=== PATIENT | female | born 1995 | race Caucasian/White ===

== ENCOUNTER 2016-11-27 22:58 | Inpatient (IN) ==
[2016-11-28 02:02] LABS: ABG Base Excess -0.7 mEq/L (-2.0 to 3.0); ABG HCO3 27.6 mEQ/L (21-27); ABG Oxygen Saturation 100 % (95-98); ABG PCO2 60 mmHg (35-45); ABG PH 7.27 pH Units (7.32-7.45); ABG PO2 254 mmHg (85-104); ABG TCO2 29.4 mEq/L (20-26)
[2016-11-28 02:04] LABS: Blood Gas FiO2 80 %
[2016-11-28] MEDS ORDERED: Naloxone 0.4 MG/ML INJ IVP PRN (03:46)
[2016-11-28] MEDS ORDERED: *HR* Morphine 2 MG/ML SYRINGE IVP PRN (03:46)
[2016-11-28] MEDS ORDERED: Lacri-Lube 3.5 GM TUBE BOTH EYES PRN (03:46)
[2016-11-28] MEDS ORDERED: Ondansetron 4 MG/2 ML VIAL IVP PRN (03:46)
[2016-11-28] MEDS ORDERED: D5% in 0.9% NACL w KCl 20 MEQ/1,000 ML MLS IVC SCH (04:00)
--- NOTE | 2016-11-28 04:05 | Internal Med History&Physical ---
Date of Encounter: 11/28/16 Time of Encounter: 03:56 Assessment and Plan (1) Drug overdose Current visit: No Status: Acute 1. Care is supportive now with Ventilator, IVF, ICU monitoring and care. 2. Consult ICU team in am to assume care on ventilator and iCU management. 3. Will order Head CT to rule out any intracranial pathology 4. Suicide precautions. 55 minutes critical care time thus far evaluating and treating patient. Qualifiers: Encounter type: initial encounter Injury intent: undetermined intent Qualified Code(s): T50.904A - Poisoning by unspecified drugs, medicaments and biological substances, undetermined, initial encounter (2) Respiratory failure requiring intubation Current visit: No Status: Acute 1. Ventilator support. 2. ABG suggest respiratory acidosis. I increased vent rate and ordered repeat ABG. 3. Consult pulmonology for ICU management. 4. If patient shows no sign of purposeful neurologic activity off the vent, she may need further testing to evaluate for anoxic brain injury and/or brain . (3) DVT prophylaxis Current visit: Yes Status: Acute 1. Heparin SQ. Internal Medicine - H&P: HPI Chief complaint: overdose; transfer from [place] Admitted From: Hospital to Hospital Transfer Plans for Post Hospital Care: Home History of present illness: Ms. Fournier is a 21 year old female who was transferred to the ICU from [facility] emergency department. She presented there tonight after becoming unresponsive at a local [facility] parking lot. She traveled to [place] from [place] with her friends. When she left [place], she was alert and appropriate. However, by the time she arrived in [place] at the local [facility], she became confused, disoriented, unresponsive, and having difficulty breathing. This information is all according to reports passed along to me. When patient arrived to ER at [place], she was noted to be unresponsive, hypoxemic, and unable to protect her airway. She was therefore emergently intubated and stabilized by Dr. White. He then requested transfer to the ICU here for ongoing care. Upon my assessment of the patient here, she is unresponsive and on the ventilator. She is on minimal sedation with propofol. Her mother has arrived and confirms that she has an intensive drug use history over the last 5 years. Her mother states she has tried anything and everything. Mother also states the patient claimed to be suicidal recently, and she worries that this overdose might have been an attempted suicide. I am unable to obtain any history from patient whatsoever. She is on minimal dosing of propofol and is unresponsive. She is breathing synchronously with the ventilator. Patient does not have any significant pupillary response. She does have a gag reflux, however, on deep suctioning of her endotracheal tube. Additionally, she does have a corneal reflex according to her nurse. I reviewed her labs and information from [facility] ER. Her drug tox screen was positive for cocaine and marijuana. Mother states she has been using ICE lately, which she states is a new form of methamphetamine on the street. Past Med Surg Social Fam HX - Past Medical History Source: old records reviewed, obtained from family Medical history: asthma, thyroid disease, other (Hepatits C; IVDA) Psychiatric history: no psych history - Past Surgical History Surgical History: cholecystectomy - Social History Smoking Status: Current every day smoker Alcohol use: rarely Drug use: cocaine, opiates, marijuana, IVDU Current living situation: Home, With Family Activity Level: Independent ambulation - Family History Mother Living Status: Still Living Hx Family Cardiac Disorders: No Hx Family Respiratory Disorders: No Father Living Status: Still Living Hx Family GI Disorders: Yes (cirrhosis) Internal Medicine - H&P: Meds Unable To Obtain [Unable to Obtain] 11/27/16 [History] Allergies ibuprofen Allergy (Unknown, Verified 11/28/16 01:45) Unknown acetaminophen [From Darvocet-N] Allergy (Verified 11/28/16 01:45) Unknown aspirin [ASA] Allergy (Verified 11/28/16 01:44) unknown propoxyphene [From Darvocet-N] Allergy (Verified 11/28/16 01:45) Unknown ROS unobtainable: due to endotracheal tube, due to mental status - Constitutional Vitals: Temp Pulse Resp BP Pulse Ox 96.4 F L 49 12 179/101 100 11/28/16 01:33 11/28/16 03:00 11/28/16 03:00 11/28/16 03:00 11/28/16 03:00 Exam: intubated; unresponsive; on minimal sedation - Head Head exam: Present: atraumatic, normal inspection - Expanded Head Exam Head exam expanded: Absent: abrasion, contusion, general tenderness - Eye Eye exam: Absent: PERRL (sluggish with zero to minimal response), scleral icterus - ENT ENT exam: Present: mucous membranes dry, normal exam, normal oropharynx Additional comments: ETT in place - Neck Neck exam general surgery: Present: full ROM, normal inspection, supple. Absent : lymphadenopathy, nuchal rigidity - Respiratory Respiratory exam: Present: CTAB. Absent: accessory muscle use, rales, respiratory distress, rhonchi, wheezes - Cardiovascular Cardiovascular exam: Present: bradycardia, RRR, +S1, +S2. Absent: diastolic murmur, JVD, systolic murmur - GI/Abdominal GI/Abdominal exam: Present: hypoactive bowel sounds, soft, no peritoneal signs. Absent: guarding, hepatomegaly, rebound, splenomegaly - Extremities Exam Extremities exam: Present: normal inspection, warm, radial pulses palpable and symetrical. Absent: pedal edema - Back Exam Back exam: Present: normal inspection. Absent: tenderness - Neurological Exam Additional comments: sedated and unresponsive; unable to fully assess; + gag reflex; + corneal reflex ; minimal, if any, pupillary reflex - Psychiatric Psychiatric exam: Present: suicidal ideation (reported from mother) Additional comments: unresponsive on vent; unable to assess - Skin Skin exam: Present: dry, warm Additional comments: multiple tattoos and track mcgill noted Internal Med - H&P Results - Labs Labs: I reviewed her labs at [place] include the following: WBC 7.1 Hemoglobin 14.2 Hematocrit 41.8 [id number] Sodium 144 Potassium 3.5 Chloride 112 CO2 22 BUN 15 Creatinine 0.79 Urine test negative Urine drug screen positive for cocaine and marijuana - ABG Interpretation ABG results: 11/28/16 01:53 ABG pH 7.27 L ABG pCO2 60 H ABG pO2 254 H ABG HCO3 27.6 H ABG Total CO2 29.4 H ABG O2 Saturation 100 H ABG Base Excess -0.7 - EKG Data -: EKG Interpreted by Myself EKG shows normal: sinus rhythm Rate: bradycardia - EKG Data Prior EKG available for review: no EKG comments: 11/28/16 04:13 Sinus bradycardia; no changes - Impressions ITS Impressions Chest X-Ray 11/28/16 01:46 IMPRESSION: No acute cardiopulmonary disease. Endotracheal tube has been placed in satisfactory position. The tip of the oral gastric tube is in the stomach with the side hole near the GE junction. D/ / Levi Seals MD / Levi Seals MD Interpreting Provider: Levi Seals MD X-Ray 11/28/16 01:47 IMPRESSION: The side hole of the oral gastric tube is at the GE junction and the tube should be advanced 3-4 cm. D/ / Levi Seals MD / Levi Seals MD Interpreting Provider: Levi Seals MD - Diagnostic Studies Chest x-ray Status: image reviewed by me (negative; ETT in place)
[2016-11-28 04:53] LABS: Basophils # 0.1 K/mcL (0.0-0.2); Basophils % 0.5 %; Eosinophils # 0.2 K/mcL (0.0-0.6); Eosinophils % 2.4 %; Hematocrit 46.5 % (35.3-44.9); Hemoglobin 14.7 g/dL (11.5-15.4); Immature Granulocytes % 0.4 % (0-4); Lymphocytes # 2.6 K/mcL (0.6-4.6); Mean Corpuscular HGB Conc 31.6 g/dL (31.6-35.5); Mean Corpuscular Hemoglobin 30.2 pg (28.0-33.3); Mean Corpuscular Volume 95.5 fL (83.0-100.0); Mean Platelet Volume 9.5 fL (9.4-12.4); Monocytes # 0.8 K/mcL (0.0-1.3); Monocytes % 8.4 %; Neutrophils # 5.8 K/mcL (1.6-8.9); Platelet Count 234 K/mcL (140-400); Red Blood Count 4.87 M/mcL (3.82-4.97); Red Cell Distribution Width 13.6 % (11.5-14.5); Segmented Neutrophils % 61.3 %
[2016-11-28] MEDS: *HR* Heparin 5,000 UNIT/ML VIAL SQ SCH ×2 (04:53→18:06)
[2016-11-28] MEDS: Lacri-Lube 3.5 GM TUBE BOTH EYES SCH ×4 (04:54→20:03)
[2016-11-28 05:01] LABS: ABG Base Excess 1.7 mEq/L (-2.0 to 3.0); ABG Oxygen Saturation 99 % (95-98); ABG PCO2 55 mmHg (35-45); ABG PH 7.33 pH Units (7.32-7.45); ABG PO2 131 mmHg (85-104); ABG TCO2 30.7 mEq/L (20-26); Blood Gas FiO2 40 %
[2016-11-28 05:05] LABS: Alanine Aminotransferase 379 Units/L (0-55); Albumin 3.3 g/dL (3.5-5.0); Albumin/Globulin Ratio 0.8 (1.1-2.2); Alkaline Phosphatase 89 Units/L (38-126); Aspartate Amino Transferase 233 Units/L (5-34); BUN/Creatinine Ratio 7 (6-26); Bilirubin,Direct 0.3 mg/dL (0.0-0.5); Bilirubin,Indirect 0.5 mg/dL (0.0-1.2); Bilirubin,Total 0.8 mg/dL (0.2-1.2); Calcium 8.8 mg/dL (8.6-10.8); Carbon Dioxide 19 mEq/L (19-29); Chloride 115 mEq/L (98-109); Globulin 3.9 g/dL (2.4-3.5); Glucose 82 mg/dL (70-99); Magnesium 2.4 mg/dL (1.6-2.6); Osmolality,Calculated 300 (280-300); Potassium 4.4 mEq/L (3.5-4.5); Sodium 147 mEq/L (136-145); Total Protein 7.2 g/dL (6.0-8.3); eGFR For African Americans > 60 (> 60); eGFR For Non-African Americans > 60 (> 60)
[2016-11-28 05:07] LABS: Blood Urea Nitrogen 5 mg/dL (7-20)
[2016-11-28] MEDS ORDERED: D5% in 0.9% NACL 1,000 ML IVC ONE (05:27)
[2016-11-28] MEDS: D5% in 0.9% NACL 1,000 ML IVC SCH ×2 (05:34→19:35)
[2016-11-28 08:04] LABS: Creatine Kinase 53 Units/L (29-168)
--- NOTE | 2016-11-28 08:46 | Pulmonology Consult Note ---
<Bradley Van - Last Filed: 11/28/16 09:09> Date of Encounter: 11/28/16 Time of Encounter: 08:30 Assessment and Plan (1) Drug overdose Current Visit: Yes Status: Acute 21 y/o female hx of extensive illicit drug use presented unresponsive and intubated from [place]. She was found unresponsive, confused and altered at [facility] in [place]. Unsure how long she was down for. Mother states she has had SI in recent past and has tried cocaine, heroin, meth in the past. EKG sinus bradycardia, pinpoint pupils and hypoxemic. Received total 5mg narcan before being transferred to [facility] ICU. ABG pH 7.33 with pCO2 55. UDS positive for marijuana and cocaine. ETOH level WNL presentation of sinus bradycardia and hypoxemia points to an opiate overdose etiology however UDS negative for opiates. She was given additional 2mg of Narcan this morning with minimal response. Obtain CT head CPK WNL Qualifiers: Encounter type: initial encounter Injury intent: undetermined intent Qualified Code(s): T50.904A - Poisoning by unspecified drugs, medicaments and biological substances, undetermined, initial encounter (2) Respiratory failure requiring intubation Current Visit: Yes Status: Acute 2nd to drug overdose Patient is off of sedation but continues to be minimally responsive. She is spontaneously breathing off of mechanical ventilator support and still intubated. unable to support her airway (3) Hepatitis C Current Visit: Yes Status: Acute 2013 hepatitis panel had Hep C antibody + will repeat has elevated ALT and AST. Los and alk phos WNL (less likely gallbladder etiology). ALT:AST ratio <2 less likely to be alcohol. ETOH negative. Start on bananna bag. Patient also had cholecystectomy in 2011. Qualifiers: Viral hepatitis chronicity: unspecified Hepatic coma status: without hepatic coma Qualified Code(s): B19.20 - Unspecified viral hepatitis C without hepatic coma (4) Suicidal ideation Current Visit: Yes Status: Acute Patient mother stated she has had SI recently. Once patient is more responsive will evaluate her and consult psychiatry. (5) DVT prophylaxis Current Visit: Yes Status: Acute EPCDS and heparin History of Present Illness Consult date: 11/28/16 Requesting physician: Rod Larson Reason for consult: other (ICU management) Chief complaint: AMS/drug overdose History of present illness: 21 y/o female transfer from [facility]. She was found unresponsive, confused and dsoriented at a local [employer] parking lot. At [place] paient was unresponsive, hypoxemic and emergently intubated. She was transferred to ICU at [facility]. SHe remained unresponsive on minimal sedation with propofol. Patient's mother states she has extensive hx of illicit drug use. Patient has recently been suicidal. She was noted to have gag and corneal reflex, but minimal pupillary response. CBC was WNL. ASL and ALT elevated. previous Hep C serology was positive. USD positive for cocaine and marijuana. CXR was negative for acute changes. EKG is sinus bradycardia. This morning patient is unresponsive, intubated and off of propofol. Breathing over the ventilator. + GAG and corneal reflex. Past Med Surg Social Fam HX - Past Medical History Medical history: asthma, thyroid disease, other (Hepatits C; IVDA) Psychiatric history: no psych history - Past Surgical History Surgical History: cholecystectomy - Social History Smoking Status: Current every day smoker Alcohol use: rarely Drug use: cocaine, opiates, marijuana, IVDU - Family History Mother Living Status: Still Living Hx Family Cardiac Disorders: No Hx Family Respiratory Disorders: No Father Living Status: Still Living Hx Family GI Disorders: Yes (cirrhosis) Medications and Allergies Unable To Obtain [Unable to Obtain] 11/27/16 [History] Allergies ibuprofen Allergy (Unknown, Verified 11/28/16 01:45) Unknown acetaminophen [From Darvocet-N] Allergy (Verified 11/28/16 01:45) Unknown aspirin [ASA] Allergy (Verified 11/28/16 01:44) unknown propoxyphene [From Darvocet-N] Allergy (Verified 11/28/16 01:45) Unknown ROS unobtainable: due to endotracheal tube, due to mental status All Systems: A 10-system review of systems was performed and is negative for pertinent findings except as documented above in the HPI. Physical Examination Vital Signs: Vital Signs, Last 4 Hours Temp Pulse Resp BP Pulse Ox 11/28/16 08:00 83 22 160/89 95 11/28/16 07:47 69 11/28/16 07:46 98.1 F 11/28/16 07:10 98.1 F 11/28/16 07:00 72 19 159/92 95 11/28/16 06:10 16 155/94 968 11/28/16 06:00 69 16 155/94 98 11/28/16 05:00 57 16 165/95 100 11/28/16 04:31 50 General appearance: comatose Eyes: nonicteric, other (pin point pupils ) Neck: no lymphadenopathy Effort: normal (spontaneious ) Inspection: other (spontatneous ventilation ) Auscultation: bilateral: clear Cardiovascular: regular rate and rhythm Gastrointestinal: normoactive bowel sounds, non-distended Integumentary: normal Extremities: no cyanosis, no edema, no clubbing unable to assess due to mental status Ventilator Settings Ventilator Settings: Ventilator Settings, Last 8 Hours Ventilator Mode VC+ Ventilator Mode VC+ Ventilator Mode VC+ Ventilator Mode VC+ Ventilator Mode VC+ Ventilator Mode VC+ Ventilator Mode VC+ Ventilator Mode VC+ Ventilator Mode VC+ Ventilator Mode VC+ Ventilator Mode VC+ Ventilator Tidal Volume 450 Setting Ventilator Tidal Volume 450 Setting Ventilator Tidal Volume 450 Setting Ventilator Tidal Volume 450 Setting Ventilator Tidal Volume 450 Setting Ventilator Tidal Volume 450 Setting Ventilator Tidal Volume 450 Setting Ventilator Tidal Volume 450 Setting Ventilator Tidal Volume 450 Setting Ventilator Tidal Volume 450 Setting Ventilator Tidal Volume 450 Setting Ventilator Respiratory Rate 14 Setting Ventilator Respiratory Rate 14 Setting Ventilator Respiratory Rate 14 Setting Ventilator Respiratory Rate 14 Setting Ventilator Respiratory Rate 12 Setting Ventilator Respiratory Rate 14 Setting Ventilator Respiratory Rate 12 Setting Ventilator Respiratory Rate 12 Setting Ventilator Respiratory Rate 12 Setting Ventilator Respiratory Rate 12 Setting Ventilator Respiratory Rate 12 Setting Actual Respiratory Rate 18 Actual Respiratory Rate 16 Actual Respiratory Rate 16 Actual Respiratory Rate 14 Actual Respiratory Rate 14 Actual Respiratory Rate 12 Actual Respiratory Rate 12 Actual Respiratory Rate 12 Actual Respiratory Rate 12 Positive End Expiratory 5 Pressure Positive End Expiratory 5 Pressure Positive End Expiratory 5 Pressure Positive End Expiratory 5 Pressure Positive End Expiratory 5 Pressure Positive End Expiratory 5 Pressure Positive End Expiratory 5 Pressure Positive End Expiratory 5 Pressure Positive End Expiratory 5 Pressure Positive End Expiratory 5 Pressure Positive End Expiratory 5 Pressure Peak Inspiratory Airway 22 Pressure Peak Inspiratory Airway 22 Pressure Peak Inspiratory Airway 22 Pressure Peak Inspiratory Airway 20 Pressure Peak Inspiratory Airway 20 Pressure Peak Inspiratory Airway 21 Pressure Peak Inspiratory Airway 21 Pressure Peak Inspiratory Airway 26 Pressure Peak Inspiratory Airway 27 Pressure Results - Laboratory Findings CBC and BMP: 11/28/16 04:25 11/28/16 04:25 ABG ABG pH 7.33 pH Units (7.32-7.45) 11/28/16 04:48 ABG pCO2 55 mmHg (35-45) H 11/28/16 04:48 ABG pO2 131 mmHg (85-104) H 11/28/16 04:48 ABG O2 Saturation 99 % (95-98) H 11/28/16 04:48 Abnormal lab findings: Abnormal lab results Hct 46.5 % (35.3-44.9) H 11/28/16 04:25 ABG pCO2 55 mmHg (35-45) H 11/28/16 04:48 ABG pO2 131 mmHg (85-104) H 11/28/16 04:48 ABG HCO3 29.0 mEQ/L (21-27) H 11/28/16 04:48 ABG Total CO2 30.7 mEq/L (20-26) H 11/28/16 04:48 ABG O2 Saturation 99 % (95-98) H 11/28/16 04:48 Sodium 147 mEq/L (136-145) H 11/28/16 04:25 Chloride 115 mEq/L (98-109) H 11/28/16 04:25 BUN 5 mg/dL (7-20) L 11/28/16 04:25 AST 233 Units/L (5-34) H 11/28/16 04:25 ALT 379 Units/L (0-55) H 11/28/16 04:25 Albumin 3.3 g/dL (3.5-5.0) L 11/28/16 04:25 Globulin 3.9 g/dL (2.4-3.5) H 11/28/16 04:25 Albumin/Globulin Ratio 0.8 (1.1-2.2) L 11/28/16 04:25 - Diagnostic Findings Chest x-ray: report reviewed - Clinical Findings Intake & Output: Intake & Output 11/27/16 11/28/16 11/28/16 23:59 07:59 15:59 Intake Total 110 / 110 Output Total 900 / 900 Balance -900 / -900 110 / 110 Weight 87.7 kg Consult Discharge Plan - Plan Referrals: NO,PCP [Primary Care Provider] - <Efrain Louise - Last Filed: 11/28/16 16:32> Date of Encounter: 11/28/16 All Systems: A 10-system review of systems was performed and is negative for pertinent findings except as documented above in the HPI. Physical Examination Vital Signs: Vital Signs, Last 4 Hours Temp Pulse Resp BP Pulse Ox 11/28/16 15:23 99.7 F H 96 23 145/89 95 11/28/16 15:00 99.7 F H 96 23 145/89 95 11/28/16 14:00 91 24 152/82 92 11/28/16 13:32 90 19 153/83 93 11/28/16 13:00 90 19 153/83 93 Ventilator Settings Ventilator Settings: Ventilator Settings, Last 8 Hours Ventilator Mode CPAP Ventilator Mode CPAP Actual Respiratory Rate 15 Actual Respiratory Rate 24 Positive End Expiratory 5 Pressure Positive End Expiratory 5 Pressure Peak Inspiratory Airway 11 Pressure Peak Inspiratory Airway 10 Pressure Results - Laboratory Findings CBC and BMP: 11/28/16 04:25 11/28/16 04:25 ABG ABG pH 7.33 pH Units (7.32-7.45) 11/28/16 04:48 ABG pCO2 55 mmHg (35-45) H 11/28/16 04:48 ABG pO2 131 mmHg (85-104) H 11/28/16 04:48 ABG O2 Saturation 99 % (95-98) H 11/28/16 04:48 Abnormal lab findings: Abnormal lab results Hct 46.5 % (35.3-44.9) H 11/28/16 04:25 ABG pCO2 55 mmHg (35-45) H 11/28/16 04:48 ABG pO2 131 mmHg (85-104) H 11/28/16 04:48 ABG HCO3 29.0 mEQ/L (21-27) H 11/28/16 04:48 ABG Total CO2 30.7 mEq/L (20-26) H 11/28/16 04:48 ABG O2 Saturation 99 % (95-98) H 11/28/16 04:48 Sodium 147 mEq/L (136-145) H 11/28/16 04:25 Chloride 115 mEq/L (98-109) H 11/28/16 04:25 BUN 5 mg/dL (7-20) L 11/28/16 04:25 AST 233 Units/L (5-34) H 11/28/16 04:25 ALT 379 Units/L (0-55) H 11/28/16 04:25 Albumin 3.3 g/dL (3.5-5.0) L 11/28/16 04:25 Globulin 3.9 g/dL (2.4-3.5) H 11/28/16 04:25 Albumin/Globulin Ratio 0.8 (1.1-2.2) L 11/28/16 04:25 Hepatitis C Ab Screen Reactive (Nonreactive) H 11/28/16 09:53 - Clinical Findings Intake & Output: Intake & Output 11/28/16 11/28/16 11/28/16 07:59 15:59 23:59 Intake Total 110 / 110 Output Total 900 / 900 325 / 325 Balance -900 / -900 -215 / -215 Weight 87.7 kg 87.2 kg - Attending Attestation I examined this patient and my medical decision-making was reviewed with the ASPHALT BLENDER/PA/Advanced Practice Nurse/Resident Physician. I agree with the documented findings, disposition and treatment plan as described except to the extent set forth below. Patient seen and examined. Labs, radiology, chart personally reviewed. Agree with resident's history and physical, assessment, plan with following comments: ENTRY LEVEL JAVA DEVELOPER: Patient lisa not follows commands, This is most likely related to over dose and it is possible there is some other illicit drugs that she has taken which is not detected on routine drug screen test. CT of the head was done. When patient wakes up if there is evidence of suicidal ideation then we will consult psychiatrist. We have to watch carefully for withdrawal symptoms Pulmonary: Acceptable oxygenation and ventilation. Patient tolerating spontaneous breathing trial and when she is more awake we will consider extubation Cardiovascular: stable. She had some evidence of bradycardia and hypertension, again could be related to her substance abuse. GI: Nutrition per dietary and GI prophylaxis per routine Heme: DVT prophylaxis per routine Renal; urine out put and renal funtion reviewed Endorcine: blood glucose is monitored Lines: all lines checked and no evidence of infections Skin: skin care to prevent pressure ulcers per nursing routine care
[2016-11-28] MEDS: Chlorhexidine Rinse 15 ML MOUTHWASH MM SCH ×2 (09:29→21:08)
[2016-11-28] MEDS: Pantoprazole 40 MG VIAL IVPB SCH (09:29)
[2016-11-28 12:19] LABS: Hepatitis A Antibody IgM Nonreactive (Nonreactive); Hepatitis B Core IgM Nonreactive (Nonreactive); Hepatitis B Surface Antigen Nonreactive (Nonreactive)
[2016-11-28 12:21] LABS: Hepatitis C Virus Antibody Reactive (Nonreactive)
[2016-11-28] MEDS: Thiamine (B-1) 100 MG, Folic Acid 1 MG in 0.9 % Sodium Chloride 50 ML IVPB SCH (16:00)
[2016-11-28] MEDS ORDERED: *HR* LORazepam 2 MG/ML VIAL IVP ONE (20:16)
[2016-11-28] MEDS ORDERED: 0.9 % Sodium Chloride 1,000 ML IVC ONE (20:16)
[2016-11-29] MEDS: Lacri-Lube 3.5 GM TUBE BOTH EYES SCH ×6 (00:25→20:48)
[2016-11-29] MEDS: D5% in 0.9% NACL 1,000 ML IVC SCH (00:33)
[2016-11-29 04:38] LABS: ABG Base Excess 2.6 mEq/L (-2.0 to 3.0); ABG HCO3 26.3 mEQ/L (21-27); ABG Oxygen Saturation 96 % (95-98); ABG PCO2 37 mmHg (35-45); ABG PH 7.46 pH Units (7.32-7.45); ABG PO2 74 mmHg (85-104); ABG TCO2 27.4 mEq/L (20-26)
[2016-11-29 04:39] LABS: Blood Gas FiO2 40 %
[2016-11-29] MEDS: *HR* Heparin 5,000 UNIT/ML VIAL SQ SCH ×2 (05:14→18:01)
[2016-11-29 05:55] LABS: Bilirubin,Urine Negative (Negative); Blood,Urine Negative (Negative); Clarity,Urine Cloudy (Clear); Color,Urine Yellow (Yellow); Glucose,Urine (UA) Normal (Normal); Ketones,Urine Negative (Negative); Leukocyte Esterase,Urine Negative (Negative); Nitrite,Urine Positive (Negative); PH,Urine 5.5 pH Units (5.0-8.0); Protein,Urine Negative (Neg-Trace); Specific Gravity,Urine 1.027 (1.010-1.025); Urobilinogen,Urine Normal (Normal)
[2016-11-29 05:58] LABS: RBC,Urine 0-3 per hpf (0-3); WBC,Urine 0-3 per hpf (0-3)
[2016-11-29 05:59] LABS: Amorphous Sediment,Urine Present (Few); Bacteria,Urine Few per hpf (None-Few); Squamous Epithelial Cell,Urine Few per lpf (None-Few)
[2016-11-29 06:23] LABS: Basophils # 0.1 K/mcL (0.0-0.2); Basophils % 0.3 %; Eosinophils % 0.1 %; Hematocrit 42.3 % (35.3-44.9); Immature Granulocytes % 0.8 % (0-4); Lymphocytes % 17.5 %; Mean Corpuscular HGB Conc 33.1 g/dL (31.6-35.5); Mean Corpuscular Hemoglobin 31.3 pg (28.0-33.3); Mean Corpuscular Volume 94.6 fL (83.0-100.0); Mean Platelet Volume 10.1 fL (9.4-12.4); Monocytes # 1.6 K/mcL (0.0-1.3); Monocytes % 7.6 %; Neutrophils # 15.3 K/mcL (1.6-8.9); Platelet Count 244 K/mcL (140-400); Red Blood Count 4.47 M/mcL (3.82-4.97); Red Cell Distribution Width 14.3 % (11.5-14.5); Segmented Neutrophils % 73.7 %
[2016-11-29 06:25] LABS: BUN/Creatinine Ratio 16 (6-26); Blood Urea Nitrogen 11 mg/dL (7-20); Carbon Dioxide 23 mEq/L (19-29); Chloride 112 mEq/L (98-109); Glucose 109 mg/dL (70-99); Osmolality,Calculated 298 (280-300); Potassium 3.5 mEq/L (3.5-4.5); Sodium 144 mEq/L (136-145); eGFR For African Americans > 60 (> 60); eGFR For Non-African Americans > 60 (> 60)
[2016-11-29 06:27] LABS: Lymphocytes # 3.6 K/mcL (0.6-4.6)
[2016-11-29] MEDS: Piperacillin/Tazobactam 3.375 GM in D5% in Water (Mini-Bag+) 100 ML IVPB SCH ×2 (07:32→15:00)
[2016-11-29] MEDS: Chlorhexidine Rinse 15 ML MOUTHWASH MM SCH ×2 (07:32→20:48)
[2016-11-29] MEDS: Pantoprazole 40 MG VIAL IVPB SCH (07:32)
--- NOTE | 2016-11-29 08:22 | Pulmonology Progress Note ---
<Bradley Van - Last Filed: 11/29/16 08:20> Date of Encounter: 11/29/16 Time of Encounter: 08:20 Assessment and Plan (1) Drug overdose Current Visit: Yes Status: Inactive 21 y/o female hx of extensive illicit drug use presented unresponsive and intubated from [place]. She was found unresponsive, confused and altered at [facility] in [place] in a car. Unsure how long she was down for. Mother states she has had SI in recent past and has tried cocaine, heroin, meth in the past. EKG sinus bradycardia, pinpoint pupils and hypoxemic. Received total 5mg narcan without change in mental status before being transferred to [facility] ICU. ABG pH 7.33 with pCO2 55. UDS positive for marijuana and cocaine. ETOH level WNL presentation of sinus bradycardia and hypoxemia points to an opiate overdose etiology however UDS negative for opiates. Unclear etiology. Family does not know what she may have used or who patient was with in the car. CT head negative CPK WNL May start tube feeds today Qualifiers: Encounter type: initial encounter Injury intent: undetermined intent Qualified Code(s): T50.904A - Poisoning by unspecified drugs, medicaments and biological substances, undetermined, initial encounter (2) Altered mental state Current Visit: Yes Status: Acute Patient arrived unresponsive to [place] [facility]. There has been no significant change in mental status from yesterday to today. Last event when patient was suctioned , she was agitated and started thrashing in bed. She had eyes open but did not respond to command. She was restarted on propofol. This morning PERRL compared to yesterday she had pin point pupils with no reaction to light downward going plantar responses b/l. She does not respond to verbal stimuli. Withdraws to painful stimuli. Qualifiers: Altered mental status type: coma Coma depth: [place] coma 3-8 Coma timing : at arrival to emergency department Qualified Code(s): R40.2432 - Iza coma scale score 3-8, at arrival to emergency department (3) Sepsis Current Visit: Yes Status: Acute possibly 2nd to aspiration pneumonia but unclear at this point. Fever, leukocytosis, new production of green sputum blood, sputum, and urine cultured Started on zosyn Qualifiers: Sepsis type: sepsis due to unspecified organism Qualified Code(s): A41.9 - Sepsis, unspecified organism (4) Aspiration pneumonia Current Visit: Yes Status: Acute Patient started spiking fevers overnight. WBC count increased from 9.5 to 20.8. Suctioned green thick sputum. Repeat CXR no acute changes noted Started on Zosyn sputum and blood cultures pending. Qualifiers: Aspiration pneumonia type: due to vomit Laterality: unspecified laterality Lung location: unspecified part of lung Qualified Code(s): J69.0 - Pneumonitis due to inhalation of food and vomit (5) Respiratory failure requiring intubation Current Visit: Yes Status: Inactive 2nd to drug overdose and aspiration pneumonia Patient had multiple elevated temperatures >100.4 overnight and suctioning of thick green sputum. Repeat CXR was unchanged from before Patient is back on sedation and mechanical ventilation unable to support her airway (6) Hepatitis C Current Visit: Yes Status: Acute 2013 hepatitis panel had Hep C antibody + Repeat hep panel + for Hep C antibody: requested Hep C genotype has elevated ALT and AST. [place] and alk phos WNL ALT:AST ratio <2 less likely to be alcohol. ETOH negative. Continue bananna bag. Patient also had cholecystectomy in 2011. Qualifiers: Viral hepatitis chronicity: unspecified Hepatic coma status: without hepatic coma Qualified Code(s): B19.20 - Unspecified viral hepatitis C without hepatic coma (7) Suicidal ideation Current Visit: Yes Status: Acute Patient mother stated she has had SI recently. Once patient is more responsive will evaluate her and consult psychiatry. (8) DVT prophylaxis Current Visit: Yes Status: Acute EPCDS and heparin Subjective Principal diagnosis: Drug overdose/AMS Interval history: Yesterday evening patient became agitated. Copious amount of thick green sputum was suctioned. She started thrashing in bed, eyes open but patient failed to follow any commands. Propofol was restarted.Spiked two fevers >100.4. She was put on Zosyn for aspiration pneumonia. Objective PUL Vital signs: Last Vital Signs Temp 100.4 F H 11/29/16 07:19 Pulse 112 11/29/16 07:25 Resp 23 11/29/16 07:00 BP 127/92 11/29/16 07:00 Pulse Ox 95 11/29/16 07:00 General appearance: no acute distress, comatose Eyes: nonicteric, other (PERRL) ENT: oropharynx moist Effort: normal Auscultation: bilateral: clear Cardiovascular: regular rate and rhythm Gastrointestinal: normoactive bowel sounds, soft, non-tender, non-distended Integumentary: other (b/l upper extremity track mcgill ) Extremities: no cyanosis, no edema, no clubbing, pulses normal pupils equal and round, unable to assess due to mental status, other (b/l plantar responses downward. ) Ventilator Settings Ventilator Settings: Ventilator Settings, Last 8 Hours Ventilator Mode VC+ Ventilator Mode VC+ Ventilator Mode VC+ Ventilator Mode VC+ Ventilator Mode VC+ Ventilator Mode VC+ Ventilator Mode VC+ Ventilator Mode VC+ Ventilator Mode VC+ Ventilator Mode VC+ Ventilator Tidal Volume 450 Setting Ventilator Tidal Volume 450 Setting Ventilator Tidal Volume 450 Setting Ventilator Tidal Volume 450 Setting Ventilator Tidal Volume 450 Setting Ventilator Tidal Volume 450 Setting Ventilator Tidal Volume 450 Setting Ventilator Tidal Volume 450 Setting Ventilator Tidal Volume 450 Setting Ventilator Tidal Volume 450 Setting Ventilator Respiratory Rate 14 Setting Ventilator Respiratory Rate 14 Setting Ventilator Respiratory Rate 14 Setting Ventilator Respiratory Rate 14 Setting Ventilator Respiratory Rate 14 Setting Ventilator Respiratory Rate 14 Setting Ventilator Respiratory Rate 14 Setting Ventilator Respiratory Rate 14 Setting Ventilator Respiratory Rate 14 Setting Ventilator Respiratory Rate 14 Setting Actual Respiratory Rate 22 Actual Respiratory Rate 23 Actual Respiratory Rate 21 Actual Respiratory Rate 22 Actual Respiratory Rate 22 Actual Respiratory Rate 22 Actual Respiratory Rate 22 Actual Respiratory Rate 23 Actual Respiratory Rate 21 Positive End Expiratory 5 Pressure Positive End Expiratory 5 Pressure Positive End Expiratory 5 Pressure Positive End Expiratory 5 Pressure Positive End Expiratory 5 Pressure Positive End Expiratory 5 Pressure Positive End Expiratory 5 Pressure Positive End Expiratory 5 Pressure Positive End Expiratory 5 Pressure Positive End Expiratory 5 Pressure Peak Inspiratory Airway 17 Pressure Peak Inspiratory Airway 18 Pressure Peak Inspiratory Airway 17 Pressure Peak Inspiratory Airway 19 Pressure Peak Inspiratory Airway 21 Pressure Peak Inspiratory Airway 21 Pressure Peak Inspiratory Airway 20 Pressure Peak Inspiratory Airway 21 Pressure Peak Inspiratory Airway 21 Pressure Results - Laboratory Findings CBC and BMP: 11/29/16 05:54 11/29/16 05:54 ABG ABG pH 7.46 pH Units (7.32-7.45) H 11/29/16 04:20 ABG pCO2 37 mmHg (35-45) 11/29/16 04:20 ABG pO2 74 mmHg (85-104) L 11/29/16 04:20 ABG O2 Saturation 96 % (95-98) 11/29/16 04:20 Abnormal lab findings: Abnormal lab results WBC 20.8 K/mcL (4.3-11.1) H D 11/29/16 05:54 Neutrophils # 15.3 K/mcL (1.6-8.9) H 11/29/16 05:54 Monocytes # 1.6 K/mcL (0.0-1.3) H 11/29/16 05:54 ABG pH 7.46 pH Units (7.32-7.45) H 11/29/16 04:20 ABG pO2 74 mmHg (85-104) L 11/29/16 04:20 ABG Total CO2 27.4 mEq/L (20-26) H 11/29/16 04:20 Chloride 112 mEq/L (98-109) H 11/29/16 05:54 Glucose 109 mg/dL (70-99) H 11/29/16 05:54 AST 233 Units/L (5-34) H 11/28/16 04:25 ALT 379 Units/L (0-55) H 11/28/16 04:25 Albumin 3.3 g/dL (3.5-5.0) L 11/28/16 04:25 Globulin 3.9 g/dL (2.4-3.5) H 11/28/16 04:25 Albumin/Globulin Ratio 0.8 (1.1-2.2) L 11/28/16 04:25 Ur Specimen Adequacy See below A 11/29/16 05:17 Urine Clarity Cloudy (Clear) A 11/29/16 05:17 Ur Specific [place] 1.027 (1.010-1.025) H 11/29/16 05:17 Urine Nitrite Positive (Negative) A 11/29/16 05:17 Ur Culture Indicated? YES (NO) A 11/29/16 05:17 Hepatitis C Ab Screen Reactive (Nonreactive) H 11/28/16 09:53 - Diagnostic Findings Chest x-ray: report reviewed - Clinical Findings Intake & Output: Intake & Output 11/28/16 11/29/16 11/29/16 23:59 07:59 15:59 Intake Total 1141.2 / 1141.2 200 / 200 Output Total 650 / 650 250 / 250 Balance 491.2 / 491.2 -50 / -50 Weight 86.9 kg 86.1 kg Consult Discharge Plan - Plan Referrals: NO,PCP [Primary Care Provider] - <Saadlla,Haval M - Last Filed: 11/29/16 15:00> Date of Encounter: 11/29/16 Objective PUL Vital signs: Last Vital Signs Temp 101.4 F H 11/29/16 11:16 Pulse 121 11/29/16 12:00 Resp 22 11/29/16 13:05 BP 146/91 11/29/16 13:05 Pulse Ox 94 11/29/16 13:05 Ventilator Settings Ventilator Settings: Ventilator Settings, Last 8 Hours Ventilator Mode VC+ Ventilator Mode VC+ Ventilator Mode VC+ Ventilator Mode VC+ Ventilator Tidal Volume 400 Setting Ventilator Tidal Volume 400 Setting Ventilator Tidal Volume 400 Setting Ventilator Tidal Volume 400 Setting Ventilator Respiratory Rate 12 Setting Ventilator Respiratory Rate 12 Setting Ventilator Respiratory Rate 12 Setting Ventilator Respiratory Rate 12 Setting Actual Respiratory Rate 22 Actual Respiratory Rate 27 Actual Respiratory Rate 25 Actual Respiratory Rate 24 Positive End Expiratory 5 Pressure Positive End Expiratory 5 Pressure Positive End Expiratory 5 Pressure Positive End Expiratory 5 Pressure Peak Inspiratory Airway 17 Pressure Peak Inspiratory Airway 14 Pressure Peak Inspiratory Airway 18 Pressure Peak Inspiratory Airway 16 Pressure Results - Laboratory Findings CBC and BMP: 11/29/16 05:54 11/29/16 05:54 ABG ABG pH 7.46 pH Units (7.32-7.45) H 11/29/16 04:20 ABG pCO2 37 mmHg (35-45) 11/29/16 04:20 ABG pO2 74 mmHg (85-104) L 11/29/16 04:20 ABG O2 Saturation 96 % (95-98) 11/29/16 04:20 Abnormal lab findings: Abnormal lab results WBC 20.8 K/mcL (4.3-11.1) H D 11/29/16 05:54 Neutrophils # 15.3 K/mcL (1.6-8.9) H 11/29/16 05:54 Monocytes # 1.6 K/mcL (0.0-1.3) H 11/29/16 05:54 ABG pH 7.46 pH Units (7.32-7.45) H 11/29/16 04:20 ABG pO2 74 mmHg (85-104) L 11/29/16 04:20 ABG Total CO2 27.4 mEq/L (20-26) H 11/29/16 04:20 Chloride 112 mEq/L (98-109) H 11/29/16 05:54 Glucose 109 mg/dL (70-99) H 11/29/16 05:54 AST 233 Units/L (5-34) H 11/28/16 04:25 ALT 379 Units/L (0-55) H 11/28/16 04:25 Albumin 3.3 g/dL (3.5-5.0) L 11/28/16 04:25 Globulin 3.9 g/dL (2.4-3.5) H 11/28/16 04:25 Albumin/Globulin Ratio 0.8 (1.1-2.2) L 11/28/16 04:25 Ur Specimen Adequacy See below A 11/29/16 05:17 Urine Clarity Cloudy (Clear) A 11/29/16 05:17 Ur Specific [place] 1.027 (1.010-1.025) H 11/29/16 05:17 Urine Nitrite Positive (Negative) A 11/29/16 05:17 Ur Culture Indicated? YES (NO) A 11/29/16 05:17 Hepatitis C Ab Screen Reactive (Nonreactive) H 11/28/16 09:53 - Microbiology Findings Microbiology Findings: Microbiology, Last 48 Hours 11/29/16 03:54 Sputum Culture - Preliminary Sputum - Clinical Findings Intake & Output: Intake & Output 11/28/16 11/29/16 11/29/16 23:59 07:59 15:59 Intake Total 1141.2 / 1141.2 200 / 200 200 / 200 Output Total 650 / 650 250 / 250 100 / 100 Balance 491.2 / 491.2 -50 / -50 100 / 100 Weight 86.9 kg 86.1 kg 86.1 kg - Attending Attestation I examined this patient and my medical decision-making was reviewed with the CUSTOMER RELATIONS ASSISTANT/PA/Advanced Practice Nurse/Resident Physician. I agree with the documented findings, disposition and treatment plan as described except to the extent set forth below. Patient seen and examined. Labs, radiology, chart personally reviewed. 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 Pulmonary: Acceptable oxygenation and ventilation. Patient has increased secretion and attempted CPAP trial, however patient continue to have vegetation and changed vent setting with lowering TV and RR. Patient still not ready for extubation. Cardiovascular: stable GI: Nutrition per dietary and GI prophylaxis per routine Heme: DVT prophylaxis per routine ID: Continue antibiotics and plan to de-escalation. Added empiric antibiotic and cultures is negative then we will de-escalation. Suspect possible aspiration pneumonia Renal; urine out put and renal funtion reviewed Endorcine: blood glucose is monitored Lines: all lines checked and no evidence of infections Skin: skin care to prevent pressure ulcers per nursing routine care I spent 35 min of Critical Care time with this patient. It involved decision making of high complexity to assess, manipulate, and support vital organ system failure and/or to prevent further life threatening deterioration of the patient' s condition. The time involved in the performance of separately reportable procedures was not counted toward critical care time.
[2016-11-29] MEDS: Thiamine (B-1) 100 MG, Folic Acid 1 MG in 0.9 % Sodium Chloride 50 ML IVPB SCH (16:44)
[2016-11-29] MEDS: FentaNYL (PF) 1,000 MCG in 0.9 % Sodium Chloride 80 ML IVC SCH (19:00)
[2016-11-30] MEDS: Piperacillin/Tazobactam 3.375 GM in D5% in Water (Mini-Bag+) 100 ML IVPB SCH ×3 (00:18→17:13)
[2016-11-30] MEDS: Lacri-Lube 3.5 GM TUBE BOTH EYES SCH ×6 (00:19→19:29)
[2016-11-30] MEDS ORDERED: Acetaminophen IV 500 MG/50 ML INFUS..BTL IVPB ONE (00:37)
[2016-11-30] MEDS ORDERED: Vancomycin 1,500 MG in D5% in Water 250 ML IVPB SCH (02:00)
[2016-11-30 04:48] LABS: Basophils % 0.2 %; Eosinophils % 0.2 %; Hematocrit 40.4 % (35.3-44.9); Hemoglobin 13.3 g/dL (11.5-15.4); Immature Granulocytes % 0.7 % (0-4); Lymphocytes # 3.7 K/mcL (0.6-4.6); Lymphocytes % 19.9 %; Mean Corpuscular HGB Conc 32.9 g/dL (31.6-35.5); Mean Corpuscular Hemoglobin 31.2 pg (28.0-33.3); Mean Corpuscular Volume 94.8 fL (83.0-100.0); Mean Platelet Volume 9.4 fL (9.4-12.4); Monocytes # 1.7 K/mcL (0.0-1.3); Neutrophils # 12.8 K/mcL (1.6-8.9); Platelet Count 210 K/mcL (140-400); Red Blood Count 4.26 M/mcL (3.82-4.97); Red Cell Distribution Width 14.4 % (11.5-14.5)
[2016-11-30 05:05] LABS: BUN/Creatinine Ratio 20 (6-26); Blood Urea Nitrogen 14 mg/dL (7-20); Calcium 8.4 mg/dL (8.6-10.8); Carbon Dioxide 26 mEq/L (19-29); Chloride 109 mEq/L (98-109); Glucose 105 mg/dL (70-99); Osmolality,Calculated 295 (280-300); Potassium 3.3 mEq/L (3.5-4.5); Sodium 142 mEq/L (136-145); eGFR For African Americans > 60 (> 60); eGFR For Non-African Americans > 60 (> 60)
[2016-11-30] MEDS: Ipratropium/Albuterol Neb 3 ML IH PRN ×2 (05:15→15:43)
[2016-11-30] MEDS: *HR* Heparin 5,000 UNIT/ML VIAL SQ SCH ×2 (05:42→18:20)
[2016-11-30 05:47] LABS: ABG Base Excess 2.6 mEq/L (-2.0 to 3.0); ABG HCO3 27.2 mEQ/L (21-27); ABG Oxygen Saturation 94 % (95-98); ABG PCO2 41 mmHg (35-45); ABG PH 7.43 pH Units (7.32-7.45); ABG PO2 67 mmHg (85-104); ABG TCO2 28.5 mEq/L (20-26)
[2016-11-30 05:48] LABS: Blood Gas FiO2 45 %
[2016-11-30] MEDS ORDERED: Sodium Phosphate 30 MMOL in D5% in Water 100 ML IVPB PRN (07:42)
[2016-11-30] MEDS ORDERED: Calcium Gluconate 1,000 MG in D5% in Water 100 ML IVPB PRN (07:42)
[2016-11-30] MEDS: FentaNYL (PF) 1,000 MCG in 0.9 % Sodium Chloride 80 ML IVC SCH ×2 (07:45→20:22)
--- NOTE | 2016-11-30 08:13 | Pulmonology Progress Note ---
<Bradley Van - Last Filed: 11/30/16 08:09> Date of Encounter: 11/30/16 Time of Encounter: 08:09 Assessment and Plan (1) Drug overdose Current Visit: Yes Status: Inactive 21 y/o female hx of extensive illicit drug use presented unresponsive and intubated from [facility]. She was found unresponsive, confused and altered at [facility] in [place] in a car. Unsure how long she was down for. Mother states she has had SI in recent past and has tried cocaine, heroin, meth in the past. EKG sinus bradycardia, pinpoint pupils and hypoxemic. Received total 5mg narcan without change in mental status before being transferred to [place] [facility]. ABG pH 7.33 with pCO2 55. UDS positive for marijuana and cocaine. ETOH level WNL presentation of sinus bradycardia and hypoxemia points to an opiate overdose etiology however UDS negative for opiates. Unclear etiology. Family stated over the phone to the nurse that she may have overdosed on gabapentin:however they are not 100% sure of this. CT head negative CPK WNL May start tube feeds today Qualifiers: Encounter type: initial encounter Injury intent: undetermined intent Qualified Code(s): T50.904A - Poisoning by unspecified drugs, medicaments and biological substances, undetermined, initial encounter (2) Sepsis Current Visit: Yes Status: Acute possibly 2nd to aspiration pneumonia Sputum culture gram negative coccobacilli -continue zosyn day 2 Urine culture gram negative jon -continue zosyn will await sensitivities for abx changes Continues to have fever and leukocytosis Qualifiers: Sepsis type: sepsis due to unspecified organism Qualified Code(s): A41.9 - Sepsis, unspecified organism (3) Altered mental state Current Visit: Yes Status: Acute Patient arrived unresponsive to [facility] ER. There has been no significant change in mental status since admission. This morning sedation was turned off and CPAP trial was started. Patient became very agitated and sedation was turned on again and patient is on VC+. PERRL, plantar responses downward b/l She does not respond to verbal stimuli. Withdraws to painful stimuli. Qualifiers: Altered mental status type: coma Coma depth: Iza coma 3-8 Coma timing : at arrival to emergency department Qualified Code(s): R40.2432 - [place] coma scale score 3-8, at arrival to emergency department (4) Aspiration pneumonia Current Visit: Yes Status: Acute WBC count decreased to 18 Suctioned green thick sputum. Repeat CXR no acute changes noted continue zosyn day 2 sputum culture gram negative coccobacilli Qualifiers: Aspiration pneumonia type: due to vomit Laterality: unspecified laterality Lung location: unspecified part of lung Qualified Code(s): J69.0 - Pneumonitis due to inhalation of food and vomit (5) Respiratory failure requiring intubation Current Visit: Yes Status: Inactive 2nd to drug overdose/aspiration pneumonia possible overdose from gabapentin Patient had multiple elevated temperatures >100.4 overnight and suctioning of thick green sputum. Repeat CXR was unchanged from before Patient is back on sedation and mechanical ventilation unable to support her airway (6) Hepatitis C Current Visit: Yes Status: Acute 2013 hepatitis panel had Hep C antibody + Repeat hep panel + for Hep C antibody: requested Hep C genotype has elevated ALT and AST. [place] and alk phos WNL ALT:AST ratio <2 less likely to be alcohol. ETOH negative. Continue bananna bag. Patient also had cholecystectomy in 2011. Qualifiers: Viral hepatitis chronicity: unspecified Hepatic coma status: without hepatic coma Qualified Code(s): B19.20 - Unspecified viral hepatitis C without hepatic coma (7) Suicidal ideation Current Visit: Yes Status: Acute Patient mother stated she has had SI recently. Family called yesterday and stated she may have taken "handfull of gabapentin'' we will continue supportive care start trickle feeds. no change in mental status. Once patient is more responsive will evaluate her and consult psychiatry. (8) DVT prophylaxis Current Visit: Yes Status: Acute EPCDS and heparin Subjective Principal diagnosis: Drug overdose/AMS Interval history: Had multiple temperature readings above 100.4 last night. Fever broke with tynenol. Overnight vancomycin was added to antibiotic regimen however from culture results it is not indicated and was d/c this morning. Sedation was turned off in the morning and CPAP was attempted. Patient opened her eyes to voice but then became restless in bed kicking legs and did not follow commands. Sedation was resumed and patient was back on mechanical ventilation. Objective PUL Vital signs: Last Vital Signs Temp 100.1 F H 11/30/16 04:00 Pulse 111 11/30/16 07:30 Resp 24 11/30/16 07:30 BP 136/77 11/30/16 07:30 Pulse Ox 98 11/30/16 07:30 General appearance: no acute distress, comatose Eyes: nonicteric ENT: oropharynx moist Neck: supple Effort: normal Auscultation: bilateral: clear Percussion: bilateral: not dull Tactile fremitus: bilateral: normal Cardiovascular: regular rate and rhythm Gastrointestinal: normoactive bowel sounds, non-distended Integumentary: normal, other (b/l track mcgill ) Extremities: no cyanosis, no edema, no clubbing unable to assess due to mental status Ventilator Settings Ventilator Settings: Ventilator Settings, Last 8 Hours Ventilator Mode VC+ Ventilator Mode VC+ Ventilator Mode VC+ Ventilator Mode VC+ Ventilator Mode VC+ Ventilator Mode VC+ Ventilator Mode VC+ Ventilator Mode VC+ Ventilator Mode VC+ Ventilator Mode VC+ Ventilator Mode VC+ Ventilator Mode VC+ Ventilator Tidal Volume 400 Setting Ventilator Tidal Volume 400 Setting Ventilator Tidal Volume 400 Setting Ventilator Tidal Volume 400 Setting Ventilator Tidal Volume 400 Setting Ventilator Tidal Volume 400 Setting Ventilator Tidal Volume 400 Setting Ventilator Tidal Volume 400 Setting Ventilator Tidal Volume 400 Setting Ventilator Tidal Volume 400 Setting Ventilator Tidal Volume 400 Setting Ventilator Tidal Volume 400 Setting Ventilator Respiratory Rate 12 Setting Ventilator Respiratory Rate 12 Setting Ventilator Respiratory Rate 12 Setting Ventilator Respiratory Rate 12 Setting Ventilator Respiratory Rate 12 Setting Ventilator Respiratory Rate 12 Setting Ventilator Respiratory Rate 12 Setting Ventilator Respiratory Rate 12 Setting Ventilator Respiratory Rate 12 Setting Ventilator Respiratory Rate 12 Setting Ventilator Respiratory Rate 12 Setting Ventilator Respiratory Rate 12 Setting Actual Respiratory Rate 24 Actual Respiratory Rate 24 Actual Respiratory Rate 23 Actual Respiratory Rate 21 Actual Respiratory Rate 24 Actual Respiratory Rate 24 Actual Respiratory Rate 24 Actual Respiratory Rate 23 Actual Respiratory Rate 22 Actual Respiratory Rate 23 Actual Respiratory Rate 24 Positive End Expiratory 5 Pressure Positive End Expiratory 5 Pressure Positive End Expiratory 5 Pressure Positive End Expiratory 5 Pressure Positive End Expiratory 5 Pressure Positive End Expiratory 5 Pressure Positive End Expiratory 5 Pressure Positive End Expiratory 5 Pressure Positive End Expiratory 5 Pressure Positive End Expiratory 5 Pressure Positive End Expiratory 5 Pressure Positive End Expiratory 5 Pressure Peak Inspiratory Airway 16 Pressure Peak Inspiratory Airway 17 Pressure Peak Inspiratory Airway 17 Pressure Peak Inspiratory Airway 20 Pressure Peak Inspiratory Airway 20 Pressure Peak Inspiratory Airway 19 Pressure Peak Inspiratory Airway 19 Pressure Peak Inspiratory Airway 19 Pressure Peak Inspiratory Airway 19 Pressure Peak Inspiratory Airway 18 Pressure Peak Inspiratory Airway 20 Pressure Results - Laboratory Findings CBC and BMP: 11/30/16 04:42 11/30/16 04:42 ABG ABG pH 7.43 pH Units (7.32-7.45) 11/30/16 05:37 ABG pCO2 41 mmHg (35-45) 11/30/16 05:37 ABG pO2 67 mmHg (85-104) L 11/30/16 05:37 ABG O2 Saturation 94 % (95-98) L 11/30/16 05:37 Abnormal lab findings: Abnormal lab results WBC 18.4 K/mcL (4.3-11.1) H 11/30/16 04:42 Neutrophils # 12.8 K/mcL (1.6-8.9) H 11/30/16 04:42 Monocytes # 1.7 K/mcL (0.0-1.3) H 11/30/16 04:42 ABG pO2 67 mmHg (85-104) L 11/30/16 05:37 ABG HCO3 27.2 mEQ/L (21-27) H 11/30/16 05:37 ABG Total CO2 28.5 mEq/L (20-26) H 11/30/16 05:37 ABG O2 Saturation 94 % (95-98) L 11/30/16 05:37 Potassium 3.3 mEq/L (3.5-4.5) L 11/30/16 04:42 Glucose 105 mg/dL (70-99) H 11/30/16 04:42 Calcium 8.4 mg/dL (8.6-10.8) L 11/30/16 04:42 AST 233 Units/L (5-34) H 11/28/16 04:25 ALT 379 Units/L (0-55) H 11/28/16 04:25 Albumin 3.3 g/dL (3.5-5.0) L 11/28/16 04:25 Globulin 3.9 g/dL (2.4-3.5) H 11/28/16 04:25 Albumin/Globulin Ratio 0.8 (1.1-2.2) L 11/28/16 04:25 Ur Specimen Adequacy See below A 11/29/16 05:17 Urine Clarity Cloudy (Clear) A 11/29/16 05:17 Ur Specific [place] 1.027 (1.010-1.025) H 11/29/16 05:17 Urine Nitrite Positive (Negative) A 11/29/16 05:17 Ur Culture Indicated? YES (NO) A 11/29/16 05:17 Hepatitis C Ab Screen Reactive (Nonreactive) H 11/28/16 09:53 - Microbiology Findings Microbiology Findings: Microbiology, Last 48 Hours 11/29/16 03:54 Sputum Culture - Preliminary Sputum Gram Negative Coccobacilli 11/29/16 06:18 Blood Culture - Preliminary Peripheral Venipuncture No growth. 11/29/16 05:52 Blood Culture - Preliminary Peripheral Venipuncture No growth. 11/29/16 05:17 Urine Culture - Preliminary Urine,Clean Catch Gram Negative Jon - Clinical Findings Intake & Output: Intake & Output 11/29/16 11/30/16 11/30/16 23:59 07:59 15:59 Intake Total 500 / 500 700 / 700 Output Total 750 / 750 500 / 500 Balance -250 / -250 200 / 200 Weight 86 kg Consult Discharge Plan - Plan Referrals: NO,PCP [Primary Care Provider] - <Efrain Louise - Last Filed: 11/30/16 22:43> Date of Encounter: 11/30/16 Objective PUL Vital signs: Last Vital Signs Temp 99.7 F H 11/30/16 15:49 Pulse 99 11/30/16 16:00 Resp 22 11/30/16 16:00 BP 123/76 11/30/16 16:00 Pulse Ox 98 11/30/16 16:00 Ventilator Settings Ventilator Settings: Ventilator Settings, Last 8 Hours Ventilator Mode VC+ Ventilator Mode VC+ Ventilator Mode VC+ Ventilator Mode VC+ Ventilator Mode VC+ Ventilator Mode VC+ Ventilator Mode VC+ Ventilator Mode VC+ Ventilator Mode VC+ Ventilator Tidal Volume 400 Setting Ventilator Tidal Volume 400 Setting Ventilator Tidal Volume 400 Setting Ventilator Tidal Volume 400 Setting Ventilator Tidal Volume 400 Setting Ventilator Tidal Volume 400 Setting Ventilator Tidal Volume 400 Setting Ventilator Tidal Volume 400 Setting Ventilator Tidal Volume 400 Setting Ventilator Respiratory Rate 12 Setting Ventilator Respiratory Rate 12 Setting Ventilator Respiratory Rate 12 Setting Ventilator Respiratory Rate 12 Setting Ventilator Respiratory Rate 12 Setting Ventilator Respiratory Rate 12 Setting Ventilator Respiratory Rate 12 Setting Ventilator Respiratory Rate 12 Setting Ventilator Respiratory Rate 12 Setting Actual Respiratory Rate 22 Actual Respiratory Rate 15 Actual Respiratory Rate 15 Actual Respiratory Rate 18 Actual Respiratory Rate 20 Actual Respiratory Rate 18 Actual Respiratory Rate 18 Actual Respiratory Rate 18 Actual Respiratory Rate 19 Positive End Expiratory 5 Pressure Positive End Expiratory 5 Pressure Positive End Expiratory 5 Pressure Positive End Expiratory 5 Pressure Positive End Expiratory 5 Pressure Positive End Expiratory 5 Pressure Positive End Expiratory 5 Pressure Positive End Expiratory 5 Pressure Positive End Expiratory 5 Pressure Peak Inspiratory Airway 19 Pressure Peak Inspiratory Airway 26 Pressure Peak Inspiratory Airway 26 Pressure Peak Inspiratory Airway 18 Pressure Peak Inspiratory Airway 19 Pressure Peak Inspiratory Airway 19 Pressure Peak Inspiratory Airway 17 Pressure Peak Inspiratory Airway 17 Pressure Peak Inspiratory Airway 18 Pressure Results - Laboratory Findings CBC and BMP: 11/30/16 04:42 11/30/16 04:42 ABG ABG pH 7.43 pH Units (7.32-7.45) 11/30/16 05:37 ABG pCO2 41 mmHg (35-45) 11/30/16 05:37 ABG pO2 67 mmHg (85-104) L 11/30/16 05:37 ABG O2 Saturation 94 % (95-98) L 11/30/16 05:37 Abnormal lab findings: Abnormal lab results WBC 18.4 K/mcL (4.3-11.1) H 11/30/16 04:42 Neutrophils # 12.8 K/mcL (1.6-8.9) H 11/30/16 04:42 Monocytes # 1.7 K/mcL (0.0-1.3) H 11/30/16 04:42 ABG pO2 67 mmHg (85-104) L 11/30/16 05:37 ABG HCO3 27.2 mEQ/L (21-27) H 11/30/16 05:37 ABG Total CO2 28.5 mEq/L (20-26) H 11/30/16 05:37 ABG O2 Saturation 94 % (95-98) L 11/30/16 05:37 Potassium 3.3 mEq/L (3.5-4.5) L 11/30/16 04:42 Glucose 105 mg/dL (70-99) H 11/30/16 04:42 POC Glucose 100 (58-89) H 11/30/16 11:50 Calcium 8.4 mg/dL (8.6-10.8) L 11/30/16 04:42 Ionized Calcium 1.12 mmol/L (1.15-1.35) L 11/30/16 08:43 AST 233 Units/L (5-34) H 11/28/16 04:25 ALT 379 Units/L (0-55) H 11/28/16 04:25 Albumin 3.3 g/dL (3.5-5.0) L 11/28/16 04:25 Globulin 3.9 g/dL (2.4-3.5) H 11/28/16 04:25 Albumin/Globulin Ratio 0.8 (1.1-2.2) L 11/28/16 04:25 Ur Specimen Adequacy See below A 11/29/16 05:17 Urine Clarity Cloudy (Clear) A 11/29/16 05:17 Ur Specific [place] 1.027 (1.010-1.025) H 11/29/16 05:17 Urine Nitrite Positive (Negative) A 11/29/16 05:17 Ur Culture Indicated? YES (NO) A 11/29/16 05:17 Hepatitis C Ab Screen Reactive (Nonreactive) H 11/28/16 09:53 - Microbiology Findings Microbiology Findings: Microbiology, Last 48 Hours 11/29/16 03:54 Sputum Culture - Preliminary Sputum Gram Negative Coccobacilli 11/29/16 06:18 Blood Culture - Preliminary Peripheral Venipuncture No growth. 11/29/16 05:52 Blood Culture - Preliminary Peripheral Venipuncture No growth. 11/29/16 05:17 Urine Culture - Preliminary Urine,Clean Catch Gram Negative Jon - Clinical Findings Intake & Output: Intake & Output 11/30/16 11/30/16 11/30/16 07:59 15:59 23:59 Intake Total 800 / 800 846 / 846 Output Total 500 / 500 275 / 275 Balance 300 / 300 571 / 571 Weight 86 kg - Attending Attestation I examined this patient and my medical decision-making was reviewed with the MAT PUNCHER/PA/Advanced Practice Nurse/Resident Physician. I agree with the documented findings, disposition and treatment plan as described except to the extent set forth below. Patient seen and examined. Labs, radiology, chart personally reviewed. Agree with resident's history and physical, assessment, plan with following comments: LINING LAYER: Patient doesn't follows commands, Pulmonary: Acceptable oxygenation and ventilation. Patient still have copious amount of secretion with mental status change, Not tolerating SBT good, will continue vent support for now. Cardiovascular: stable GI: Nutrition per dietary and GI prophylaxis per routine Heme: DVT prophylaxis per routine ID: Continue antibiotics and plan to de-escalation Renal; urine out put and renal funtion reviewed Endorcine: blood glucose is monitored Lines: all lines checked and no evidence of infections Skin: skin care to prevent pressure ulcers per nursing routine care
[2016-11-30] MEDS: Pantoprazole 40 MG VIAL IVPB SCH (08:16)
[2016-11-30] MEDS: Chlorhexidine Rinse 15 ML MOUTHWASH MM SCH ×2 (08:16→19:29)
[2016-11-30] MEDS ORDERED: Aminoglycoside Consult 1 EACH MC ONE (08:33)
[2016-11-30 08:53] LABS: Ionized Calcium 1.12 mmol/L (1.15-1.35)
[2016-11-30 09:01] LABS: Magnesium 1.8 mg/dL (1.6-2.6); Phosphorous 3.5 mg/dL (2.3-4.7)
[2016-11-30] MEDS: Magnesium Sulfate 2 GM in D5% in Water 100 ML IVPB PRN (11:00)
[2016-11-30] MEDS: Thiamine (B-1) 100 MG, Folic Acid 1 MG in 0.9 % Sodium Chloride 50 ML IVPB SCH (17:12)
[2016-12-01] MEDS: Piperacillin/Tazobactam 3.375 GM in D5% in Water (Mini-Bag+) 100 ML IVPB SCH ×4 (00:49→23:28)
[2016-12-01] MEDS: Lacri-Lube 3.5 GM TUBE BOTH EYES SCH ×3 (00:50→09:45)
[2016-12-01 04:20] LABS: Basophils % 0.2 %; Eosinophils # 0.2 K/mcL (0.0-0.6); Eosinophils % 1.9 %; Hematocrit 38.5 % (35.3-44.9); Hemoglobin 12.6 g/dL (11.5-15.4); Immature Granulocytes % 1.2 % (0-4); Lymphocytes % 16.1 %; Mean Corpuscular HGB Conc 32.7 g/dL (31.6-35.5); Mean Corpuscular Hemoglobin 30.6 pg (28.0-33.3); Mean Corpuscular Volume 93.4 fL (83.0-100.0); Mean Platelet Volume 9.3 fL (9.4-12.4); Monocytes # 0.9 K/mcL (0.0-1.3); Monocytes % 7.2 %; Neutrophils # 9.1 K/mcL (1.6-8.9); Platelet Count 193 K/mcL (140-400); Red Blood Count 4.12 M/mcL (3.82-4.97); Red Cell Distribution Width 13.6 % (11.5-14.5); Segmented Neutrophils % 73.4 %
[2016-12-01 04:27] LABS: Ionized Calcium 1.12 mmol/L (1.15-1.35)
[2016-12-01 04:39] LABS: Magnesium 1.6 mg/dL (1.6-2.6); Phosphorous 3.3 mg/dL (2.3-4.7)
[2016-12-01 04:40] LABS: BUN/Creatinine Ratio 17 (6-26); Blood Urea Nitrogen 11 mg/dL (7-20); Calcium 8.5 mg/dL (8.6-10.8); Carbon Dioxide 24 mEq/L (19-29); Chloride 103 mEq/L (98-109); Glucose 102 mg/dL (70-99); Osmolality,Calculated 288 (280-300); Potassium 3.3 mEq/L (3.5-4.5); Sodium 139 mEq/L (136-145); eGFR For African Americans > 60 (> 60); eGFR For Non-African Americans > 60 (> 60)
[2016-12-01 04:52] LABS: Platelet Estimate Normal (Normal)
[2016-12-01] MEDS: *HR* Heparin 5,000 UNIT/ML VIAL SQ SCH ×2 (05:32→16:53)
[2016-12-01] MEDS: Potassium Chloride Elixir 20 MEQ/15 ML UDC GTUBE PRN (05:32)
[2016-12-01] MEDS: Magnesium Sulfate 2 GM in D5% in Water 100 ML IVPB PRN (05:32)
[2016-12-01 05:58] LABS: ABG Base Excess 4.8 mEq/L (-2.0 to 3.0); ABG HCO3 29.9 mEQ/L (21-27); ABG Oxygen Saturation 91 % (95-98); ABG PCO2 45 mmHg (35-45); ABG PH 7.43 pH Units (7.32-7.45); ABG PO2 60 mmHg (85-104); ABG TCO2 31.3 mEq/L (20-26)
[2016-12-01 05:59] LABS: Blood Gas FiO2 35 %
--- NOTE | 2016-12-01 07:12 | Pulmonology Progress Note ---
<Levi Kemp - Last Filed: 12/01/16 12:37> Date of Encounter: 12/01/16 Time of Encounter: 07:12 Assessment and Plan (1) Drug overdose Current Visit: Yes Status: Acute 21 y/o female hx of extensive illicit drug use presented unresponsive and intubated from [place]. She was found unresponsive, confused and altered at [facility] in [place] in a car. Unsure how long she was down for. Mother states she has had SI in recent past and has tried cocaine, heroin, meth in the past. EKG sinus bradycardia, pinpoint pupils and hypoxemic. Received total 5mg narcan without change in mental status before being transferred to [facility] ICU. ABG pH 7.33 with pCO2 55. UDS positive for marijuana and cocaine. ETOH level WNL presentation of sinus bradycardia and hypoxemia points to an opiate overdose etiology however UDS negative for opiates. Unclear etiology. Family stated over the phone to the nurse that she may have overdosed on gabapentin:however they are not 100% sure of this. CT head negative CPK WNL Pt was successfully extubated today, satting 95% on 2L of NC, she states that she is currently not suicidal, will con't to keep her today in ICU and closely monitor her clinical status. Qualifiers: Qualified Code(s): T50.901A - Poisoning by unspecified drugs, medicaments and biological substances, accidental (unintentional), initial encounter (2) Suicidal ideation Current Visit: Yes Status: Acute Patient mother stated she has had SI recently. Family called yesterday and stated she may have taken "handfull of gabapentin'' we will continue supportive care Successfully extubated today, pt states that she is currently not suicidal, will con't closely monitor her in ICU. (3) Respiratory failure requiring intubation Current Visit: Yes Status: Acute Likely 2/2 drug overdose/aspiration pneumonia possible overdose from gabapentin Patient had multiple elevated temperatures >100.4 overnight and suctioning of thick green sputum. Repeat CXR was unchanged from before Today she was successfully extubated, currently satting 95% on 2L of NC, will con't to closely monitor her in ICU. (4) Aspiration pneumonia Current Visit: Yes Status: Acute Today her WBC count decreased to 12.4. Suctioned green thick sputum. Repeat CXR no acute changes noted. continue zosyn day 3. sputum culture gram negative coccobacilli. Qualifiers: Aspiration pneumonia type: due to vomit Laterality: unspecified laterality Lung location: unspecified part of lung Qualified Code(s): J69.0 - Pneumonitis due to inhalation of food and vomit (5) Sepsis Current Visit: Yes Status: Acute Spiked fever of 101.1F overnight, leukocytosis improved. possibly 2nd to aspiration pneumonia Sputum culture gram negative coccobacilli -continue zosyn day 3 Urine culture gram negative kun -continue zosyn will await sensitivities for abx changes. Qualifiers: Sepsis type: sepsis due to unspecified organism Qualified Code(s): A41.9 - Sepsis, unspecified organism (6) DVT prophylaxis Current Visit: Yes Status: Acute Heparin SQ daily. Subjective Principal diagnosis: Drug overdose/AMS Interval history: Pt seen and examined, no acute events overnight, she is currently on minimum vent support, will try to wean her off of sedation this AM and try extubation. Objective PUL Vital signs: Last Vital Signs Temp 99.6 F 12/01/16 03:00 Pulse 110 12/01/16 05:59 Resp 21 12/01/16 05:59 BP 132/84 12/01/16 05:59 Pulse Ox 91 12/01/16 05:59 General appearance: no acute distress, other (on iv sedation) Eyes: nonicteric ENT: oropharynx moist Neck: supple Effort: normal Auscultation: bilateral: clear Cardiovascular: regular rate and rhythm Gastrointestinal: normoactive bowel sounds, soft, non-distended Integumentary: normal Extremities: no cyanosis, no edema, no clubbing Musculoskeletal: no deformities pupils equal and round, other (on iv sedation) Ventilator Settings Ventilator Settings: Ventilator Settings, Last 8 Hours Ventilator Mode VC+ Ventilator Mode VC+ Ventilator Mode VC+ Ventilator Mode VC+ Ventilator Mode VC+ Ventilator Mode VC+ Ventilator Mode VC+ Ventilator Mode VC+ Ventilator Mode VC+ Ventilator Mode VC+ Ventilator Mode VC+ Ventilator Mode VC+ Ventilator Tidal Volume 400 Setting Ventilator Tidal Volume 400 Setting Ventilator Tidal Volume 400 Setting Ventilator Tidal Volume 400 Setting Ventilator Tidal Volume 400 Setting Ventilator Tidal Volume 400 Setting Ventilator Tidal Volume 400 Setting Ventilator Tidal Volume 400 Setting Ventilator Tidal Volume 400 Setting Ventilator Tidal Volume 400 Setting Ventilator Tidal Volume 400 Setting Ventilator Tidal Volume 400 Setting Ventilator Respiratory Rate 12 Setting Ventilator Respiratory Rate 12 Setting Ventilator Respiratory Rate 12 Setting Ventilator Respiratory Rate 12 Setting Ventilator Respiratory Rate 12 Setting Ventilator Respiratory Rate 12 Setting Ventilator Respiratory Rate 12 Setting Ventilator Respiratory Rate 12 Setting Ventilator Respiratory Rate 12 Setting Ventilator Respiratory Rate 12 Setting Ventilator Respiratory Rate 12 Setting Ventilator Respiratory Rate 12 Setting Actual Respiratory Rate 23 Actual Respiratory Rate 22 Actual Respiratory Rate 21 Actual Respiratory Rate 21 Actual Respiratory Rate 21 Actual Respiratory Rate 21 Actual Respiratory Rate 21 Actual Respiratory Rate 23 Actual Respiratory Rate 21 Actual Respiratory Rate 21 Actual Respiratory Rate 20 Positive End Expiratory 5 Pressure Positive End Expiratory 5 Pressure Positive End Expiratory 5 Pressure Positive End Expiratory 5 Pressure Positive End Expiratory 5 Pressure Positive End Expiratory 5 Pressure Positive End Expiratory 5 Pressure Positive End Expiratory 5 Pressure Positive End Expiratory 5 Pressure Positive End Expiratory 5 Pressure Positive End Expiratory 5 Pressure Positive End Expiratory 5 Pressure Peak Inspiratory Airway 23 Pressure Peak Inspiratory Airway 22 Pressure Peak Inspiratory Airway 23 Pressure Peak Inspiratory Airway 23 Pressure Peak Inspiratory Airway 23 Pressure Peak Inspiratory Airway 19 Pressure Peak Inspiratory Airway 19 Pressure Peak Inspiratory Airway 19 Pressure Peak Inspiratory Airway 21 Pressure Peak Inspiratory Airway 21 Pressure Peak Inspiratory Airway 21 Pressure Results - Laboratory Findings CBC and BMP: 12/01/16 04:00 12/01/16 04:00 ABG ABG pH 7.43 pH Units (7.32-7.45) 12/01/16 05:50 ABG pCO2 45 mmHg (35-45) 12/01/16 05:50 ABG pO2 60 mmHg (85-104) L 12/01/16 05:50 ABG O2 Saturation 91 % (95-98) L 12/01/16 05:50 Abnormal lab findings: Abnormal lab results WBC 12.4 K/mcL (4.3-11.1) H 12/01/16 04:00 MPV 9.3 fL (9.4-12.4) L 12/01/16 04:00 Neutrophils # 9.1 K/mcL (1.6-8.9) H 12/01/16 04:00 ABG pO2 60 mmHg (85-104) L 12/01/16 05:50 ABG HCO3 29.9 mEQ/L (21-27) H 12/01/16 05:50 ABG Total CO2 31.3 mEq/L (20-26) H 12/01/16 05:50 ABG O2 Saturation 91 % (95-98) L 12/01/16 05:50 ABG Base Excess 4.8 mEq/L (-2.0 to 3.0) H 12/01/16 05:50 Potassium 3.3 mEq/L (3.5-4.5) L 12/01/16 04:00 Glucose 102 mg/dL (70-99) H 12/01/16 04:00 POC Glucose 105 (58-89) H 11/30/16 23:27 Calcium 8.5 mg/dL (8.6-10.8) L 12/01/16 04:00 Ionized Calcium 1.12 mmol/L (1.15-1.35) L 12/01/16 04:00 AST 233 Units/L (5-34) H 11/28/16 04:25 ALT 379 Units/L (0-55) H 11/28/16 04:25 Albumin 3.3 g/dL (3.5-5.0) L 11/28/16 04:25 Globulin 3.9 g/dL (2.4-3.5) H 11/28/16 04:25 Albumin/Globulin Ratio 0.8 (1.1-2.2) L 11/28/16 04:25 Ur Specimen Adequacy See below A 11/29/16 05:17 Urine Clarity Cloudy (Clear) A 11/29/16 05:17 Ur Specific [place] 1.027 (1.010-1.025) H 11/29/16 05:17 Urine Nitrite Positive (Negative) A 11/29/16 05:17 Ur Culture Indicated? YES (NO) A 11/29/16 05:17 Hepatitis C Ab Screen Reactive (Nonreactive) H 11/28/16 09:53 - Microbiology Findings Microbiology Findings: Microbiology, Last 48 Hours 11/29/16 05:17 Urine Culture - Final Urine,Clean Catch Escherichia coli 11/29/16 03:54 Sputum Culture - Preliminary Sputum Gram Negative Coccobacilli 11/29/16 06:18 Blood Culture - Preliminary Peripheral Venipuncture No growth. 11/29/16 05:52 Blood Culture - Preliminary Peripheral Venipuncture No growth. - Clinical Findings Intake & Output: Intake & Output 11/30/16 11/30/16 12/01/16 15:59 23:59 07:59 Intake Total 846 / 846 551.2 / 551.2 733 / 733 Output Total 275 / 275 250 / 250 175 / 175 Balance 571 / 571 301.2 / 301.2 558 / 558 Weight 87.3 kg Consult Discharge Plan - Plan Referrals: NO,PCP [Primary Care Provider] - <AspenEfrain M - Last Filed: 12/01/16 18:37> Date of Encounter: 12/01/16 Objective PUL Vital signs: Last Vital Signs Temp 99.3 F 12/01/16 09:00 Pulse 123 12/01/16 10:15 Resp 26 12/01/16 10:15 BP 134/88 12/01/16 10:15 Pulse Ox 96 12/01/16 10:15 Ventilator Settings Ventilator Settings: Ventilator Settings, Last 8 Hours Ventilator Mode VC+ Ventilator Mode VC+ Ventilator Mode VC+ Ventilator Mode VC+ Ventilator Mode VC+ Ventilator Mode VC+ Ventilator Mode VC+ Ventilator Mode VC+ Ventilator Mode VC+ Ventilator Tidal Volume 400 Setting Ventilator Tidal Volume 400 Setting Ventilator Tidal Volume 400 Setting Ventilator Tidal Volume 400 Setting Ventilator Tidal Volume 400 Setting Ventilator Tidal Volume 400 Setting Ventilator Tidal Volume 400 Setting Ventilator Tidal Volume 400 Setting Ventilator Tidal Volume 400 Setting Ventilator Respiratory Rate 12 Setting Ventilator Respiratory Rate 12 Setting Ventilator Respiratory Rate 12 Setting Ventilator Respiratory Rate 12 Setting Ventilator Respiratory Rate 12 Setting Ventilator Respiratory Rate 12 Setting Ventilator Respiratory Rate 12 Setting Ventilator Respiratory Rate 12 Setting Ventilator Respiratory Rate 12 Setting Actual Respiratory Rate 23 Actual Respiratory Rate 23 Actual Respiratory Rate 23 Actual Respiratory Rate 23 Actual Respiratory Rate 22 Actual Respiratory Rate 21 Actual Respiratory Rate 21 Actual Respiratory Rate 21 Positive End Expiratory 5 Pressure Positive End Expiratory 5 Pressure Positive End Expiratory 5 Pressure Positive End Expiratory 5 Pressure Positive End Expiratory 5 Pressure Positive End Expiratory 5 Pressure Positive End Expiratory 5 Pressure Positive End Expiratory 5 Pressure Positive End Expiratory 5 Pressure Peak Inspiratory Airway 23 Pressure Peak Inspiratory Airway 23 Pressure Peak Inspiratory Airway 23 Pressure Peak Inspiratory Airway 23 Pressure Peak Inspiratory Airway 22 Pressure Peak Inspiratory Airway 23 Pressure Peak Inspiratory Airway 23 Pressure Peak Inspiratory Airway 23 Pressure Results - Laboratory Findings CBC and BMP: 12/01/16 04:00 12/01/16 04:00 ABG ABG pH 7.43 pH Units (7.32-7.45) 12/01/16 05:50 ABG pCO2 45 mmHg (35-45) 12/01/16 05:50 ABG pO2 60 mmHg (85-104) L 12/01/16 05:50 ABG O2 Saturation 91 % (95-98) L 12/01/16 05:50 Abnormal lab findings: Abnormal lab results WBC 12.4 K/mcL (4.3-11.1) H 12/01/16 04:00 MPV 9.3 fL (9.4-12.4) L 12/01/16 04:00 Neutrophils # 9.1 K/mcL (1.6-8.9) H 12/01/16 04:00 ABG pO2 60 mmHg (85-104) L 12/01/16 05:50 ABG HCO3 29.9 mEQ/L (21-27) H 12/01/16 05:50 ABG Total CO2 31.3 mEq/L (20-26) H 12/01/16 05:50 ABG O2 Saturation 91 % (95-98) L 12/01/16 05:50 ABG Base Excess 4.8 mEq/L (-2.0 to 3.0) H 12/01/16 05:50 Potassium 3.3 mEq/L (3.5-4.5) L 12/01/16 04:00 Glucose 102 mg/dL (70-99) H 12/01/16 04:00 POC Glucose 105 (58-89) H 11/30/16 23:27 Calcium 8.5 mg/dL (8.6-10.8) L 12/01/16 04:00 Ionized Calcium 1.12 mmol/L (1.15-1.35) L 12/01/16 04:00 AST 233 Units/L (5-34) H 11/28/16 04:25 ALT 379 Units/L (0-55) H 11/28/16 04:25 Albumin 3.3 g/dL (3.5-5.0) L 11/28/16 04:25 Globulin 3.9 g/dL (2.4-3.5) H 11/28/16 04:25 Albumin/Globulin Ratio 0.8 (1.1-2.2) L 11/28/16 04:25 Ur Specimen Adequacy See below A 11/29/16 05:17 Urine Clarity Cloudy (Clear) A 11/29/16 05:17 Ur Specific [place] 1.027 (1.010-1.025) H 11/29/16 05:17 Urine Nitrite Positive (Negative) A 11/29/16 05:17 Ur Culture Indicated? YES (NO) A 11/29/16 05:17 Hepatitis C Ab Screen Reactive (Nonreactive) H 11/28/16 09:53 - Microbiology Findings Microbiology Findings: Microbiology, Last 48 Hours 11/29/16 05:17 Urine Culture - Final Urine,Clean Catch Escherichia coli 11/29/16 03:54 Sputum Culture - Preliminary Sputum Gram Negative Coccobacilli 11/29/16 06:18 Blood Culture - Preliminary Peripheral Venipuncture No growth. 11/29/16 05:52 Blood Culture - Preliminary Peripheral Venipuncture No growth. - Clinical Findings Intake & Output: Intake & Output 11/30/16 12/01/16 12/01/16 23:59 07:59 15:59 Intake Total 551.2 / 551.2 733 / 733 Output Total 250 / 250 175 / 175 125 / 125 Balance 301.2 / 301.2 558 / 558 -125 / -125 Weight 87.3 kg - Attending Attestation I examined this patient and my medical decision-making was reviewed with the POLISHER BALANCE SCREWHEAD/PA/Advanced Practice Nurse/Resident Physician. I agree with the documented findings, disposition and treatment plan as described except to the extent set forth below. Patient seen and examined. Labs, radiology, chart personally reviewed. 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 Pulmonary: Acceptable oxygenation and ventilation. Due to her mental status change was not able to complete or have a reliable CPAP trial for that reason patient was extubated and no immediate complication after that. Cardiovascular: stable GI: Nutrition per dietary and GI prophylaxis per routine Heme: DVT prophylaxis per routine ID: Continue antibiotics and plan to de-escalation Renal; urine out put and renal funtion reviewed Endorcine: blood glucose is monitored Lines: all lines checked and no evidence of infections Skin: skin care to prevent pressure ulcers per nursing routine care Will monitor patient in ICU and to fully her mental status will improve slowly and then psych evaluation.
[2016-12-01] MEDS: Ipratropium/Albuterol Neb 3 ML IH PRN (09:25)
[2016-12-01] MEDS: Chlorhexidine Rinse 15 ML MOUTHWASH MM SCH ×2 (09:45→20:24)
[2016-12-01] MEDS: Pantoprazole 40 MG VIAL IVPB SCH (09:48)
[2016-12-01 11:44] LABS: HCV Quant Interpretation DETECTED (Not Detected)
[2016-12-01] MEDS ORDERED: 0.9 % Sodium Chloride 500 ML IVC ONE (12:39)
[2016-12-01] MEDS: Nystatin SUSP 5 ML UD.LIQ PO SCH ×3 (13:50→20:24)
[2016-12-01] MEDS ORDERED: Acetaminophen 325 MG TABLET PO PRN (15:11)
[2016-12-01] MEDS: Ipratropium/Albuterol Neb 3 ML IH SCH ×2 (15:36→21:21)
[2016-12-01] MEDS: Thiamine (B-1) 100 MG, Folic Acid 1 MG in 0.9 % Sodium Chloride 50 ML IVPB SCH (16:55)
[2016-12-01] MEDS ORDERED: traMADol 50 MG TABLET PO PRN (21:58)
[2016-12-02] MEDS: Ipratropium/Albuterol Neb 3 ML IH SCH ×4 (03:47→22:14)
[2016-12-02 04:13] LABS: Basophils % 0.4 %; Eosinophils # 0.2 K/mcL (0.0-0.6); Eosinophils % 3.4 %; Hematocrit 34.1 % (35.3-44.9); Hemoglobin 11.5 g/dL (11.5-15.4); Immature Granulocytes % 0.6 % (0-4); Immature Platelets 2.5 % (1.1-6.1); Lymphocytes # 1.7 K/mcL (0.6-4.6); Lymphocytes % 23.8 %; Mean Corpuscular HGB Conc 33.7 g/dL (31.6-35.5); Mean Corpuscular Hemoglobin 31.2 pg (28.0-33.3); Mean Corpuscular Volume 92.4 fL (83.0-100.0); Mean Platelet Volume 9.3 fL (9.4-12.4); Monocytes # 0.5 K/mcL (0.0-1.3); Monocytes % 6.6 %; Neutrophils # 4.6 K/mcL (1.6-8.9); Platelet Count 197 K/mcL (140-400); Red Blood Count 3.69 M/mcL (3.82-4.97); Red Cell Distribution Width 13.2 % (11.5-14.5); Segmented Neutrophils % 65.2 %
[2016-12-02 04:27] LABS: BUN/Creatinine Ratio 11 (6-26); Blood Urea Nitrogen 6 mg/dL (7-20); Calcium 8.4 mg/dL (8.6-10.8); Carbon Dioxide 25 mEq/L (19-29); Chloride 106 mEq/L (98-109); Glucose 91 mg/dL (70-99); Osmolality,Calculated 287 (280-300); Potassium 3.2 mEq/L (3.5-4.5); Sodium 140 mEq/L (136-145); eGFR For African Americans > 60 (> 60); eGFR For Non-African Americans > 60 (> 60)
[2016-12-02 04:56] LABS: Ionized Calcium 1.08 mmol/L (1.15-1.35)
[2016-12-02 05:09] LABS: Magnesium 1.5 mg/dL (1.6-2.6); Phosphorous 2.8 mg/dL (2.3-4.7)
--- NOTE | 2016-12-02 05:45 | Pulmonology Progress Note ---
<KemarchinoEfrain heard M - Last Filed: 12/02/16 09:38> Date of Encounter: 12/02/16 Objective PUL Vital signs: Last Vital Signs Temp 98.5 F 12/02/16 08:00 Pulse 101 12/02/16 09:00 Resp 18 12/02/16 09:00 BP 108/76 12/02/16 09:00 Pulse Ox 96 12/02/16 09:00 Results - Laboratory Findings CBC and BMP: 12/02/16 04:10 12/02/16 04:10 ABG ABG pH 7.43 pH Units (7.32-7.45) 12/01/16 05:50 ABG pCO2 45 mmHg (35-45) 12/01/16 05:50 ABG pO2 60 mmHg (85-104) L 12/01/16 05:50 ABG O2 Saturation 91 % (95-98) L 12/01/16 05:50 Abnormal lab findings: Abnormal lab results RBC 3.69 M/mcL (3.82-4.97) L 12/02/16 04:10 Hct 34.1 % (35.3-44.9) L 12/02/16 04:10 MPV 9.3 fL (9.4-12.4) L 12/02/16 04:10 ABG pO2 60 mmHg (85-104) L 12/01/16 05:50 ABG HCO3 29.9 mEQ/L (21-27) H 12/01/16 05:50 ABG Total CO2 31.3 mEq/L (20-26) H 12/01/16 05:50 ABG O2 Saturation 91 % (95-98) L 12/01/16 05:50 ABG Base Excess 4.8 mEq/L (-2.0 to 3.0) H 12/01/16 05:50 Potassium 3.2 mEq/L (3.5-4.5) L 12/02/16 04:10 BUN 6 mg/dL (7-20) L 12/02/16 04:10 Creatinine 0.55 mg/dL (0.57-1.11) L 12/02/16 04:10 POC Glucose 105 (58-89) H 11/30/16 23:27 Calcium 8.4 mg/dL (8.6-10.8) L 12/02/16 04:10 Ionized Calcium 1.08 mmol/L (1.15-1.35) L 12/02/16 04:10 Magnesium 1.5 mg/dL (1.6-2.6) L 12/02/16 04:10 AST 233 Units/L (5-34) H 11/28/16 04:25 ALT 379 Units/L (0-55) H 11/28/16 04:25 Albumin 3.3 g/dL (3.5-5.0) L 11/28/16 04:25 Globulin 3.9 g/dL (2.4-3.5) H 11/28/16 04:25 Albumin/Globulin Ratio 0.8 (1.1-2.2) L 11/28/16 04:25 Ur Specimen Adequacy See below A 11/29/16 05:17 Urine Clarity Cloudy (Clear) A 11/29/16 05:17 Ur Specific [place] 1.027 (1.010-1.025) H 11/29/16 05:17 Urine Nitrite Positive (Negative) A 11/29/16 05:17 Ur Culture Indicated? YES (NO) A 11/29/16 05:17 Hepatitis C Ab Screen Reactive (Nonreactive) H 11/28/16 09:53 - Microbiology Findings Microbiology Findings: Microbiology, Last 48 Hours 11/29/16 05:17 Urine Culture - Final Urine,Clean Catch Escherichia coli 11/29/16 03:54 Sputum Culture - Preliminary Sputum Gram Negative Coccobacilli 11/29/16 06:18 Blood Culture - Preliminary Peripheral Venipuncture No growth. 11/29/16 05:52 Blood Culture - Preliminary Peripheral Venipuncture No growth. - Clinical Findings Intake & Output: Intake & Output 12/01/16 12/02/16 12/02/16 23:59 07:59 15:59 Intake Total 151.2 / 151.2 100 / 100 Output Total 1000 / 1000 650 / 650 Balance -848.8 / -848.8 -550 / -550 Weight 87.1 kg Consult Discharge Plan - Plan Referrals: NO,PCP [Primary Care Provider] - - Attending Attestation I examined this patient and my medical decision-making was reviewed with the CITRUS FRUIT COLORER/PA/Advanced Practice Nurse/Resident Physician. I agree with the documented findings, disposition and treatment plan as described except to the extent set forth below. Patient seen and examined. Labs, radiology, chart personally reviewed. 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 Pulmonary: Acceptable oxygenation and ventilation Cardiovascular: stable GI: Nutrition per dietary and GI prophylaxis per routine Heme: DVT prophylaxis per routine ID: Continue antibiotics and plan to de-escalation Renal; urine out put and renal funtion reviewed and remove Ha catheter Endorcine: blood glucose is monitored Lines: all lines checked and no evidence of infections Skin: skin care to prevent pressure ulcers per nursing routine care Patient can be transferred out of ICU and she was advised to change her lifestyle. <Levi Kemp - Last Filed: 12/02/16 10:06> Date of Encounter: 12/02/16 Time of Encounter: 05:45 Assessment and Plan (1) Drug overdose Current Visit: Yes Status: Acute 21 y/o female hx of extensive illicit drug use presented unresponsive and intubated from [place]. She was found unresponsive, confused and altered at [facility] in [place] in a car. Unsure how long she was down for. Mother states she has had SI in recent past and has tried cocaine, heroin, meth in the past. EKG sinus bradycardia, pinpoint pupils and hypoxemic. Received total 5mg narcan without change in mental status before being transferred to [facility] ICU. ABG pH 7.33 with pCO2 55. UDS positive for marijuana and cocaine. ETOH level WNL presentation of sinus bradycardia and hypoxemia points to an opiate overdose etiology however UDS negative for opiates. Unclear etiology. Family stated over the phone to the nurse that she may have overdosed on gabapentin:however they are not 100% sure of this. CT head negative CPK WNL Pt was successfully extubated yesterday, satting 95% on room air, she states that she is currently not suicidal, she is stable to be transferred out of ICU to medical floor today, sign out has been given to the admitting physician. Qualifiers: Qualified Code(s): T50.901A - Poisoning by unspecified drugs, medicaments and biological substances, accidental (unintentional), initial encounter (2) Suicidal ideation Current Visit: Yes Status: Acute Patient mother stated she has had SI recently. Family called yesterday and stated she may have taken "handfull of gabapentin'' we will continue supportive care Successfully extubated yesterday, pt states that she is currently not suicidal, for her history of depression, we will start on antidepressant medication today. (3) Respiratory failure requiring intubation Current Visit: Yes Status: Acute Likely 2/2 drug overdose/aspiration pneumonia possible overdose from gabapentin Patient had multiple elevated temperatures >100.4 overnight and suctioning of thick green sputum. Repeat CXR was unchanged from before Yesterday she was successfully extubated, currently satting 95% on room air, patient is stable to be transferred out of ICU today. (4) Aspiration pneumonia Current Visit: Yes Status: Acute Today her WBC count normalized. Suctioned green thick sputum. Repeat CXR no acute changes noted. sputum culture gram negative coccobacilli. Based on the culture sensitivity, will switch from Zosyn to ciprofloxacin by mouth antibiotic today. Qualifiers: Aspiration pneumonia type: due to vomit Laterality: unspecified laterality Lung location: unspecified part of lung Qualified Code(s): J69.0 - Pneumonitis due to inhalation of food and vomit (5) DVT prophylaxis Current Visit: Yes Status: Acute Heparin SQ daily. Subjective Principal diagnosis: Drug overdose/AMS Interval history: Pt seen and examined, no acute events overnight, patient was successfully extubated yesterday, she is satting 95% on room air sitting comfortably in a bed , tolerating regular diet fine. Patient states that she is not suicidal at this time. Objective PUL Vital signs: Last Vital Signs Temp 98.7 F 12/02/16 03:23 Pulse 105 12/02/16 05:00 Resp 26 12/02/16 05:00 BP 125/85 12/02/16 05:00 Pulse Ox 94 12/02/16 05:00 General appearance: no acute distress, alert Eyes: nonicteric ENT: oropharynx moist Neck: supple Effort: normal Auscultation: bilateral: clear Cardiovascular: regular rate and rhythm Gastrointestinal: normoactive bowel sounds, soft, non-tender, non-distended Integumentary: normal Extremities: no cyanosis, no edema, no clubbing, pink and warm, pulses normal Musculoskeletal: no deformities normal mental status, non-focal exam, pupils equal and round, CN II-XII normal mood appropriate, affect normal Results - Laboratory Findings CBC and BMP: 12/02/16 04:10 12/02/16 04:10 ABG ABG pH 7.43 pH Units (7.32-7.45) 12/01/16 05:50 ABG pCO2 45 mmHg (35-45) 12/01/16 05:50 ABG pO2 60 mmHg (85-104) L 12/01/16 05:50 ABG O2 Saturation 91 % (95-98) L 12/01/16 05:50 Abnormal lab findings: Abnormal lab results RBC 3.69 M/mcL (3.82-4.97) L 12/02/16 04:10 Hct 34.1 % (35.3-44.9) L 12/02/16 04:10 MPV 9.3 fL (9.4-12.4) L 12/02/16 04:10 ABG pO2 60 mmHg (85-104) L 12/01/16 05:50 ABG HCO3 29.9 mEQ/L (21-27) H 12/01/16 05:50 ABG Total CO2 31.3 mEq/L (20-26) H 12/01/16 05:50 ABG O2 Saturation 91 % (95-98) L 12/01/16 05:50 ABG Base Excess 4.8 mEq/L (-2.0 to 3.0) H 12/01/16 05:50 Potassium 3.2 mEq/L (3.5-4.5) L 12/02/16 04:10 BUN 6 mg/dL (7-20) L 12/02/16 04:10 Creatinine 0.55 mg/dL (0.57-1.11) L 12/02/16 04:10 POC Glucose 105 (58-89) H 11/30/16 23:27 Calcium 8.4 mg/dL (8.6-10.8) L 12/02/16 04:10 Ionized Calcium 1.08 mmol/L (1.15-1.35) L 12/02/16 04:10 Magnesium 1.5 mg/dL (1.6-2.6) L 12/02/16 04:10 AST 233 Units/L (5-34) H 11/28/16 04:25 ALT 379 Units/L (0-55) H 11/28/16 04:25 Albumin 3.3 g/dL (3.5-5.0) L 11/28/16 04:25 Globulin 3.9 g/dL (2.4-3.5) H 11/28/16 04:25 Albumin/Globulin Ratio 0.8 (1.1-2.2) L 11/28/16 04:25 Ur Specimen Adequacy See below A 11/29/16 05:17 Urine Clarity Cloudy (Clear) A 11/29/16 05:17 Ur Specific [place] 1.027 (1.010-1.025) H 11/29/16 05:17 Urine Nitrite Positive (Negative) A 11/29/16 05:17 Ur Culture Indicated? YES (NO) A 11/29/16 05:17 Hepatitis C Ab Screen Reactive (Nonreactive) H 11/28/16 09:53 - Microbiology Findings Microbiology Findings: Microbiology, Last 48 Hours 11/29/16 05:17 Urine Culture - Final Urine,Clean Catch Escherichia coli 11/29/16 03:54 Sputum Culture - Preliminary Sputum Gram Negative Coccobacilli 11/29/16 06:18 Blood Culture - Preliminary Peripheral Venipuncture No growth. 11/29/16 05:52 Blood Culture - Preliminary Peripheral Venipuncture No growth. - Clinical Findings Intake & Output: Intake & Output 12/01/16 12/01/16 12/02/16 15:59 23:59 07:59 Intake Total 100 / 100 151.2 / 151.2 100 / 100 Output Total 475 / 475 1000 / 1000 150 / 150 Balance -375 / -375 -848.8 / -848.8 -50 / -50 Weight 87.1 kg
[2016-12-02] MEDS: *HR* Heparin 5,000 UNIT/ML VIAL SQ SCH ×2 (06:42→18:20)
[2016-12-02] MEDS: Potassium Chloride Elixir 20 MEQ/15 ML UDC GTUBE PRN (06:51)
[2016-12-02] MEDS: Magnesium Sulfate 2 GM in D5% in Water 100 ML IVPB PRN (06:51)
[2016-12-02] MEDS: Nystatin SUSP 5 ML UD.LIQ PO SCH ×4 (09:16→22:08)
[2016-12-02] MEDS: Pantoprazole 40 MG VIAL IVPB SCH (09:16)
[2016-12-02] MEDS: Chlorhexidine Rinse 15 ML MOUTHWASH MM SCH (09:18)
[2016-12-02] MEDS ORDERED: Ondansetron 4 MG/2 ML VIAL IVP PRN (10:11)
[2016-12-02] MEDS ORDERED: Naloxone 0.4 MG/ML INJ IVP PRN (10:11)
[2016-12-02] MEDS ORDERED: Acetaminophen 325 MG TABLET PO PRN (10:11)
[2016-12-02] MEDS ORDERED: traMADol 50 MG TABLET PO PRN (10:11)
[2016-12-02] MEDS ORDERED: Thiamine (B-1) 100 MG, Folic Acid 1 MG in 0.9 % Sodium Chloride 50 ML IVPB SCH (16:00)
[2016-12-02] MEDS ORDERED: Magnesium Oxide 400 MG TABLET PO SCH (21:00)
[2016-12-02] MEDS: Magnesium Oxide 400 MG TABLET PO SCH (22:08)
[2016-12-03] MEDS: Ipratropium/Albuterol Neb 3 ML IH SCH ×4 (03:51→22:08)
[2016-12-03 05:53] LABS: BUN/Creatinine Ratio 18 (6-26); Blood Urea Nitrogen 11 mg/dL (7-20); Calcium 8.8 mg/dL (8.6-10.8); Carbon Dioxide 21 mEq/L (19-29); Chloride 105 mEq/L (98-109); Glucose 85 mg/dL (70-99); Magnesium 1.8 mg/dL (1.6-2.6); Osmolality,Calculated 287 (280-300); Potassium 3.4 mEq/L (3.5-4.5); Sodium 139 mEq/L (136-145); eGFR For African Americans > 60 (> 60); eGFR For Non-African Americans > 60 (> 60)
[2016-12-03] MEDS: *HR* Heparin 5,000 UNIT/ML VIAL SQ SCH ×3 (06:21→17:00)
[2016-12-03] MEDS: Nystatin SUSP 5 ML UD.LIQ PO SCH ×4 (10:38→16:50)
[2016-12-03] MEDS: Magnesium Oxide 400 MG TABLET PO SCH (10:38)
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
[2016-12-04] MEDS: Ipratropium/Albuterol Neb 3 ML IH SCH ×4 (03:24→22:02)
[2016-12-04] MEDS: Magnesium Oxide 400 MG TABLET PO SCH ×3 (03:43→21:38)
[2016-12-04] MEDS: Nystatin SUSP 5 ML UD.LIQ PO SCH ×4 (03:43→21:38)
[2016-12-04] MEDS: *HR* Heparin 5,000 UNIT/ML VIAL SQ SCH ×2 (06:04→18:28)
[2016-12-04] MEDS: Folic Acid 1 MG TABLET PO SCH ×2 (12:59→15:45)
[2016-12-04] MEDS: Thiamine (B-1) 100 MG TABLET PO SCH ×2 (13:00→15:46)
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
[2016-12-04 20:00] VITALS: BP 128/79
[2016-12-05 15:08] LABS: HCV Genotype by Sequencing 1A OR 1B
== END 2016-12-04 23:10 | DRG 812 ==
LOC: ICNU → 3ANU 12-02 11:15
PROVIDERS: ADMIT Internal Medicine; ATTEND Internal Medicine

== ENCOUNTER 2016-12-04 22:53 | Inpatient (IN) ==
[2016-12-04] MEDS ORDERED: Acetaminophen 325 MG TABLET PO PRN (23:39)
[2016-12-04] MEDS ORDERED: *HR* LORazepam 1 MG TABLET PO PRN (23:42)
[2016-12-04] MEDS ORDERED: hydrOXYzine pamoate 25 MG CAPSULE PO PRN (23:42)
[2016-12-04] MEDS ORDERED: *HR* LORazepam 2 MG/ML VIAL IM PRN (23:42)
[2016-12-04] MEDS ORDERED: Haloperidol Lactate 5 MG/ML VIAL IM PRN (23:42)
[2016-12-04] MEDS ORDERED: traZODone 50 MG TABLET PO PRN (23:42)
[2016-12-04] MEDS ORDERED: MOM Conc 10 ML UD.LIQ PO PRN (23:42)
[2016-12-04] MEDS ORDERED: Mag Hydrox/Al Hydrox/Simeth 30 ML UDC PO PRN (23:42)
[2016-12-05] MEDS: Thiamine (B-1) 100 MG TABLET PO SCH (09:17)
[2016-12-05] MEDS: levoFLOXacin 750 MG TABLET PO SCH (09:17)
[2016-12-05] MEDS: Folic Acid 1 MG TABLET PO SCH (09:18)
[2016-12-05] MEDS: Ipratropium/Albuterol Neb 3 ML IH SCH ×2 (09:20→12:21)
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
[2016-12-05] MEDS: Lithium Carbonate ER 300 MG TABLET.ER PO SCH (20:47)
[2016-12-05] MEDS: OLANZapine 10 MG TAB.RAPDIS PO SCH (20:47)
[2016-12-06] MEDS: Ipratropium/Albuterol Neb 3 ML IH SCH ×5 (00:17→21:59)
[2016-12-06] MEDS: levoFLOXacin 750 MG TABLET PO SCH (09:29)
[2016-12-06] MEDS: Folic Acid 1 MG TABLET PO SCH (09:29)
[2016-12-06] MEDS: Thiamine (B-1) 100 MG TABLET PO SCH (09:30)
[2016-12-06] MEDS: Lithium Carbonate ER 300 MG TABLET.ER PO SCH ×2 (09:30→21:50)
[2016-12-06] MEDS ORDERED: Ziprasidone injection 20 MG/ML VIAL IM ONE ×2 (11:49→20:05)
--- NOTE | 2016-12-06 18:47 | Psychiatry Progress Note ---
Date of Encounter: 12/06/16 Time of Encounter: 18:00 Subjective Interval history: Pt remains mute. She had declined all meds though was able to receive a Geodon IM shot and slept for a few hours after that. Review of Systems Psychiatric: Reports: depression, anxiety, abnormal sleep pattern, suicidal ideation, change in appetite, auditory hallucinations, confusion, memory loss, difficulty concentrating, hopelessness, irritability, mood swings, panic attacks Objective: Exam Level of alertness: Alert Patient appearance: Well-nourished, Unkempt, Bizarre, Obese Behavior: nervous, anxious, agitated, uncooperative, guarded, suspicious, fearful, distractible Psychomotor activity: Slowed Eye contact: Intense Contact Mood description: Angry, Depressed, Anxious, Labile, Irritable Affect description: congruent with mood Speech pattern: Monotone, Mumbled, Non-verbal Speech volume: Soft/Quiet Thought process: Thought Blocking, Disorganized Thought content: Yes Paranoid delusion Perceptual disturbances: Yes Auditory hallucinations Judgment: Poor Insight: Minimal Results - Vital Signs Vital Signs: Temp Pulse Resp BP 98.2 F 75 16 97/53 12/06/16 09:00 12/06/16 09:00 12/06/16 09:00 12/06/16 09:00 Assessment and Plan (1) Bipolar disorder current episode depressed Current visit: Yes Status: Acute Risks, benefits, side effects, alternatives discussed w/pt: Yes (Pt does not consent for meds.) Patient agreeable to treatment: No Qualifiers: Current episode severity: severe Psychotic features: with psychotic features Qualified Code(s): F31.5 - Bipolar disorder, current episode depressed, severe, with psychotic features Consult Discharge Plan - Plan Referrals: NO,PCP [Primary Care Provider] -
[2016-12-06] MEDS: OLANZapine 10 MG TAB.RAPDIS PO SCH (21:49)
[2016-12-07] MEDS: Ipratropium/Albuterol Neb 3 ML IH SCH ×4 (04:08→21:00)
[2016-12-07] MEDS: Thiamine (B-1) 100 MG TABLET PO SCH (08:57)
[2016-12-07] MEDS: Folic Acid 1 MG TABLET PO SCH (08:57)
[2016-12-07] MEDS: Lithium Carbonate ER 300 MG TABLET.ER PO SCH ×2 (08:57→21:00)
[2016-12-07] MEDS: levoFLOXacin 750 MG TABLET PO SCH (08:57)
--- NOTE | 2016-12-07 16:37 | Psychiatry Progress Note ---
Date of Encounter: 12/07/16 Time of Encounter: 16:25 Subjective Interval history: Pt reports that she remembers bits and pieces of her stay in the hospital. She is now eager to leave the hospital. She slept last night after getting the Geodon IM. Review of Systems Psychiatric: Reports: depression, anxiety, abnormal sleep pattern, change in appetite, auditory hallucinations, confusion, memory loss, difficulty concentrating, hopelessness, irritability, mood swings, panic attacks Objective: Exam Level of alertness: Alert Patient appearance: Well-nourished, Bizarre, Obese Behavior: nervous, anxious, agitated, uncooperative, guarded, suspicious, fearful, distractible Psychomotor activity: Slowed Eye contact: Intense Contact Mood description: Angry, Depressed, Anxious, Labile, Irritable Affect description: congruent with mood Speech pattern: Monotone, Mumbled, Non-verbal Speech volume: Soft/Quiet Thought process: Thought Blocking, Disorganized Thought content: Yes Paranoid delusion Perceptual disturbances: Yes Auditory hallucinations Judgment: Poor Insight: Minimal Results - Vital Signs Vital Signs: Temp Pulse Resp BP 97.9 F 76 16 123/71 12/07/16 08:56 12/07/16 08:56 12/07/16 08:56 12/07/16 08:56 Assessment and Plan (1) Bipolar disorder current episode depressed Current visit: Yes Status: Acute Plan: Close observation, Encourage participation in unit milieu, Group Therapy, Monitor sleep, Monitor appetite, Secure weapons, Family/Supportive other meeting Risks, benefits, side effects, alternatives discussed w/pt: Yes (Pt does not consent for meds.) Patient agreeable to treatment: No Qualifiers: Current episode severity: severe Psychotic features: with psychotic features Qualified Code(s): F31.5 - Bipolar disorder, current episode depressed, severe, with psychotic features Consult Discharge Plan - Plan Referrals: NO,PCP [Primary Care Provider] -
[2016-12-07] MEDS: OLANZapine 10 MG TAB.RAPDIS PO SCH (21:00)
[2016-12-08] MEDS: Thiamine (B-1) 100 MG TABLET PO SCH (09:48)
[2016-12-08] MEDS: Folic Acid 1 MG TABLET PO SCH (09:48)
[2016-12-08] MEDS: levoFLOXacin 750 MG TABLET PO SCH (09:49)
[2016-12-08] MEDS: Lithium Carbonate ER 300 MG TABLET.ER PO SCH (09:50)
[2016-12-08] MEDS: Ipratropium/Albuterol Neb 3 ML IH SCH ×2 (10:02→18:49)
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
[2016-12-08] MEDS: Lithium Carbonate ER 450 MG TABLET.ER PO SCH (20:58)
[2016-12-08] MEDS: OLANZapine 10 MG TAB.RAPDIS PO SCH (20:58)
[2016-12-09] MEDS: Thiamine (B-1) 100 MG TABLET PO SCH (10:58)
[2016-12-09] MEDS: Folic Acid 1 MG TABLET PO SCH (10:58)
[2016-12-09] MEDS: levoFLOXacin 750 MG TABLET PO SCH (10:58)
--- NOTE | 2016-12-09 14:03 | Psychiatry Progress Note ---
Date of Encounter: 12/09/16 Time of Encounter: 14:00 Subjective Interval history: Pt reports that she is remembring some of the things around her incident of overdose. She is very focussed on leaving the hospital. She is having frequent mood shifts and crying spells. Her sleep is getting better. Review of Systems Psychiatric: Reports: depression, anxiety, abnormal sleep pattern, change in appetite, auditory hallucinations, confusion, memory loss, difficulty concentrating, hopelessness, irritability, mood swings, panic attacks Objective: Exam Level of alertness: Alert Patient appearance: Well-nourished, Bizarre, Obese Behavior: nervous, anxious, agitated, guarded, suspicious, fearful, distractible Psychomotor activity: Slowed Eye contact: Intense Contact Mood description: Angry, Depressed, Anxious, Labile, Irritable Affect description: congruent with mood Speech pattern: Monotone, Mumbled, Non-verbal Speech volume: Soft/Quiet Thought process: Thought Blocking, Disorganized Thought content: Yes Paranoid delusion Perceptual disturbances: Yes Auditory hallucinations Judgment: Poor Insight: Minimal Results - Vital Signs Vital Signs: Temp Pulse Resp BP 98 F 87 18 120/83 12/09/16 09:00 12/09/16 09:00 12/09/16 09:00 12/09/16 09:00 Assessment and Plan (1) Bipolar disorder current episode depressed Current visit: Yes Status: Acute Plan: Close observation, Encourage participation in unit milieu, Group Therapy, Monitor sleep, Monitor appetite, Secure weapons, Family/Supportive other meeting Risks, benefits, side effects, alternatives discussed w/pt: Yes (Pt does not consent for meds.) Patient agreeable to treatment: No Qualifiers: Current episode severity: severe Psychotic features: with psychotic features Qualified Code(s): F31.5 - Bipolar disorder, current episode depressed, severe, with psychotic features Consult Discharge Plan - Plan Additional Instructions: INcrease [place] and start Dulcolax. Reassurance provided. Referrals: NO,PCP [Primary Care Provider] -
[2016-12-09] MEDS: OLANZapine 10 MG TAB.RAPDIS PO SCH (21:33)
[2016-12-09] MEDS: Lithium Carbonate ER 450 MG TABLET.ER PO SCH (21:33)
[2016-12-10] MEDS: Folic Acid 1 MG TABLET PO SCH (09:27)
[2016-12-10] MEDS: Thiamine (B-1) 100 MG TABLET PO SCH (09:27)
[2016-12-10] MEDS: levoFLOXacin 750 MG TABLET PO SCH (09:27)
--- NOTE | 2016-12-10 14:57 | Psychiatry Progress Note ---
Date of Encounter: 12/10/16 Time of Encounter: 14:30 Subjective Interval history: Patient seen for follow-up. I reviewed the notes and labs and medications.. Nursing staff reported patient is improving both continue to have episodes of confusion and needs reassurance and reorientation. She denies any problem with sleep and she is future oriented and hopeful. Her lithium dose would be increased according to the treatment plan. Review of Systems Psychiatric: Reports: depression, anxiety, abnormal sleep pattern, change in appetite, auditory hallucinations, confusion, memory loss, difficulty concentrating, hopelessness, irritability, mood swings, panic attacks Objective: Exam Patient orientation: Yes Person, Yes Time, Yes Place Level of alertness: Alert Patient appearance: Well Groomed, Well-nourished, Bizarre, Obese Behavior: cooperative, nervous, anxious, agitated, guarded, suspicious, fearful , distractible Psychomotor activity: Slowed Eye contact: Intense Contact Mood description: Depressed, Anxious, Labile, Irritable Affect description: congruent with mood Speech pattern: Delayed, Monotone, Mumbled, Difficulty finding words, Non-verbal Speech volume: Soft/Quiet Thought process: Thought Blocking, Disorganized Thought content: Yes Paranoid delusion Perceptual disturbances: Yes Auditory hallucinations Judgment: Poor Insight: Minimal Results - Vital Signs Vital Signs: Temp Pulse Resp BP 98 F 83 16 116/73 12/10/16 09:00 12/10/16 09:00 12/10/16 09:00 12/10/16 09:00 Assessment and Plan (1) Bipolar disorder current episode depressed Current visit: Yes Status: Acute Plan: Close observation, Encourage participation in unit milieu, Group Therapy, Monitor sleep, Monitor appetite, Secure weapons, Family/Supportive other meeting Additional Plan: We will increase lithium to 450 mg twice a day. Risks, benefits, side effects, alternatives discussed w/pt: Yes (Pt does not consent for meds.) Patient agreeable to treatment: No Qualifiers: Current episode severity: severe Psychotic features: with psychotic features Qualified Code(s): F31.5 - Bipolar disorder, current episode depressed, severe, with psychotic features Consult Discharge Plan - Plan Additional Instructions: INcrease [place] and start Dulcolax. Reassurance provided. Referrals: NO,PCP [Primary Care Provider] -
[2016-12-10] MEDS: OLANZapine 10 MG TAB.RAPDIS PO SCH (21:03)
[2016-12-10] MEDS: Lithium Carbonate ER 450 MG TABLET.ER PO SCH (21:03)
[2016-12-11] MEDS: Thiamine (B-1) 100 MG TABLET PO SCH (08:34)
[2016-12-11] MEDS: Folic Acid 1 MG TABLET PO SCH (08:34)
[2016-12-11] MEDS: levoFLOXacin 750 MG TABLET PO SCH (08:34)
[2016-12-11] MEDS: Lithium Carbonate ER 450 MG TABLET.ER PO SCH ×2 (08:34→21:35)
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
[2016-12-11] MEDS: OLANZapine 10 MG TAB.RAPDIS PO SCH (21:35)
[2016-12-12] MEDS: levoFLOXacin 750 MG TABLET PO SCH (09:27)
[2016-12-12] MEDS: Folic Acid 1 MG TABLET PO SCH (09:27)
[2016-12-12] MEDS: Lithium Carbonate ER 450 MG TABLET.ER PO SCH ×2 (09:27→21:26)
[2016-12-12] MEDS: Thiamine (B-1) 100 MG TABLET PO SCH (09:27)
--- NOTE | 2016-12-12 13:54 | Psychiatry Progress Note ---
Date of Encounter: 12/13/16 Time of Encounter: 14:00 Subjective Interval history: Patient is seen for follow-up. She is reported to have occasional confusion and irritability but she is clear for the most part. idea worker is working on her discharge plans and in contact with her mother who was not ready to receive the patient's today per her report. Patient is irritable and angry and wants to leave and stay at a homeless senior living . the plan was to be discharged to her mother patient is showing impulsivity and irritability and poor judgment and I redirected her to have a discussion with the social work specialist to explain discharge plans that has to be safe discharge. Patient seemed to not process information appropriately. Review of Systems Psychiatric: Reports: depression, anxiety, abnormal sleep pattern, change in appetite, auditory hallucinations, confusion, memory loss, difficulty concentrating, hopelessness, irritability, mood swings, panic attacks Objective: Exam Patient orientation: Yes Person, Yes Time, Yes Place Level of alertness: Alert Patient appearance: Appropriate, Well Groomed, Obese Behavior: calm, uncooperative, guarded, suspicious, other ( hostile) Psychomotor activity: Normal Eye contact: Maintains Eye Contact Mood description: Angry, Anxious, Irritable Affect description: congruent with mood, labile Speech pattern: Normal rate, Normal rhythm, Normal tone, Disorganized Speech volume: Normal Thought process: Linear, Goal Oriented Thought content: No Suicidal ideation, No Homicidal ideation, No Overt delusions Perceptual disturbances: No Auditory hallucinations, No Visual hallucinations Judgment: Fair Insight: Partial Results - Vital Signs Vital Signs: Temp Pulse Resp BP 98.4 F 79 16 109/73 12/11/16 21:00 12/11/16 21:00 12/11/16 21:00 12/11/16 21:00 - Drug Levels and Toxicology Drug Levels and Toxicology: Drug Levels and Toxicity 12/11/16 14:19 [place] 0.5 L - Labs Labs: Laboratory Results - last 24 hr 12/11/16 14:19 [place] 0.5 L Assessment and Plan (1) Bipolar disorder current episode depressed Current visit: Yes Status: Acute Plan: Continue hospitalization, Close observation, Suicide Precautions per unit protocol, Encourage participation in unit milieu, Group Therapy, Monitor sleep, Monitor appetite Risks, benefits, side effects, alternatives discussed w/pt: Yes (Pt does not consent for meds.) Patient agreeable to treatment: No Qualifiers: Current episode severity: severe Psychotic features: with psychotic features Qualified Code(s): F31.5 - Bipolar disorder, current episode depressed, severe, with psychotic features Consult Discharge Plan - Plan Referrals: Alyce Griffiths [Other] (You may resume groups, Saturday through Saturday, from 8:30 - 4 :00pm, as soon as you are discharged. You may also have the next residential bed that opens up.) [facility] [Outside] (The above appointment is with psychiatric prescriber, Please arrive 15 minutes early for this appointment to complete paperwork. You may contact the office regularly to check for cancellations that may allow you to be seen sooner by the psychiatric prescriber. Office staff will contact you directly to schedule your intake appointment for counseling and case management services. ) Matthew Oneal, PAC [Physician [employer] Supervisor] - 01/02/17 10:00 am (The above appointment is with Matthew Oneal at [facility]. This appointment is to establish you with a primary care provider. Your needs for psychiatric medication and/or Vivitrol will be assessed for and treated as well. Please arrive 15 minutes early to complete paperwork. Please bring your insurance card, photo ID and list of current medications to your first appointment.)
[2016-12-12] MEDS: OLANZapine 10 MG TAB.RAPDIS PO SCH (21:26)
[2016-12-13 09:05] VITALS: BP 114/73
[2016-12-13] MEDS: Folic Acid 1 MG TABLET PO SCH (09:07)
[2016-12-13] MEDS: Lithium Carbonate ER 450 MG TABLET.ER PO SCH (09:07)
[2016-12-13] MEDS: Thiamine (B-1) 100 MG TABLET PO SCH (09:07)
[2016-12-13] MEDS: levoFLOXacin 750 MG TABLET PO SCH (09:07)
--- NOTE | 2016-12-13 11:25 | Discharge Summary ---
Date of Encounter: 12/13/16 Time of Encounter: 11:15 Diagnosis - Discharge Diagnosis (1) Bipolar disorder current episode depressed Status: Acute Qualifiers: Current episode severity: severe Psychotic features: with psychotic features Qualified Code(s): F31.5 - Bipolar disorder, current episode depressed, severe, with psychotic features (2) Drug overdose Status: Acute Qualifiers: Encounter type: subsequent encounter Injury intent: undetermined intent Qualified Code(s): T50.904D - Poisoning by unspecified drugs, medicaments and biological substances, undetermined, subsequent encounter Medications - Discharge Medications Prescriptions: [facility]idian Carbonate ER [Eskalith] 450 mg PO BID #30 tablet.er OLANZapine [Zyprexa Zydis] 10 mg PO HS #30 tab.rapdis Sertraline [Zoloft] 50 mg PO DAILY #30 tablet Acetaminophen [Tylenol] 325 mg PO Q6HR PRN #0 tablet 12/04/16 [Rx] Folic Acid 1 mg PO DAILY tablet 12/04/16 [Rx] Ipratropium/Albuterol Neb [Duoneb] 3 ml IH [id number] inhsol 12/04/16 [Rx] Levofloxacin [Levaquin] 750 mg PO DAILY #5 tablet 12/04/16 [Rx] Thiamine (B-1) [Vitamin B-1] 100 mg PO DAILY tablet 12/04/16 [Rx] Meridian Carbonate ER [Eskalith] 450 mg PO BID #30 tablet.er 12/13/16 [Rx] OLANZapine [Zyprexa Zydis] 10 mg PO HS #30 tab.rapdis 12/13/16 [Rx] Sertraline [Zoloft] 50 mg PO DAILY #30 tablet 12/13/16 [Rx] Allergies ibuprofen Allergy (Unknown, Verified 11/28/16 01:45) Unknown acetaminophen [From Darvocet-N] Allergy (Verified 11/28/16 01:45) Unknown aspirin [ASA] Allergy (Verified 11/28/16 01:44) unknown propoxyphene [From Darvocet-N] Allergy (Verified 11/28/16 01:45) Unknown Results Procedures and tests throughout hospitalization: Completed Lab Orders Category Date Time Status [facility] Routine Lab 12/08/16 08:28 Completed [facility] Rout[facility] 12/11/16 14:19 Completed Provider Date of admission: 12/04/16 22:53 Primary care physician: PCP NO Discharging clinician: Sabas Dumont Assessment and Plan - Patient/Caregiver Discharge Instructions Activity: resume usual activities as tolerated Diet: regular diet - Follow up Plan Follow up with: Alyce Griffiths [Other] - 12/13/16 (You are going into residental care at [facility]. ) [facility] [Outside] - 01/29/17 9:00 am (The above appointment is with psychiatric prescriber, Qian Munoz. Please arrive 30 minutes early for this appointment to complete paperwork. ) Matthew Oneal PAC [Physician [facility]] - 01/02/17 10:00 am (The above appointment is with Matthew Oneal at [facility]. This appointment is to establish you with a primary care provider. Your needs for psychiatric medication and/or Vivitrol will be assessed for and treated as well. Please arrive 15 minutes early to complete paperwork. Please bring your insurance card, photo ID and list of current medications to your first appointment.) Functional capacity at discharge: independent ambulation Overall status at discharge: Stable Disposition: Home, Self-Care Hospital Course Hospital course: Ms. Fournier is a 21 year old female admitted from ICU for psychiatric treatment and stabilization after a serious overdose on opiates and muscle relaxant. For details circumstances admission please see H&P On the unit the patient initially was having significant confusion and paranoid behavior she needed redirection. Orientation. Gradually she was showing improvements in her mental status was clearing, day by day and she was not suspicious or paranoid. She also demonstrated thought block , irritability and agitation at times. Patient also was forgetful of information and activities that she attended. She tolerated medication without reporting any side effects. Her discharge plans were updated and completed by the social problems specialist who shared the plans with the patient's and mother. Prior to discharge patient was medically stable, her mental status was clear, she was alert and oriented 3 spheres and denied any suicidal ideation and did not present any paranoid delusion. She was aware of the discharge plans and the need to continue her medication and follow-up. And stay away from drugs. - Time Spent with Patient Total time spent providing and/or coordinating discharge services: Less than 30 minutes Quality - Multiple Antipsychotics Patient discharged on 2 or more antipsychotic medications: No Procedures - Procedures Procedures: Medication Management, Crisis Stabilization, Supportive Therapy, Group Therapy, Psychoeducational Therapy Mental Status Exam - Mental Status Exam Patient orientation: Yes Person, Yes Time, Yes Place Level of alertness: Alert Patient appearance: Appropriate, Well Groomed Behavior: calm, cooperative, anxious Psychomotor activity: Normal Eye contact: Maintains Eye Contact Mood description: Euthymic/stable Affect description: congruent with mood, euthymic Speech pattern: Normal rate, Normal rhythm, Normal tone Speech Volume: Normal Thought process: Linear, Goal Oriented Thought Content: No Suicidal ideation, No Homicidal ideation, No Overt delusions Perceptual Disturbances: No Auditory hallucinations, No Visual hallucinations Judgment: Limited Insight: Partial
== END 2016-12-13 14:40 | disposition home or self-care (01) | DRG 753 ==
LOC: 1ANU 22:53 → SUATTDRO 22:53 → 1ANU 12-12 20:16
PROVIDERS: ADMIT Psychiatry & Neurology Psychiatry; ATTEND Psychiatry & Neurology Psychiatry

== ENCOUNTER 2017-01-20 00:05 | Inpatient (IN) ==
[2017-01-20 00:49] LABS: Bilirubin,Urine Negative (Negative); Blood,Urine Negative (Negative); Clarity,Urine Cloudy (Clear); Color,Urine Yellow (Yellow); Glucose,Urine (UA) Normal (Normal); Ketones,Urine Negative (Negative); Leukocyte Esterase,Urine Negative (Negative); Nitrite,Urine Negative (Negative); Protein,Urine Negative (Neg-Trace); Specific Gravity,Urine 1.012 (1.010-1.025); Urobilinogen,Urine Normal (Normal)
[2017-01-20 00:50] LABS: Bacteria,Urine Few per hpf (None-Few); Hyaline Casts,Urine None Seen per lpf (None-Few); RBC,Urine 0-3 per hpf (0-3); Squamous Epithelial Cell,Urine Many per lpf (None-Few)
[2017-01-20 00:56] LABS: Amphetamine Screen,Urine Negative ng/mL (Cutoff=1000); Barbiturate Screen,Urine Negative ng/mL (Cutoff=200); Benzodiazepines Screen,Urine Negative ng/mL (Cutoff=200); Cannabinoid Screen,Urine Positive ng/mL (Cutoff = 50); Cocaine Screen,Urine Negative ng/mL (Cutoff= 300); Opiate Screen,Urine Negative ng/mL (Cutoff=300); Phencyclidine Screen,Urine Negative ng/mL (Cutoff=25)
[2017-01-20 00:59] LABS: Basophils % 0.6 %; Eosinophils # 0.2 K/mcL (0.0-0.6); Eosinophils % 2.5 %; Hematocrit 40.7 % (35.3-44.9); Hemoglobin 13.4 g/dL (11.5-15.4); Immature Granulocytes % 0.3 % (0-4); Lymphocytes # 3.1 K/mcL (0.6-4.6); Lymphocytes % 44.7 %; Mean Corpuscular HGB Conc 32.9 g/dL (31.6-35.5); Mean Corpuscular Hemoglobin 31.5 pg (28.0-33.3); Mean Corpuscular Volume 95.5 fL (83.0-100.0); Mean Platelet Volume 9.7 fL (9.4-12.4); Monocytes # 0.4 K/mcL (0.0-1.3); Monocytes % 5.3 %; Neutrophils # 3.2 K/mcL (1.6-8.9); Platelet Count 293 K/mcL (140-400); Red Blood Count 4.26 M/mcL (3.82-4.97); Red Cell Distribution Width 14.5 % (11.5-14.5); Segmented Neutrophils % 46.6 %
[2017-01-20 01:12] LABS: Acetaminophen < 1.0 mcg/mL (10-30); BUN/Creatinine Ratio 7 (6-26); Blood Urea Nitrogen 5 mg/dL (7-20); Carbon Dioxide 26 mEq/L (19-29); Chloride 104 mEq/L (98-109); Ethanol < 10 mg/dL (0-10); Glucose 119 mg/dL (70-99); Osmolality,Calculated 288 (280-300); Potassium 3.5 mEq/L (3.5-4.5); Salicylate < 5.0 mg/dL (15-30); Sodium 140 mEq/L (136-145); eGFR For African Americans > 60 (> 60); eGFR For Non-African Americans > 60 (> 60)
--- NOTE | 2017-01-20 01:21 | Emergency Department Note ---
Disposition Clinical Impression: Paranoia Depression Qualifiers: Depression Type: unspecified Qualified Code(s): F32.9 - Major depressive disorder, single episode, unspecified Disposition: Admitted As Inpatient Condition: Good Psych HPI - General Chief Complaint: ED Psychiatric Symptoms Stated Complaint: SI Time Seen by Provider: 01/20/17 00:17 Source: EMS Mode of arrival: ambulatory Limitations: no limitations Nursing Notes Reviewed: Yes Vital Signs Reviewed: Yes - History of Present Illness HPI Narrative: Patient has a history of suicidal ideation and previous admission for overdose. Patient has not been taking her medications which include several psychiatric medications including lithium. Patient states that she is been feeling very paranoid. He does like people are out to get her. Patient has been getting in arguments with her mother but then verbal in nature. She has been doing her best with rehabilitation facilities however she continues to get pushed back from her mother. She feels like she has no support. She stated to EMS that she had suicidal ideation. Patient states no specific suicidal ideation or plan at this time. However the patient is very evasive with questioning. Patient denies recent recreational drug use other than marijuana which she uses daily. - Related Data Home Medications Medication Instructions Recorded Confirmed Quetiapine Fumarate [Seroquel] 50 mg PO HS 12/28/16 12/28/16 Previous Rx's Medication Instructions Recorded [place] Carbonate ER [Eskalith] 450 mg PO BID #30 tablet.er 12/13/16 Sertraline [Zoloft] 50 mg PO DAILY #30 tablet 12/13/16 Allergies Allergy/AdvReac Type Severity Reaction Status Date / Time ibuprofen Allergy Unknown Unknown Verified 12/28/16 04:31 aspirin [ASA] Allergy unknown Verified 12/28/16 04:31 propoxyphene Allergy Unknown Verified 12/28/16 04:31 [From Darvocet-N] Review of Systems: CONSTITUTIONAL: No weight loss, fever, chills, weakness or fatigue. HEENT: Eyes: No visual changes. Ears, Nose, Throat: No hearing loss, difficulty talking or unable to swallow. SKIN: No rash or itching. CARDIOVASCULAR: No chest pain, chest pressure or chest discomfort. No palpitations or edema. RESPIRATORY: No shortness of breath, cough or sputum. GASTROINTESTINAL: No anorexia, nausea, vomiting or diarrhea. No abdominal pain or blood. GENITOURINARY: No burning on urination or hematuria. NEUROLOGICAL: No headache, dizziness, syncope, paralysis, ataxia, numbness or tingling in the extremities. No change in bowel or bladder control. MUSCULOSKELETAL: No muscle pain, back pain, joint pain or stiffness. Psychiatry: Paranoia, anxiety, depression All systems ED: reviewed and negative except as stated. Past Medical History - Past Medical History Medical history: Reports: asthma, thyroid disease, other Surgical history: Reports: cholecystectomy Psychiatric history: Reports: anxiety, depression, prior suicide attempt, previous psychiatric hospitalization - Social History Smoking Status: Current every day smoker Smokeless Tobacco Status: No Alcohol use: Reports: rarely Drug use: Reports: cocaine, opiates, marijuana, IVDU Physical Exam General appearance: NAD, conversant Eyes: anicteric sclerae, moist conjunctivae; no lid-lag; PERRL HENT: Atraumatic; oropharynx clear with moist mucous membranes Neck: Normal appearance; Trachea midline Chest: Symmetrical chest rise; No respiratory distress Pulmonary: Lungs clear to auscultation bilaterally Cardiac: Regular rate and rhythm Abdomen soft nontender to palpation. Extremities: No peripheral edema or extremity tenderness Skin: Normal temperature, turgor and texture; no rash, ulcers or subcutaneous nodules Psych: Flat affect, paranoid, anxious Neuro: Awake and alert - General Limitations: no limitations General appearance: alert Course - Consultations Consultation #1: 1 a evaluated at bedside and the patient will be accepted for admission. Vital Signs Temperature 97.4 F L 01/20/17 00:11 Pulse Rate 96 01/20/17 00:11 Respiratory Rate 16 01/20/17 00:11 Blood Pressure 126/77 01/20/17 00:11 O2 Sat by Pulse Oximetry 99 01/20/17 00:11 Temperature 97.0 F L 01/20/17 04:05 Pulse Rate 78 01/20/17 04:05 Respiratory Rate 14 01/20/17 04:05 Blood Pressure 108/78 01/20/17 04:05 O2 Sat by Pulse Oximetry 99 01/20/17 00:11 Oxygen Delivery Oxygen Delivery Room Air Psych - Lab Data Result diagrams: 01/20/17 00:54 01/20/17 00:54 Lab Results 01/20/17 01/20/17 01/20/17 Range/Units 00:15 00:15 00:54 WBC 6.8 (4.3-11.1) K/mcL RBC 4.26 (3.82-4.97) M/mcL Hgb 13.4 (11.5-15.4) g/dL Hct 40.7 (35.3-44.9) % MCV 95.5 (83.0-100.0) fL MCH 31.5 (28.0-33.3) pg MCHC 32.9 (31.6-35.5) g/dL RDW 14.5 (11.5-14.5) % Plt Count 293 (140-400) K/mcL MPV 9.7 (9.4-12.4) fL Immature Gran % 0.3 (0-4) % Seg Neutrophils % 46.6 % Lymphocytes % 44.7 % Monocytes % 5.3 % Eosinophils % 2.5 % Basophils % 0.6 % Neutrophils # 3.2 (1.6-8.9) K/mcL Lymphocytes # 3.1 (0.6-4.6) K/mcL Monocytes # 0.4 (0.0-1.3) K/mcL Eosinophils # 0.2 (0.0-0.6) K/mcL Basophils # 0.0 (0.0-0.2) K/mcL Sodium (136-145) mEq/L Potassium (3.5-4.5) mEq/L Chloride (98-109) mEq/L Carbon Dioxide (19-29) mEq/L BUN (7-20) mg/dL Creatinine (0.57-1.11) mg/dL Est GFR ( Amer) (> 60) Est GFR (Non-Af Amer) (> 60) BUN/Creatinine Ratio (6-26) Glucose (70-99) mg/dL Calculated Osmolality (280-300) Calcium (8.6-10.8) mg/dL Urine Color Yellow (Yellow) Urine Clarity Cloudy A (Clear) Urine pH 6.0 (5.0-8.0) pH Units Ur Specific [place] 1.012 (1.010-1.025) Urine Protein Negative (Neg-Trace) mg/dL Urine Glucose (UA) Normal (Normal) mg/dL Urine Ketones Negative (Negative) mg/dL Urine Blood Negative (Negative) Urine Nitrite Negative (Negative) Urine Bilirubin Negative (Negative) Urine Urobilinogen Normal (Normal) mg/dL Ur Leukocyte Esterase Negative (Negative) Urine Microscopic RBC 0-3 (0-3) per hpf Urine Microscopic WBC 3-5 H (0-3) per hpf Ur Squamous Epith Cells Many H (None-Few) per lpf Urine Bacteria Few (None-Few) per hpf Hyaline Casts None Seen (None-Few) per lpf Salicylates (15-30) mg/dL Urine Opiates Screen Negative (Xgmixf=587) ng/mL Acetaminophen (10-30) mcg/mL Ur Barbiturates Screen Negative (Jhrzpj=166) ng/mL Ur Phencyclidine Scrn Negative (Cutoff=25) ng/mL Ur Amphetamines Screen Negative (Fyvffg=0827) ng/mL U Benzodiazepines Scrn Negative (Dnwgme=752) ng/mL Urine Cocaine Screen Negative (Cutoff= 300) ng/mL U Marijuana (THC) Screen Positive H (Cutoff = 50) ng/mL Ethyl Alcohol (0-10) mg/dL 01/20/17 Range/Units 00:54 WBC (4.3-11.1) K/mcL RBC (3.82-4.97) M/mcL Hgb (11.5-15.4) g/dL Hct (35.3-44.9) % MCV (83.0-100.0) fL MCH (28.0-33.3) pg MCHC (31.6-35.5) g/dL RDW (11.5-14.5) % Plt Count (140-400) K/mcL MPV (9.4-12.4) fL Immature Gran % (0-4) % Seg Neutrophils % % Lymphocytes % % Monocytes % % Eosinophils % % Basophils % % Neutrophils # (1.6-8.9) K/mcL Lymphocytes # (0.6-4.6) K/mcL Monocytes # (0.0-1.3) K/mcL Eosinophils # (0.0-0.6) K/mcL Basophils # (0.0-0.2) K/mcL Sodium 140 (136-145) mEq/L Potassium 3.5 (3.5-4.5) mEq/L Chloride 104 (98-109) mEq/L Carbon Dioxide 26 (19-29) mEq/L BUN 5 L (7-20) mg/dL Creatinine 0.74 (0.57-1.11) mg/dL Est GFR ( Amer) > 60 (> 60) Est GFR (Non-Af Amer) > 60 (> 60) BUN/Creatinine Ratio 7 (6-26) Glucose 119 H (70-99) mg/dL Calculated Osmolality 288 (280-300) Calcium 9.0 (8.6-10.8) mg/dL Urine Color (Yellow) Urine Clarity (Clear) Urine pH (5.0-8.0) pH Units Ur Specific [place] (1.010-1.025) Urine Protein (Neg-Trace) mg/dL Urine Glucose (UA) (Normal) mg/dL Urine Ketones (Negative) mg/dL Urine Blood (Negative) Urine Nitrite (Negative) Urine Bilirubin (Negative) Urine Urobilinogen (Normal) mg/dL Ur Leukocyte Esterase (Negative) Urine Microscopic RBC (0-3) per hpf Urine Microscopic WBC (0-3) per hpf Ur Squamous Epith Cells (None-Few) per lpf Urine Bacteria (None-Few) per hpf Hyaline Casts (None-Few) per lpf Salicylates < 5.0 L (15-30) mg/dL Urine Opiates Screen (Hcsqoo=180) ng/mL Acetaminophen < 1.0 L (10-30) mcg/mL Ur Barbiturates Screen (Msyyjz=161) ng/mL Ur Phencyclidine Scrn (Cutoff=25) ng/mL Ur Amphetamines Screen (Yjisnk=5317) ng/mL U Benzodiazepines Scrn (Gdrknr=887) ng/mL Urine Cocaine Screen (Cutoff= 300) ng/mL U Marijuana (THC) Screen (Cutoff = 50) ng/mL Ethyl Alcohol < 10 (0-10) mg/dL Psychiatric Medical Clearance - Medical Clearance Checklist Medical History: No Social History Section defined Current Vitals: Last Vital Signs Temp 97.0 F L 01/20/17 04:05 Pulse 78 01/20/17 04:05 Resp 14 01/20/17 04:05 BP 108/78 01/20/17 04:05 Pulse Ox 99 01/20/17 00:11 Psychiatric Lab Panel: Drug Levels and Toxicity 01/20/17 01/20/17 00:15 00:54 Urine Opiates Screen Negative Acetaminophen < 1.0 L Ur Barbiturates Screen Negative Ur Phencyclidine Scrn Negative Ur Amphetamines Screen Negative U Benzodiazepines Scrn Negative Urine Cocaine Screen Negative U Marijuana (THC) Screen Positive H Ethyl Alcohol < 10 Abnormal Labs: Abnormal lab results BUN 5 mg/dL (7-20) L 01/20/17 00:54 Glucose 119 mg/dL (70-99) H 01/20/17 00:54 Urine Clarity Cloudy (Clear) A 01/20/17 00:15 Urine Microscopic WBC 3-5 per hpf (0-3) H 01/20/17 00:15 Ur Squamous Epith Cells Many per lpf (None-Few) H 01/20/17 00:15 Salicylates < 5.0 mg/dL (15-30) L 01/20/17 00:54 Acetaminophen < 1.0 mcg/mL (10-30) L 01/20/17 00:54 U Marijuana (THC) Screen Positive ng/mL (Cutoff = 50) H 01/20/17 00:15 Statement of Medical Clearance: I have evaluated the patient, reviewed diagnostic information, and certify that the patient's medical condition is sufficiently stable that transfer to the psychiatric unit does not pose a significant risk of deterioration. Attestation Statement - Attestation Attestation: I, Dani Shaffer MD, personally evaluated this patient and discussed their management with the resident physician. I reviewed the resident's note and agree with the documented findings, medical decision making, and plan of care. 21-year-old female presents to the emergency department complaining of some anxiety and depression with paranoia. She admits to some intermittent suicidal ideation but has no plan. On examination patient is a well-developed well-nourished well-appearing young female in no acute distress. She is alert and oriented 3. There is no cyanosis or diaphoresis. Breath sounds are clear and equal bilaterally. Heart regular rate and rhythm. Abdomen soft and nontender with normal bowel sounds. No gross focal neurological deficits. Labs reviewed. 1A psychiatry service consulted and evaluated patient in the emergency department. They currently have no beds available in the psychiatric unit but are going to go ahead and admit the patient to their unit and keep her in their quiet room until morning when they can shuffle some patients around.
[2017-01-20] MEDS ORDERED: Mag Hydrox/Al Hydrox/Simeth 30 ML UDC PO PRN (03:41)
[2017-01-20] MEDS ORDERED: Haloperidol Lactate 5 MG/ML VIAL IM PRN (03:41)
[2017-01-20] MEDS ORDERED: hydrOXYzine pamoate 25 MG CAPSULE PO PRN (03:41)
[2017-01-20] MEDS ORDERED: Acetaminophen 325 MG TABLET PO PRN (03:41)
[2017-01-20] MEDS ORDERED: MOM Conc 10 ML UD.LIQ PO PRN (03:41)
[2017-01-20] MEDS ORDERED: *HR* LORazepam 1 MG TABLET PO PRN (03:41)
[2017-01-20] MEDS ORDERED: *HR* LORazepam 2 MG/ML VIAL IM PRN (03:41)
--- NOTE | 2017-01-20 12:01 | Psychiatry History & Physical ---
Date of Encounter: 01/20/17 Time of Encounter: 12:00 History of Present Illness Patient Stated Chief Complaint: "I feel crazy." Medicare Admission Attestation: For traditional Medicare patients the provided hospital inpatient services are reasonable and necessary and in the case of services not specified as inpatient -only under 42 CFR 419.22 (n), that they are appropriately provided as inpatient services in accordance 42 CFR 412.3. For Critical Access Hospital the patient may reasonably be expected to be discharged or transferred to a hospital within 96 hours after admission to the Critical Access Hospital. Admitted From: Emergency Dept Plans for Post Hospital Care: Home History of Present Illness: Ms. Fournier is a 21 year old female with a history of bipolar disorder, anxiety, opiate dependence, personality disorder who [facility] via EMS from the police department after voicing suicidal ideations. Patient was intentionally vague and not answering questions appropriately during initial evaluation. Today she reports paranoia and a vague feeling that people are out to get her. She thinks her medications need to be adjusted but states she has not been taking the lithium and Zyprexa combination she was discharged on. She does state that she has a appointment for vivitrol shot next week. She has not used heroin in several weeks. She does admit to daily marijuana use. Patient reports severe depression and mood swings and irritability. She does report intermittent suicidal ideations. Patient states that she does feel that her whole family will be better off without her and that she makes her parents lives worse because she is around. She has been kicked out of her mother's house and states that she is currently homeless. She denies auditory or visual hallucinations. Past Med Surg Social Fam HX - Past Medical History Medical history: asthma, thyroid disease, other - Past Psychiatric History Psychiatric history: Reports: prior suicide attempt, previous psychiatric hospitalization Past psychiatric history details: Long standing history of deprsssion and poor coping. Multiple psychiatric admissions. Patient reports previous suicide attempts but does not want to go into detail as to what she did to hurt herself. One previous admission to last month. Family psychiatric history: Yes Family Psychiatric History Details: not sure. Family History of Suicide: Attempted (cousin killed himself.) - Past Surgical History Surgical History: cholecystectomy - Social History Smoking Status: Current every day smoker Smokeless Tobacco Status: No Alcohol use: rarely Drug use: cocaine, opiates, marijuana, IVDU - Family History Mother Living Status: Still Living Hx Family Cardiac Disorders: No Hx Family Respiratory Disorders: No Hx Family GI Disorders: No Father Living Status: Still Living Hx Family GI Disorders: Yes (cirrhosis) Medications & Allergies [place] Carbonate ER [Eskalith] 450 mg PO BID #30 tablet.er 12/13/16 [Rx] Sertraline [Zoloft] 50 mg PO DAILY #30 tablet 12/13/16 [Rx] Quetiapine Fumarate [Seroquel] 50 mg PO HS 12/28/16 [History] Allergies ibuprofen Allergy (Unknown, Verified 12/28/16 04:31) Unknown aspirin [ASA] Allergy (Verified 12/28/16 04:31) unknown propoxyphene [From Darvocet-N] Allergy (Verified 12/28/16 04:31) Unknown Review of Systems Constitutional: Denies: fever, chills, weakness, weight change Eyes: Denies: eye pain, vision change Ears, Nose, Throat: Denies: ear pain, throat pain, dental pain, hearing loss, congestion Cardiovascular: Denies: chest pain, palpitations, dyspnea on exertion Respiratory: Denies: cough, dyspnea, wheezes Gastrointestinal: Denies: abdominal pain, nausea, vomiting, diarrhea, constipation Genitourinary male: Denies: urgency, dysuria, frequency, genital lesions Genitourinary female: Denies: urgency, dysuria, frequency, abnormal menses, dyspareunia Musculoskeletal: Denies: joint swelling, joint pain Integumentary: Denies: rash, lesions, pruritus Neurological: Reports: headache. Denies: weakness, numbness, memory loss Psychiatric: Reports: depression, anxiety, abnormal sleep pattern, suicidal ideation, hopelessness, irritability, mood swings Endocrine: Denies: fatigue, heat or cold intolerance Hematologic/Lymphatic: Denies: easy bruising, lymphadenopathy Allergic/Immunologic: Denies: urticaria, itchy eyes Mental Status Exam Patient orientation: Yes Person, Yes Time, Yes Place Level of alertness: Alert Patient appearance: Unkempt Behavior: uncooperative, guarded Psychomotor activity: Normal Eye contact: Fleeting Contact Mood description: Depressed, Irritable Affect description: flat Speech pattern: Normal rate, Normal rhythm, Normal tone Speech volume: Normal Thought process: Intact Thought content: Yes Suicidal ideation, Yes Paranoid delusion Perceptual disturbances: No Auditory hallucinations, No Visual hallucinations Attention span: Capable of Focused Attention Memory description: Grossly Intact Patient reliability: Questionable Historian Intelligence estimate: Average Judgment: Limited Insight: Minimal Exam - HEENT Head exam IM: Present: atraumatic Eye exam IM: Present: EOMI ENT exam IM: Present: normal exam - Neurological Neurological exam IM: Present: CN II-XII intact - Extremities Extremities exam IM: Present: full ROM, warm - Skin Skin exam IM: Present: dry, warm Results - Vital Signs Vital signs: Temp Pulse Resp BP Pulse Ox 97.0 F L 78 14 108/78 99 01/20/17 04:05 01/20/17 04:05 01/20/17 04:05 01/20/17 04:05 01/20/17 00:11 - Labs Labs: Laboratory Last Values WBC 6.8 K/mcL (4.3-11.1) 01/20/17 00:54 RBC 4.26 M/mcL (3.82-4.97) 01/20/17 00:54 Hgb 13.4 g/dL (11.5-15.4) 01/20/17 00:54 Hct 40.7 % (35.3-44.9) 01/20/17 00:54 MCV 95.5 fL (83.0-100.0) 01/20/17 00:54 MCH 31.5 pg (28.0-33.3) 01/20/17 00:54 MCHC 32.9 g/dL (31.6-35.5) 01/20/17 00:54 RDW 14.5 % (11.5-14.5) 01/20/17 00:54 Plt Count 293 K/mcL (140-400) 01/20/17 00:54 MPV 9.7 fL (9.4-12.4) 01/20/17 00:54 Immature Gran % 0.3 % (0-4) 01/20/17 00:54 Seg Neutrophils % 46.6 % 01/20/17 00:54 Lymphocytes % 44.7 % 01/20/17 00:54 Monocytes % 5.3 % 01/20/17 00:54 Eosinophils % 2.5 % 01/20/17 00:54 Basophils % 0.6 % 01/20/17 00:54 Neutrophils # 3.2 K/mcL (1.6-8.9) 01/20/17 00:54 Lymphocytes # 3.1 K/mcL (0.6-4.6) 01/20/17 00:54 Monocytes # 0.4 K/mcL (0.0-1.3) 01/20/17 00:54 Eosinophils # 0.2 K/mcL (0.0-0.6) 01/20/17 00:54 Basophils # 0.0 K/mcL (0.0-0.2) 01/20/17 00:54 Sodium 140 mEq/L (136-145) 01/20/17 00:54 Potassium 3.5 mEq/L (3.5-4.5) 01/20/17 00:54 Chloride 104 mEq/L (98-109) 01/20/17 00:54 Carbon Dioxide 26 mEq/L (19-29) 01/20/17 00:54 BUN 5 mg/dL (7-20) L 01/20/17 00:54 Creatinine 0.74 mg/dL (0.57-1.11) 01/20/17 00:54 Est GFR ( Amer) > 60 (> 60) 01/20/17 00:54 Est GFR (Non-Af Amer) > 60 (> 60) 01/20/17 00:54 BUN/Creatinine Ratio 7 (6-26) 01/20/17 00:54 Glucose 119 mg/dL (70-99) H 01/20/17 00:54 Calculated Osmolality 288 (280-300) 01/20/17 00:54 Calcium 9.0 mg/dL (8.6-10.8) 01/20/17 00:54 Urine Color Yellow (Yellow) 01/20/17 00:15 Urine Clarity Cloudy (Clear) A 01/20/17 00:15 Urine pH 6.0 pH Units (5.0-8.0) 01/20/17 00:15 Ur Specific [place] 1.012 (1.010-1.025) 01/20/17 00:15 Urine Protein Negative mg/dL (Neg-Trace) 01/20/17 00:15 Urine Glucose (UA) Normal mg/dL (Normal) 01/20/17 00:15 Urine Ketones Negative mg/dL (Negative) 01/20/17 00:15 Urine Blood Negative (Negative) 01/20/17 00:15 Urine Nitrite Negative (Negative) 01/20/17 00:15 Urine Bilirubin Negative (Negative) 01/20/17 00:15 Urine Urobilinogen Normal mg/dL (Normal) 01/20/17 00:15 Ur Leukocyte Esterase Negative (Negative) 01/20/17 00:15 Urine Microscopic RBC 0-3 per hpf (0-3) 01/20/17 00:15 Urine Microscopic WBC 3-5 per hpf (0-3) H 01/20/17 00:15 Ur Squamous Epith Cells Many per lpf (None-Few) H 01/20/17 00:15 Urine Bacteria Few per hpf (None-Few) 01/20/17 00:15 Hyaline Casts None Seen per lpf (None-Few) 01/20/17 00:15 Salicylates < 5.0 mg/dL (15-30) L 01/20/17 00:54 Urine Opiates Screen Negative ng/mL (Gvwyry=010) 01/20/17 00:15 Acetaminophen < 1.0 mcg/mL (10-30) L 01/20/17 00:54 Ur Barbiturates Screen Negative ng/mL (Cydcxv=419) 01/20/17 00:15 Ur Phencyclidine Scrn Negative ng/mL (Cutoff=25) 01/20/17 00:15 Ur Amphetamines Screen Negative ng/mL (Fadsdd=7511) 01/20/17 00:15 U Benzodiazepines Scrn Negative ng/mL (Ojigpe=025) 01/20/17 00:15 Urine Cocaine Screen Negative ng/mL (Cutoff= 300) 01/20/17 00:15 U Marijuana (THC) Screen Positive ng/mL (Cutoff = 50) H 01/20/17 00:15 Ethyl Alcohol < 10 mg/dL (0-10) 01/20/17 00:54 Assessment and Plan (1) Bipolar disorder current episode depressed Current visit: No Status: Acute Plan: Admit inpatient for safety and stabilization, Close observation, Suicide Precautions per unit protocol, Encourage participation in unit milieu, Group Therapy, Monitor sleep, Monitor appetite Additional Plan: Admit to 1A for psychiatric stabilization. Patient is currently not taking any psychiatric meds and has a long-standing history of session with poor coping strategies and multiple suicide attempts. We will start Latuda 20 mg by mouth daily. Encourage appropriate sleep hygiene and to participate in group and unit activities. Risks, benefits, side effects, alternatives discussed w/pt: Yes Patient agreeable to treatment: Yes Plans for Post Hospital Care: Home Estimated Length of Stay (Days): 3 Qualifiers: Current episode severity: severe Psychotic features: with psychotic features Qualified Code(s): F31.5 - Bipolar disorder, current episode depressed, severe, with psychotic features (2) Personality disorder Current visit: Yes Status: Acute Plan: Admit inpatient for safety and stabilization, Close observation, Suicide Precautions per unit protocol, Encourage participation in unit milieu, Group Therapy, Monitor sleep, Monitor appetite Additional Plan: Patient has increased impulsivity and poor coping strategies. Encourage her to engage in outpatient mental health treatment to minimize her mood and anxiety symptoms. (3) Cannabis abuse Current visit: Yes Status: Acute Plan: Admit inpatient for safety and stabilization, Close observation, Suicide Precautions per unit protocol, Encourage participation in unit milieu, Group Therapy, Monitor sleep, Monitor appetite Additional Plan: Recommend discontinue cannabis use. Patient also has a history of opiate dependence but is not actively using right now. Risks, benefits, side effects, alternatives discussed w/pt: Yes Patient agreeable to treatment: Yes
[2017-01-21] MEDS: Lurasidone 20 MG TABLET PO SCH (09:01)
--- NOTE | 2017-01-21 14:14 | Psychiatry Progress Note ---
Date of Encounter: 01/21/17 Time of Encounter: 14:11 Subjective Interval history: Patient is seen for follow-up. Notes and medication reviewed. Patient is concerned about being homeless and denied any suicidal ideation and she believe that she is doing well without medication and she does not need to be on medication. She is not interested in treatment. I explained to her that medication are beneficial and she has a choice to take them. Discharge plans will be discussed with treatment team tomorrow. Review of Systems Psychiatric: Reports: depression, anxiety, abnormal sleep pattern, suicidal ideation, hopelessness, irritability, mood swings Objective: Exam Patient orientation: Yes Person, Yes Time, Yes Place Level of alertness: Alert Patient appearance: Appropriate, Well Groomed, Obese Behavior: calm, cooperative, guarded Psychomotor activity: Normal Eye contact: Intense Contact Mood description: Euthymic/stable Affect description: congruent with mood, labile Speech pattern: Normal rate, Normal rhythm, Normal tone Speech volume: Normal Thought process: Linear, Goal Oriented Thought content: No Suicidal ideation, No Homicidal ideation, No Overt delusions Perceptual disturbances: No Auditory hallucinations, No Visual hallucinations Judgment: Fair Insight: Partial Results - Vital Signs Vital Signs: Temp Pulse Resp BP Pulse Ox 98.4 F 77 16 98/58 99 01/20/17 20:39 01/20/17 20:39 01/20/17 20:39 01/20/17 20:39 01/20/17 00:11 Assessment and Plan (1) Suicidal ideation Current visit: No Status: Acute Plan: Continue hospitalization, Close observation, Suicide Precautions per unit protocol, Encourage participation in unit milieu, Group Therapy, Monitor sleep, Monitor appetite Risks, benefits, side effects, alternatives discussed w/pt: Yes Patient agreeable to treatment: No Consult Discharge Plan - Plan Referrals: NO,PCP [Primary Care Provider] -
[2017-01-21] MEDS: traZODone 50 MG TABLET PO PRN (23:08)
[2017-01-22] MEDS: Lurasidone 20 MG TABLET PO SCH (08:29)
--- NOTE | 2017-01-22 16:06 | Psychiatry Progress Note ---
Date of Encounter: 01/22/17 Time of Encounter: 15:45 Subjective Interval history: Patient seen for follow-up. She is isolating himself and not participating in activities and not interested in treatment. She is focused on being homeless and looking for placement. pressroom worker trying to help patient with placement which is very challenging since patient is not allowed to return to some facilities because of her behavior. She is vague and evasive about any symptoms and does not believe she needs treatment. Review of Systems Psychiatric: Reports: depression, anxiety, abnormal sleep pattern, suicidal ideation, hopelessness, irritability, mood swings Objective: Exam Patient orientation: Yes Person, Yes Time, Yes Place Level of alertness: Alert Patient appearance: Appropriate, Well Groomed, Obese Behavior: calm, cooperative, guarded Psychomotor activity: Normal Eye contact: Maintains Eye Contact Mood description: Euthymic/stable Affect description: congruent with mood, full range Speech pattern: Normal rate, Normal rhythm, Normal tone Speech volume: Normal Thought process: Linear, Goal Oriented, Thought Blocking Thought content: No Suicidal ideation, No Homicidal ideation, No Overt delusions Perceptual disturbances: No Auditory hallucinations, No Visual hallucinations Judgment: Fair Insight: Partial Results - Vital Signs Vital Signs: Temp Pulse Resp BP Pulse Ox 97.5 F L 67 16 96/63 99 01/22/17 08:45 01/22/17 08:45 01/22/17 08:45 01/22/17 08:45 01/20/17 00:11 Assessment and Plan (1) Suicidal ideation Current visit: No Status: Acute Plan: Continue hospitalization, Close observation, Suicide Precautions per unit protocol, Encourage participation in unit milieu, Group Therapy, Monitor sleep, Monitor appetite Risks, benefits, side effects, alternatives discussed w/pt: Yes Patient agreeable to treatment: No Consult Discharge Plan - Plan Referrals: NO,PCP [Primary Care Provider] -
[2017-01-22] MEDS: traZODone 50 MG TABLET PO PRN (21:54)
[2017-01-23] MEDS: Lurasidone 20 MG TABLET PO SCH (10:04)
[2017-01-23 10:25] VITALS: BP 93/59
--- NOTE | 2017-01-23 11:18 | Discharge Summary ---
Date of Encounter: 01/23/17 Time of Encounter: 11:00 Diagnosis - Discharge Diagnosis (1) Suicidal ideation Status: Acute Medications - Discharge Medications Prescriptions: Lurasidone [Latuda] 20 mg PO DAILY #30 tablet Albuterol Sulfate [Albuterol Inhaler] 2 puff IH Q4HR PRN 01/21/17 [History] Lurasidone [Latuda] 20 mg PO DAILY #30 tablet 01/23/17 [Rx] Allergies ibuprofen Allergy (Unknown, Verified 12/28/16 04:31) Unknown aspirin [ASA] Allergy (Verified 12/28/16 04:31) unknown propoxyphene [From Darvocet-N] Allergy (Verified 12/28/16 04:31) Unknown Provider Date of admission: 01/20/17 12:20 Primary care physician: PCP NO Discharging clinician: Sabas Dumont Assessment and Plan - Patient/Caregiver Discharge Instructions Activity: resume usual activities as tolerated Diet: regular diet - Follow up Plan Follow up with: Alyce Griffiths [Other] - 01/31/17 9:30 am (You will see Christal for counseling on 03/2017 at 9:30am.) [facility] [Outside] - 01/28/17 2:00 pm (The above appointment is with Dain Villagomez for Vivitrol assessment and treatment.) [facility] [Outside] - 01/29/17 9:00 am (The above appointment is with psychiatric prescriber, Qian Munoz. Please arrive 30 minutes early for this appointment to complete paperwork. This is the first available appointment. ) Functional capacity at discharge: independent ambulation Overall status at discharge: Stable Disposition: Home, Self-Care Hospital Course Hospital course: Ms. Fournier is a 21 year old female admitted to suicidal ideation. For details admission please see H&P in chart. On the units patient was isolating herself and participate in activities minimally, she refused some of her medication and believe she did not need it, she denies suicidal ideation. She stated that her memory problem. Homeless. Social work assist the patient and give her resources for homeless shelters. Patient discharged in stable condition with follow-up plans. - Time Spent with Patient Total time spent providing and/or coordinating discharge services: Less than 30 minutes Quality - Multiple Antipsychotics Patient discharged on 2 or more antipsychotic medications: No Procedures - Procedures Procedures: Medication Management, Crisis Stabilization, Supportive Therapy, Group Therapy, Psychoeducational Therapy Mental Status Exam - Mental Status Exam Patient orientation: Yes Person, Yes Time, Yes Place Level of alertness: Alert Patient appearance: Appropriate, Well Groomed, Obese Behavior: calm, cooperative Psychomotor activity: Normal Eye contact: Maintains Eye Contact Mood description: Euthymic/stable Affect description: congruent with mood, full range Speech pattern: Normal rate, Normal rhythm, Normal tone Speech Volume: Normal Thought process: Linear, Goal Oriented Thought Content: No Suicidal ideation, No Homicidal ideation, No Overt delusions Perceptual Disturbances: No Auditory hallucinations, No Visual hallucinations Judgment: Limited Insight: Partial
== END 2017-01-23 11:55 | disposition home or self-care (01) | DRG 753 ==
LOC: EMEROO 00:05 → 1ANU 00:05 → SUATTDRO 12:20 → 1ANU 16:16
PROVIDERS: ADMIT Student in an Organized Health Care Education/Training Program; ATTEND Psychiatry & Neurology Psychiatry

== ENCOUNTER 2017-03-28 12:35 | Inpatient (IN) ==
--- NOTE | 2017-03-28 12:48 | Emergency Department Note ---
Disposition Clinical Impression: Suicidal ideation Depression Qualifiers: Depression Type: unspecified Qualified Code(s): F32.9 - Major depressive disorder, single episode, unspecified Disposition: Admitted As Inpatient Condition: Good Referrals: NONE,PCP [Primary Care Provider] - Forms: ED Satisfaction Letter Time of Disposition: 17:34 Psych HPI - General Chief Complaint: ED Psychiatric Symptoms Stated Complaint: SI Time Seen by Provider: 03/28/17 12:39 Source: patient, EMS Mode of arrival: EMS Limitations: no limitations Nursing Notes Reviewed: Yes Vital Signs Reviewed: Yes - History of Present Illness HPI Narrative: 22-year-old female with a history of bipolar disorder who has not been on medications for a long time states that she feels lost depressed and wants to just sleep her life away. Patient was recently intubated for an overdose. Pt complaint: suicidal ideation, feels depressed If medical clearance, reason: psychiatric condition Onset (ago): week(s) Duration: constant History of similar episodes: Yes Improves with: none Worsens with: none Context: significant life stressor Alleged intoxication: No Associated Psychiatric Symptoms: depression Treatments prior to arrival: none - Related Data Home Medications Medication Instructions Recorded Confirmed Albuterol Sulfate [Albuterol 2 puff IH Q4HR PRN 01/21/17 01/21/17 Inhaler] Previous Rx's Medication Instructions Recorded Lurasidone [Latuda] 20 mg PO DAILY #30 tablet 01/23/17 Allergies Allergy/AdvReac Type Severity Reaction Status Date / Time ibuprofen Allergy Unknown Unknown Verified 03/28/17 12:38 aspirin [ASA] Allergy unknown Verified 03/28/17 12:38 propoxyphene Allergy Unknown Verified 03/28/17 12:38 [From Darvocet-N] All systems ED: reviewed and negative except as stated. Constitutional: Denies: fever, chills, weakness, weight change Eyes: Denies: eye pain, eye discharge, vision change ENT ED: Denies: ear pain, throat pain, dental pain, hearing loss, epistaxis, congestion, dysphagia Cardiovascular: Denies: chest pain, palpitations, dyspnea on exertion, edema, syncope Respiratory: Denies: cough, dyspnea, wheezes, hemoptysis, stridor Gastrointestinal: Denies: abdominal pain, nausea, vomiting, diarrhea, constipation, hematemesis, melena, hematochezia Genitourinary: Denies: dysuria, frequency, hematuria, discharge Musculoskeletal: Denies: back pain, neck pain, arthralgia, myalgia Integumentary: Denies: rash, abrasion, lesions Neurological: Denies: headache, weakness, numbness, paresthesias, confusion, abnormal gait, vertigo Psychiatric: Reports: depression. Denies: anxiety, suicidal thoughts, homicidal thoughts, auditory hallucinations, visual hallucinations Endocrine: Denies: fatigue Hematological/Lymphatic: Denies: easy bleeding, easy bruising Allergic/Immunologic: Denies: facial swelling, urticaria Past Medical History - Past Medical History Medical history: Reports: asthma, hepatitis, thyroid disease, other Surgical history: Reports: cholecystectomy Psychiatric history: Reports: anxiety, bipolar, depression, prior suicide attempt, previous psychiatric hospitalization [employer] history: Reports: no [employer] history - Social History Smoking Status: Current every day smoker Smokeless Tobacco Status: No Alcohol use: Reports: rarely Drug use: Reports: cocaine, opiates, marijuana, IV Drug Use Physical Exam - General Limitations: no limitations General appearance: alert, in no apparent distress - Head Head exam: atraumatic, normocephalic, normal inspection - Eye Eye exam: Present: normal appearance, PERRL, EOMI - ENT ENT exam: normal exam, normal oropharynx, mucous membranes moist - Neck Neck exam: Present: normal inspection, full ROM, trachea midline - Chest Chest inspection: Present: normal inspection, symmetric chest wall rise - Respiratory Respiratory exam: Present: normal lung sounds bilaterally - Cardiovascular Cardiovascular exam: Present: regular rate, normal rhythm, normal heart sounds - Abdominal Exam Abdominal exam: Present: soft, Non-Tender. Absent: tenderness, distention, guarding, rebound, rigidity - Extremities Exam Extremities exam: Present: normal inspection, full ROM. Absent: tenderness, pedal edema - Expanded Lower Extremity Exam Neurovascular/Tendon exam: Absent: motor deficit, sensory deficit, tendon deficit Gait: observed and normal - Back Exam Back exam: Present: normal inspection, full ROM. Absent: tenderness - Neurological Exam Neurological exam: Present: alert, oriented X3 - Psychiatric Psychiatric exam: Present: depressed - Skin Skin exam: Present: warm, dry, intact, normal color Course - Consultations Consultation #1: and evaluated by psychiatry they will admit. Time: 17:33 Vital Signs Temperature 97.6 F 03/28/17 12:39 Pulse Rate 88 03/28/17 12:39 Respiratory Rate 20 03/28/17 12:39 Blood Pressure 119/68 03/28/17 12:39 O2 Sat by Pulse Oximetry 100 03/28/17 12:39 Temperature 97.6 F 03/28/17 12:39 Pulse Rate 85 03/28/17 12:47 Respiratory Rate 20 03/28/17 12:47 Blood Pressure 119/68 03/28/17 12:47 O2 Sat by Pulse Oximetry 100 03/28/17 12:47 Oxygen Delivery Oxygen Delivery Room Air Psych - Lab Data Result diagrams: 03/28/17 12:59 03/28/17 12:59 Lab Results 03/28/17 03/28/17 03/28/17 Range/Units 12:39 12:39 12:59 WBC 7.5 (4.3-11.1) K/mcL RBC 4.10 (3.82-4.97) M/mcL Hgb 13.0 (11.5-15.4) g/dL Hct 39.3 (35.3-44.9) % MCV 95.9 (83.0-100.0) fL MCH 31.7 (28.0-33.3) pg MCHC 33.1 (31.6-35.5) g/dL RDW 13.4 (11.5-14.5) % Plt Count 255 (140-400) K/mcL MPV 9.9 (9.4-12.4) fL Immature Gran % 0.3 (0-4) % Seg Neutrophils % 47.8 % Lymphocytes % 41.6 % Monocytes % 7.2 % Eosinophils % 2.3 % Basophils % 0.8 % Neutrophils # 3.6 (1.6-8.9) K/mcL Lymphocytes # 3.1 (0.6-4.6) K/mcL Monocytes # 0.5 (0.0-1.3) K/mcL Eosinophils # 0.2 (0.0-0.6) K/mcL Basophils # 0.1 (0.0-0.2) K/mcL Sodium (136-145) mEq/L Potassium (3.5-4.5) mEq/L Chloride (98-109) mEq/L Carbon Dioxide (19-29) mEq/L BUN (7-20) mg/dL Creatinine (0.57-1.11) mg/dL Est GFR ( Amer) (> 60) Est GFR (Non-Af Amer) (> 60) BUN/Creatinine Ratio (6-26) Glucose (70-99) mg/dL Calculated Osmolality (280-300) Calcium (8.6-10.8) mg/dL Serum , Qual (Negative) Urine Color Dark Yellow (Yellow) Urine Clarity Cloudy A (Clear) Urine pH 6.0 (5.0-8.0) pH Units Ur Specific [place] > 1.030 H (1.010-1.025) Urine Protein Negative (Neg-Trace) mg/dL Urine Glucose (UA) Normal (Normal) mg/dL Urine Ketones Trace H (Negative) mg/dL Urine Blood Negative (Negative) Urine Nitrite Negative (Negative) Urine Bilirubin Small H (Negative) Urine Urobilinogen Normal (Normal) mg/dL Ur Leukocyte Esterase Negative (Negative) Urine Microscopic RBC 0-3 (0-3) per hpf Urine Microscopic WBC 30-50 H (0-3) per hpf Ur Squamous Epith Cells Many H (None-Few) per lpf Ur Transition Epith Cell Few (None-Few) per hpf Ur Renal Epithelial Cell Few (None-Few) per hpf Calcium Oxalate Crystal Present Urine Bacteria Many H (None-Few) per hpf Hyaline Casts Test Not Performed Urine Mucus Moderate H (Few) Urine Yeast Test Not Performed Salicylates (15-30) mg/dL Urine Opiates Screen Negative (Uefyjd=777) ng/mL Acetaminophen (10-30) mcg/mL Ur Barbiturates Screen Negative (Ghtpaz=512) ng/mL Ur Phencyclidine Scrn Negative (Cutoff=25) ng/mL Ur Amphetamines Screen Negative (Kxisan=2379) ng/mL U Benzodiazepines Scrn Negative (Xecisb=045) ng/mL Urine Cocaine Screen Negative (Cutoff= 300) ng/mL U Marijuana (THC) Screen Positive H (Cutoff = 50) ng/mL Ethyl Alcohol (0-10) mg/dL 03/28/17 03/28/17 Range/Units 12:59 12:59 WBC (4.3-11.1) K/mcL RBC (3.82-4.97) M/mcL Hgb (11.5-15.4) g/dL Hct (35.3-44.9) % MCV (83.0-100.0) fL MCH (28.0-33.3) pg MCHC (31.6-35.5) g/dL RDW (11.5-14.5) % Plt Count (140-400) K/mcL MPV (9.4-12.4) fL Immature Gran % (0-4) % Seg Neutrophils % % Lymphocytes % % Monocytes % % Eosinophils % % Basophils % % Neutrophils # (1.6-8.9) K/mcL Lymphocytes # (0.6-4.6) K/mcL Monocytes # (0.0-1.3) K/mcL Eosinophils # (0.0-0.6) K/mcL Basophils # (0.0-0.2) K/mcL Sodium 137 (136-145) mEq/L Potassium 4.6 H (3.5-4.5) mEq/L Chloride 105 (98-109) mEq/L Carbon Dioxide 28 (19-29) mEq/L BUN 12 (7-20) mg/dL Creatinine 0.74 (0.57-1.11) mg/dL Est GFR ( Amer) > 60 (> 60) Est GFR (Non-Af Amer) > 60 (> 60) BUN/Creatinine Ratio 16 (6-26) Glucose 92 (70-99) mg/dL Calculated Osmolality 283 (280-300) Calcium 9.3 (8.6-10.8) mg/dL Serum , Qual Negative (Negative) Urine Color (Yellow) Urine Clarity (Clear) Urine pH (5.0-8.0) pH Units Ur Specific [place] (1.010-1.025) Urine Protein (Neg-Trace) mg/dL Urine Glucose (UA) (Normal) mg/dL Urine Ketones (Negative) mg/dL Urine Blood (Negative) Urine Nitrite (Negative) Urine Bilirubin (Negative) Urine Urobilinogen (Normal) mg/dL Ur Leukocyte Esterase (Negative) Urine Microscopic RBC (0-3) per hpf Urine Microscopic WBC (0-3) per hpf Ur Squamous Epith Cells (None-Few) per lpf Ur Transition Epith Cell (None-Few) per hpf Ur Renal Epithelial Cell (None-Few) per hpf Calcium Oxalate Crystal Urine Bacteria (None-Few) per hpf Hyaline Casts Urine Mucus (Few) Urine Yeast Salicylates < 5.0 L (15-30) mg/dL Urine Opiates Screen (Jvlaio=948) ng/mL Acetaminophen < 1.0 L (10-30) mcg/mL Ur Barbiturates Screen (Kwlhuf=836) ng/mL Ur Phencyclidine Scrn (Cutoff=25) ng/mL Ur Amphetamines Screen (Ntjdez=6266) ng/mL U Benzodiazepines Scrn (Ivytcw=169) ng/mL Urine Cocaine Screen (Cutoff= 300) ng/mL U Marijuana (THC) Screen (Cutoff = 50) ng/mL Ethyl Alcohol < 10 (0-10) mg/dL Psychiatric Medical Clearance - Medical Clearance Checklist Does the patient have a NEW psychiatric condition?: No Any abnormalities indicating possible medical illness?: No Any history of medical issues?: Yes Medical History: No Social History Section defined Any abnormal vital signs prior to transfer?: No Current Vitals: Last Vital Signs Temp 97.6 F 03/28/17 12:39 Pulse 85 03/28/17 12:47 Resp 20 03/28/17 12:47 BP 119/68 03/28/17 12:47 Pulse Ox 100 03/28/17 12:47 Is the patient intoxicated or cognitively impaired?: No Psychiatric Lab Panel: Drug Levels and Toxicity 03/28/17 03/28/17 12:39 12:59 Urine Opiates Screen Negative Acetaminophen < 1.0 L Ur Barbiturates Screen Negative Ur Phencyclidine Scrn Negative Ur Amphetamines Screen Negative U Benzodiazepines Scrn Negative Urine Cocaine Screen Negative U Marijuana (THC) Screen Positive H Ethyl Alcohol < 10 Any abnormalities on the physical exam?: Yes (BKA on the right) Any abnormal labs?: Yes (Urine) Abnormal Labs: Abnormal lab results Potassium 4.6 mEq/L (3.5-4.5) H 03/28/17 12:59 Urine Clarity Cloudy (Clear) A 03/28/17 12:39 Ur Specific [place] > 1.030 (1.010-1.025) H 03/28/17 12:39 Urine Ketones Trace mg/dL (Negative) H 03/28/17 12:39 Urine Bilirubin Small (Negative) H 03/28/17 12:39 Urine Microscopic WBC 30-50 per hpf (0-3) H 03/28/17 12:39 Ur Squamous Epith Cells Many per lpf (None-Few) H 03/28/17 12:39 Urine Bacteria Many per hpf (None-Few) H 03/28/17 12:39 Urine Mucus Moderate (Few) H 03/28/17 12:39 Salicylates < 5.0 mg/dL (15-30) L 03/28/17 12:59 Acetaminophen < 1.0 mcg/mL (10-30) L 03/28/17 12:59 U Marijuana (THC) Screen Positive ng/mL (Cutoff = 50) H 03/28/17 12:39 Does the patient require durable medical equiptment?: Yes (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
[2017-03-28 13:00] LABS: Bilirubin,Urine Small (Negative); Blood,Urine Negative (Negative); Clarity,Urine Cloudy (Clear); Color,Urine Dark Yellow (Yellow); Glucose,Urine (UA) Normal (Normal); Ketones,Urine Trace mg/dL (Negative); Leukocyte Esterase,Urine Negative (Negative); Nitrite,Urine Negative (Negative); Protein,Urine Negative (Neg-Trace); Specific Gravity,Urine > 1.030 (1.010-1.025); Urobilinogen,Urine Normal (Normal)
[2017-03-28 13:02] LABS: Bacteria,Urine Many per hpf (None-Few); RBC,Urine 0-3 per hpf (0-3); Squamous Epithelial Cell,Urine Many per lpf (None-Few); WBC,Urine 30-50 per hpf (0-3)
[2017-03-28 13:06] LABS: Amphetamine Screen,Urine Negative ng/mL (Cutoff=1000); Barbiturate Screen,Urine Negative ng/mL (Cutoff=200); Benzodiazepines Screen,Urine Negative ng/mL (Cutoff=200); Cannabinoid Screen,Urine Positive ng/mL (Cutoff = 50); Cocaine Screen,Urine Negative ng/mL (Cutoff= 300); Opiate Screen,Urine Negative ng/mL (Cutoff=300); Phencyclidine Screen,Urine Negative ng/mL (Cutoff=25)
[2017-03-28 13:09] LABS: Basophils # 0.1 K/mcL (0.0-0.2); Basophils % 0.8 %; Eosinophils # 0.2 K/mcL (0.0-0.6); Eosinophils % 2.3 %; Hematocrit 39.3 % (35.3-44.9); Immature Granulocytes % 0.3 % (0-4); Lymphocytes # 3.1 K/mcL (0.6-4.6); Lymphocytes % 41.6 %; Mean Corpuscular HGB Conc 33.1 g/dL (31.6-35.5); Mean Corpuscular Hemoglobin 31.7 pg (28.0-33.3); Mean Corpuscular Volume 95.9 fL (83.0-100.0); Mean Platelet Volume 9.9 fL (9.4-12.4); Monocytes # 0.5 K/mcL (0.0-1.3); Monocytes % 7.2 %; Neutrophils # 3.6 K/mcL (1.6-8.9); Platelet Count 255 K/mcL (140-400); Red Cell Distribution Width 13.4 % (11.5-14.5); Segmented Neutrophils % 47.8 %
[2017-03-28 13:15] LABS: Mucus,Urine Moderate (Few)
[2017-03-28 13:17] LABS: Calcium Oxalate Crystals,Urine Present; Renal Epithelial Cells,Urine Few per hpf (None-Few); Transitional Epi Cells,Urine Few per hpf (None-Few)
[2017-03-28 13:25] LABS: Acetaminophen < 1.0 mcg/mL (10-30); BUN/Creatinine Ratio 16 (6-26); Blood Urea Nitrogen 12 mg/dL (7-20); Calcium 9.3 mg/dL (8.6-10.8); Carbon Dioxide 28 mEq/L (19-29); Chloride 105 mEq/L (98-109); Ethanol < 10 mg/dL (0-10); Glucose 92 mg/dL (70-99); Osmolality,Calculated 283 (280-300); Potassium 4.6 mEq/L (3.5-4.5); Salicylate < 5.0 mg/dL (15-30); Sodium 137 mEq/L (136-145); eGFR For African Americans > 60 (> 60); eGFR For Non-African Americans > 60 (> 60)
[2017-03-28] MEDS ORDERED: Acetaminophen 325 MG TABLET PO PRN (20:11)
[2017-03-28] MEDS ORDERED: *HR* LORazepam 1 MG TABLET PO PRN (20:11)
[2017-03-28] MEDS ORDERED: *HR* LORazepam 2 MG/ML VIAL IM PRN (20:11)
[2017-03-28] MEDS ORDERED: Haloperidol Lactate 5 MG/ML VIAL IM PRN (20:11)
[2017-03-28] MEDS ORDERED: MOM Conc 10 ML UD.LIQ PO PRN (20:11)
[2017-03-28] MEDS ORDERED: Mag Hydrox/Al Hydrox/Simeth 30 ML UDC PO PRN (20:11)
[2017-03-28] MEDS: hydrOXYzine pamoate 25 MG CAPSULE PO PRN (21:09)
--- NOTE | 2017-03-29 10:29 | Psychiatry History & Physical ---
Date of Encounter: 03/29/17 Time of Encounter: 09:00 History of Present Illness Patient Stated Chief Complaint: "I am not crazy." Medicare Admission Attestation: For traditional Medicare patients the provided hospital inpatient services are reasonable and necessary and in the case of services not specified as inpatient -only under 42 CFR 419.22 (n), that they are appropriately provided as inpatient services in accordance 42 CFR 412.3. For Critical Access Hospital the patient may reasonably be expected to be discharged or transferred to a hospital within 96 hours after admission to the Critical Access Hospital. Admitted From: Emergency Dept History of Present Illness: Ms. Fournier is a 22 year old female who presented to the emergency department with increasing depression and suicidal ideation after apparent recent overdose attempt on muscle relaxants and tramadol. She was admitted to [facility] for psychiatric stabilization. Patient reports that "I am not crazy and I do not need psych meds." She is guarded, angry, labile. She denies suicidal ideations now. She does not wish to discuss previous or recent suicide attempt. She feels that psych meds other reason that her daughter got taken away. We also discussed her drug use and patient states "I know how to stay clean if I want to." She denies auditory or visual hallucinations now but was observed responding to internal stimuli with some thought blocking yesterday in the emergency room. She reports difficulty sleeping and nightmares at times. She is very angry and frustrated by her social situation because she always seems to end up back on the streets. "It is hard for me to get away from the drugs as I would have on the streets." She does not wish to discuss possible medications for her mood symptoms. Past Med Surg Social Fam HX - Past Medical History Medical history: asthma, hepatitis, thyroid disease, other - Past Psychiatric History Psychiatric history: Reports: depression, prior suicide attempt, previous psychiatric hospitalization Past psychiatric history details: Multiple admissions. Multiple attempts. Chronic substance abuse. Family psychiatric history: Unknown Family History of Suicide: Completed (cousin) - Past Surgical History Surgical History: cholecystectomy - Social History Smoking Status: Current every day smoker Smokeless Tobacco Status: No Alcohol use: rarely Drug use: cocaine, opiates, marijuana, IV Drug Use Occupational status: unemployed Current living situation: Homeless Activity Level: Independent ambulation - Family History Mother Living Status: Still Living Hx Family Cardiac Disorders: No Hx Family Respiratory Disorders: No Hx Family GI Disorders: No Father Living Status: Still Living Hx Family GI Disorders: Yes (cirrhosis) Medications & Allergies No Known Home Drugs 03/28/17 [History] Allergies ibuprofen Allergy (Unknown, Verified 03/28/17 12:38) Unknown aspirin [ASA] Allergy (Verified 03/28/17 12:38) unknown propoxyphene [From Darvocet-N] Allergy (Verified 03/28/17 12:38) Unknown Review of Systems Neurological: Reports: headache Psychiatric: Reports: depression, anxiety, abnormal sleep pattern, suicidal ideation, confusion, difficulty concentrating, hopelessness, irritability, mood swings Mental Status Exam Patient orientation: Yes Person, Yes Time, Yes Place Level of alertness: Alert Patient appearance: Unkempt Behavior: tearful, guarded, dramatic Psychomotor activity: Normal Eye contact: Intense Contact Mood description: Depressed, Labile, Irritable Affect description: congruent with mood Speech pattern: Normal rate, Normal rhythm, Normal tone Speech volume: Loud Thought process: Intact Thought content: Yes Suicidal ideation, No Homicidal ideation Perceptual disturbances: No Auditory hallucinations, No Visual hallucinations Attention span: Capable of Focused Attention Memory description: Grossly Intact Patient reliability: Questionable Historian Intelligence estimate: Average Judgment: Limited Insight: Minimal Exam - HEENT Head exam IM: Present: atraumatic - Neurological Neurological exam IM: Present: CN II-XII intact - Extremities Extremities exam IM: Present: full ROM - Skin Skin exam IM: Present: dry, warm Results - Vital Signs Vital signs: Temp Pulse Resp BP Pulse Ox 97.8 F 76 16 99/66 100 03/29/17 08:29 03/29/17 08:29 03/29/17 08:29 03/29/17 08:29 03/28/17 12:47 - Labs Labs: Laboratory Last Values WBC 7.5 K/mcL (4.3-11.1) 03/28/17 12:59 RBC 4.10 M/mcL (3.82-4.97) 03/28/17 12:59 Hgb 13.0 g/dL (11.5-15.4) 03/28/17 12:59 Hct 39.3 % (35.3-44.9) 03/28/17 12:59 MCV 95.9 fL (83.0-100.0) 03/28/17 12:59 MCH 31.7 pg (28.0-33.3) 03/28/17 12:59 MCHC 33.1 g/dL (31.6-35.5) 03/28/17 12:59 RDW 13.4 % (11.5-14.5) 03/28/17 12:59 Plt Count 255 K/mcL (140-400) 03/28/17 12:59 MPV 9.9 fL (9.4-12.4) 03/28/17 12:59 Immature Gran % 0.3 % (0-4) 03/28/17 12:59 Seg Neutrophils % 47.8 % 03/28/17 12:59 Lymphocytes % 41.6 % 03/28/17 12:59 Monocytes % 7.2 % 03/28/17 12:59 Eosinophils % 2.3 % 03/28/17 12:59 Basophils % 0.8 % 03/28/17 12:59 Neutrophils # 3.6 K/mcL (1.6-8.9) 03/28/17 12:59 Lymphocytes # 3.1 K/mcL (0.6-4.6) 03/28/17 12:59 Monocytes # 0.5 K/mcL (0.0-1.3) 03/28/17 12:59 Eosinophils # 0.2 K/mcL (0.0-0.6) 03/28/17 12:59 Basophils # 0.1 K/mcL (0.0-0.2) 03/28/17 12:59 Sodium 137 mEq/L (136-145) 03/28/17 12:59 Potassium 4.6 mEq/L (3.5-4.5) H 03/28/17 12:59 Chloride 105 mEq/L (98-109) 03/28/17 12:59 Carbon Dioxide 28 mEq/L (19-29) 03/28/17 12:59 BUN 12 mg/dL (7-20) 03/28/17 12:59 Creatinine 0.74 mg/dL (0.57-1.11) 03/28/17 12:59 Est GFR ( Amer) > 60 (> 60) 03/28/17 12:59 Est GFR (Non-Af Amer) > 60 (> 60) 03/28/17 12:59 BUN/Creatinine Ratio 16 (6-26) 03/28/17 12:59 Glucose 92 mg/dL (70-99) 03/28/17 12:59 Calculated Osmolality 283 (280-300) 03/28/17 12:59 Calcium 9.3 mg/dL (8.6-10.8) 03/28/17 12:59 Serum , Qual Negative (Negative) 03/28/17 12:59 Urine Color Dark Yellow (Yellow) 03/28/17 12:39 Urine Clarity Cloudy (Clear) A 03/28/17 12:39 Urine pH 6.0 pH Units (5.0-8.0) 03/28/17 12:39 Ur Specific [place] > 1.030 (1.010-1.025) H 03/28/17 12:39 Urine Protein Negative mg/dL (Neg-Trace) 03/28/17 12:39 Urine Glucose (UA) Normal mg/dL (Normal) 03/28/17 12:39 Urine Ketones Trace mg/dL (Negative) H 03/28/17 12:39 Urine Blood Negative (Negative) 03/28/17 12:39 Urine Nitrite Negative (Negative) 03/28/17 12:39 Urine Bilirubin Small (Negative) H 03/28/17 12:39 Urine Urobilinogen Normal mg/dL (Normal) 03/28/17 12:39 Ur Leukocyte Esterase Negative (Negative) 03/28/17 12:39 Urine Microscopic RBC 0-3 per hpf (0-3) 03/28/17 12:39 Urine Microscopic WBC 30-50 per hpf (0-3) H 03/28/17 12:39 Ur Squamous Epith Cells Many per lpf (None-Few) H 03/28/17 12:39 Ur Transition Epith Cell Few per hpf (None-Few) 03/28/17 12:39 Ur Renal Epithelial Cell Few per hpf (None-Few) 03/28/17 12:39 Calcium Oxalate Crystal Present 03/28/17 12:39 Urine Bacteria Many per hpf (None-Few) H 03/28/17 12:39 Hyaline Casts Test Not Performed 03/28/17 12:39 Urine Mucus Moderate (Few) H 03/28/17 12:39 Urine Yeast Test Not Performed 03/28/17 12:39 Salicylates < 5.0 mg/dL (15-30) L 03/28/17 12:59 Urine Opiates Screen Negative ng/mL (Wscler=534) 03/28/17 12:39 Acetaminophen < 1.0 mcg/mL (10-30) L 03/28/17 12:59 Ur Barbiturates Screen Negative ng/mL (Bfgdfl=856) 03/28/17 12:39 Ur Phencyclidine Scrn Negative ng/mL (Cutoff=25) 03/28/17 12:39 Ur Amphetamines Screen Negative ng/mL (Vvbmlu=0216) 03/28/17 12:39 U Benzodiazepines Scrn Negative ng/mL (Deetgf=356) 03/28/17 12:39 Urine Cocaine Screen Negative ng/mL (Cutoff= 300) 03/28/17 12:39 U Marijuana (THC) Screen Positive ng/mL (Cutoff = 50) H 03/28/17 12:39 Ethyl Alcohol < 10 mg/dL (0-10) 03/28/17 12:59 Assessment and Plan (1) Bipolar disorder current episode depressed Current visit: No Status: Acute Plan: Admit inpatient for safety and stabilization, Close observation, Suicide Precautions per unit protocol, Encourage participation in unit milieu, Group Therapy, Monitor sleep, Monitor appetite Additional Plan: We will admit to [facility] for psychiatric stabilization. Incorporate into therapeutic milieu, group and individual as well as recreational therapy. Start Seroquel 50 mg by mouth daily at bedtime for mood and sleep. Encourage group attendance. Risks, benefits, side effects, alternatives discussed w/pt: Yes Patient agreeable to treatment: Yes Qualifiers: Current episode severity: severe Psychotic features: with psychotic features Qualified Code(s): F31.5 - Bipolar disorder, current episode depressed, severe, with psychotic features (2) Borderline personality disorder Current visit: Yes Status: Acute Plan: Admit inpatient for safety and stabilization, Close observation, Suicide Precautions per unit protocol, Encourage participation in unit milieu, Group Therapy, Monitor sleep, Monitor appetite Additional Plan: Patient has severe relationship problems and markedly poor coping skills. Very little to no social support. Encourage group attendance. Risks, benefits, side effects, alternatives discussed w/pt: Yes Patient agreeable to treatment: Yes (3) Polysubstance abuse Current visit: Yes Status: Acute Plan: Admit inpatient for safety and stabilization, Close observation, Suicide Precautions per unit protocol, Encourage participation in unit milieu, Group Therapy, Monitor sleep, Monitor appetite Additional Plan: Discussed the importance of discontinuing drug use. Encourage positive coping strategies and potential rehabilitation on discharge. Patient has a history of use of "multiple different substances including IV drugs, cocaine. Monitor for any withdrawal symptoms. Risks, benefits, side effects, alternatives discussed w/pt: Yes Patient agreeable to treatment: Yes
[2017-03-29] MEDS: hydrOXYzine pamoate 25 MG CAPSULE PO PRN (20:25)
--- NOTE | 2017-03-30 14:58 | Psychiatry Progress Note ---
Date of Encounter: 03/30/17 Time of Encounter: 14:40 Subjective Interval history: Patient seen today for follow-up. She is very irritable and angry that she is admitted into the hospital. She does not take responsibility for the way her life is going right now. Patient does not think that she has a drug problem and she does not think she needs help with rehabilitation. "I know rehabilitation like the back of my hand I just keep find any place to stay." Patient is willing to have staff call mom. Mom reports she cannot stay with her because the patient uses drugs and mom is raising one of her own children under the age of 18 as well as the patient's 2-year-old. She did give a number of aunts that may be able to help Lanny when she leaves the hospital. Continue to encourage patient to discontinue drug use and consider rehabilitation after discharge to help with this. Review of Systems Psychiatric: Reports: depression, anxiety, confusion, difficulty concentrating, hopelessness, irritability, mood swings. Denies: suicidal ideation Objective: Exam Patient orientation: Yes Person, Yes Time, Yes Place Level of alertness: Alert Patient appearance: Unkempt Behavior: tearful, agitated, uncooperative, dramatic Psychomotor activity: Normal Eye contact: Fleeting Contact Mood description: Depressed, Anxious, Labile, Irritable Affect description: tearful, dysphoric Speech pattern: Normal rate, Normal rhythm, Normal tone Speech volume: Normal Thought process: Intact, Logical Thought content: No Suicidal ideation, No Homicidal ideation Perceptual disturbances: No Auditory hallucinations, No Visual hallucinations Judgment: Limited Insight: Minimal Results - Vital Signs Vital Signs: Temp Pulse Resp BP Pulse Ox 98.5 F 81 20 105/59 100 03/30/17 08:36 03/30/17 08:36 03/30/17 08:36 03/30/17 08:36 03/28/17 12:47 Assessment and Plan (1) Bipolar disorder current episode depressed Current visit: No Status: Acute Plan: Continue hospitalization, Close observation, Suicide Precautions per unit protocol, Encourage participation in unit milieu, Group Therapy, Monitor sleep, Monitor appetite Additional Plan: Patient willing to take Seroquel but otherwise does not want further psych meds at this time. She does appear to be sleeping well. She feels a lot of her depression is situational. We discussed the importance of taking meds as prescribed. Risks, benefits, side effects, alternatives discussed w/pt: Yes Patient agreeable to treatment: Yes Qualifiers: Current episode severity: severe Psychotic features: with psychotic features Qualified Code(s): F31.5 - Bipolar disorder, current episode depressed, severe, with psychotic features (2) Borderline personality disorder Current visit: Yes Status: Acute Plan: Continue hospitalization, Close observation, Suicide Precautions per unit protocol, Encourage participation in unit milieu, Group Therapy, Monitor sleep, Monitor appetite Additional Plan: Encourage positive coping strategies. Risks, benefits, side effects, alternatives discussed w/pt: Yes Patient agreeable to treatment: Yes (3) Polysubstance abuse Current visit: Yes Status: Acute Plan: Continue hospitalization, Close observation, Suicide Precautions per unit protocol, Encourage participation in unit milieu, Group Therapy, Monitor sleep, Monitor appetite Additional Plan: Had a lengthy discussion with patient about the role that drugs play in having issues in her life. Patient has little to no insight into how drugs are causing problems for her. She states she knows how to be sober but does not have a place to stay that allows this to happen. At this point she does not want rehabilitation. Mom's main concern is that patient continues to use drugs when she leaves the hospital and thats why she cannot stay with mom. Risks, benefits, side effects, alternatives discussed w/pt: Yes Patient agreeable to treatment: Yes Consult Discharge Plan - Plan Referrals: NONE,PCP [Primary Care Provider] -
[2017-03-30] MEDS: hydrOXYzine pamoate 25 MG CAPSULE PO PRN (21:03)
--- NOTE | 2017-03-31 12:32 | Psychiatry Progress Note ---
Date of Encounter: 03/31/17 Time of Encounter: 11:50 Subjective Interval history: Patient seen today for follow-up. Mood is slightly improved and she denies suicidal ideations. Somewhat less irritable with staff but still has some unrealistic expectations of what can be provided for her at discharge. Patient' s aunt and uncle refused to take her into their home but they are trying to coordinate possible placement to a care home or some other rehabilitation for Lanny. Patient still minimizing the need for rehabilitation and discontinuation of drug use or how big of a role this is playing in her inability to successfully navigate outside of a hospital or treatment facility. Review of Systems Psychiatric: Reports: depression, anxiety, confusion, difficulty concentrating, hopelessness, irritability, mood swings. Denies: suicidal ideation Objective: Exam Patient orientation: Yes Person, Yes Time, Yes Place Level of alertness: Alert Patient appearance: Appropriate, Well-nourished Behavior: calm, cooperative Psychomotor activity: Normal Eye contact: Maintains Eye Contact Mood description: Depressed Affect description: congruent with mood, tearful Speech pattern: Normal rate, Normal rhythm, Normal tone Speech volume: Normal Thought process: Intact, Logical, Goal Oriented Thought content: No Suicidal ideation, No Homicidal ideation Perceptual disturbances: No Auditory hallucinations, No Visual hallucinations Judgment: Limited Insight: Minimal Results - Vital Signs Vital Signs: Temp Pulse Resp BP Pulse Ox 98.6 F 85 18 105/75 100 03/31/17 09:00 03/31/17 09:00 03/31/17 09:00 03/31/17 09:00 03/28/17 12:47 Assessment and Plan (1) Bipolar disorder current episode depressed Current visit: No Status: Acute Plan: Continue hospitalization, Close observation, Suicide Precautions per unit protocol, Encourage participation in unit milieu, Group Therapy, Monitor sleep, Monitor appetite Additional Plan: Continue low-dose Seroquel for now. Patient is sleeping better. Mood slightly improved. Risks, benefits, side effects, alternatives discussed w/pt: Yes Patient agreeable to treatment: Yes Qualifiers: Current episode severity: severe Psychotic features: with psychotic features Qualified Code(s): F31.5 - Bipolar disorder, current episode depressed, severe, with psychotic features (2) Borderline personality disorder Current visit: Yes Status: Acute Plan: Continue hospitalization, Close observation, Suicide Precautions per unit protocol, Encourage participation in unit milieu, Group Therapy, Monitor sleep, Monitor appetite Additional Plan: Encourage more positive coping strategies and participation in therapeutic milieu. Risks, benefits, side effects, alternatives discussed w/pt: Yes Patient agreeable to treatment: Yes (3) Polysubstance abuse Current visit: Yes Status: Acute Plan: Continue hospitalization, Close observation, Suicide Precautions per unit protocol, Encourage participation in unit milieu, Group Therapy, Monitor sleep, Monitor appetite Additional Plan: Continue to educate patient on the role substance abuse is playing in her mental and physical health issues. Also with issues of relationships. Risks, benefits, side effects, alternatives discussed w/pt: Yes Patient agreeable to treatment: Yes Consult Discharge Plan - Plan Referrals: NONE,PCP [Primary Care Provider] -
--- NOTE | 2017-04-01 12:29 | Psychiatry Progress Note ---
Date of Encounter: 04/01/17 Time of Encounter: 12:12 Subjective Interval history: Patient seen today,case discussed with staff. she has been admitted several times, h/o suicidal attempts in past was intubated in 12/10 after suicidal attempt by OD. She came in with suicidal ideation , states i came here as i was homeless , i know what to do to stay sober but i have no home. she admitted that she feels suicidal when she thinks about her daughter. she is tearful during session and sad, she was educated about Borderline Personality AND HER SUBSTANCE USE AND COMPLIANCE IMPORTANCE. SHE is not suicidal at present and is agreeing to go in counseling and treatment. she is on prn seroquel and will start seroquel 100 mg hs. and buspar 10 mg bid. Review of Systems Psychiatric: Reports: depression, anxiety, confusion, difficulty concentrating, hopelessness, irritability, mood swings. Denies: suicidal ideation Objective: Exam Patient orientation: Yes Person, Yes Time, Yes Place Level of alertness: Alert Patient appearance: Appropriate Behavior: anxious, tearful Psychomotor activity: Normal Eye contact: Maintains Eye Contact Mood description: Anxious Affect description: tearful Speech pattern: Normal rate Speech volume: Normal Thought process: Racing Thought content: Yes Guilt Judgment: Fair Insight: Partial Results - Vital Signs Vital Signs: Temp Pulse Resp BP Pulse Ox 97.4 F L 87 16 102/60 100 04/01/17 09:00 04/01/17 09:00 04/01/17 09:00 04/01/17 09:00 03/28/17 12:47 Assessment and Plan (1) Bipolar disorder current episode depressed Current visit: No Status: Acute Plan: Continue hospitalization, Close observation, Suicide Precautions per unit protocol, Encourage participation in unit milieu, Group Therapy, Monitor sleep, Monitor appetite, Family/Supportive other meeting Risks, benefits, side effects, alternatives discussed w/pt: Yes Patient agreeable to treatment: Yes Qualifiers: Current episode severity: severe Psychotic features: with psychotic features Qualified Code(s): F31.5 - Bipolar disorder, current episode depressed, severe, with psychotic features (2) Borderline personality disorder Current visit: Yes Status: Acute Risks, benefits, side effects, alternatives discussed w/pt: Yes Patient agreeable to treatment: Yes Consult Discharge Plan - Plan Referrals: NONE,PCP [Primary Care Provider] -
[2017-04-01] MEDS: hydrOXYzine pamoate 25 MG CAPSULE PO PRN (21:30)
[2017-04-02 10:27] VITALS: BP 109/66
--- NOTE | 2017-04-02 11:03 | Psychiatry Progress Note ---
Date of Encounter: 04/02/17 Time of Encounter: 10:30 Subjective Interval history: Patient seen today , case d/w treatment team patient has declined inpatient rehab, [facility]pc and other discharge options. she has poor insight in her drug use, educated her that it is big factor in her mental illness and she is aware as per her. she denies suicidal ideation , denies depression , I feel pretty fine, has been interacting, sleep is good , states medicine is helping her anxiety . denies side effects. patient stated she will go to located within [facility] as it is remodelling , they cannot take me , she at present will be discharged today . Review of Systems Psychiatric: Reports: anxiety. Denies: suicidal ideation Objective: Exam Patient orientation: Yes Person, Yes Time, Yes Place Level of alertness: Alert Patient appearance: Appropriate Behavior: calm, cooperative Psychomotor activity: Normal Eye contact: Maintains Eye Contact Mood description: Euthymic/stable Affect description: congruent with mood Speech pattern: Normal rate Speech volume: Normal Thought process: Intact Thought content: Yes Intact Judgment: Good Insight: Partial Results - Vital Signs Vital Signs: Temp Pulse Resp BP Pulse Ox 97.8 F 75 16 109/66 100 04/02/17 09:00 04/02/17 09:00 04/02/17 09:00 04/02/17 09:00 03/28/17 12:47 Assessment and Plan (1) Bipolar disorder current episode depressed Current visit: No Status: Acute Risks, benefits, side effects, alternatives discussed w/pt: Yes Patient agreeable to treatment: Yes Qualifiers: Current episode severity: severe Psychotic features: with psychotic features Qualified Code(s): F31.5 - Bipolar disorder, current episode depressed, severe, with psychotic features (2) Borderline personality disorder Current visit: Yes Status: Acute Risks, benefits, side effects, alternatives discussed w/pt: Yes Patient agreeable to treatment: Yes Consult Discharge Plan - Plan Instructions: Mood Disorders (DC), Depression (DC) Referrals: [facility] [Outside] - 04/11/17 9:00 am (The above appointment is with Nicole Menendez for mental health and substance abuse counseling services.) Almita Benavidez [Advanced Practice Nurse] - 04/17/17 3:00 pm (The above appointment is with Almita Benavidez CNP, at Primary Care within [facility]. This appointment is to establish you with a primary care provider. Your needs for medication and/or Vivitrol will be assessed and treated as indicated as well. Please arrive 15 minutes early to complete paperwork. Please bring your insurance card, photo ID and list of current medications to your first appointment. This is the first available appointment. You may contact the office regularly to check for cancellations that may allow you to be seen sooner. )
--- NOTE | 2017-04-02 11:12 | Discharge Summary ---
Date of Encounter: 04/04/17 Time of Encounter: 10:30 Diagnosis - Discharge Diagnosis (1) Bipolar disorder current episode depressed Priority: Primary () Status: Acute Qualifiers: Current episode severity: severe Psychotic features: with psychotic features Qualified Code(s): F31.5 - Bipolar disorder, current episode depressed, severe, with psychotic features (2) Borderline personality disorder Status: Acute (3) Polysubstance abuse Status: Acute Medications - Discharge Medications Prescriptions: Buspirone HCl [Buspar] 10 mg PO TID #90 tab Quetiapine Fumarate [Seroquel] 100 mg PO HS #30 tab Buspirone HCl [Buspar] 10 mg PO TID #90 tab 04/02/17 [Rx] Quetiapine Fumarate [Seroquel] 100 mg PO HS #30 tab 04/02/17 [Rx] Allergies ibuprofen Allergy (Unknown, Verified 03/28/17 12:38) Unknown aspirin [ASA] Allergy (Verified 03/28/17 12:38) unknown propoxyphene [From Darvocet-N] Allergy (Verified 03/28/17 12:38) Unknown Provider Date of admission: 03/28/17 18:44 Primary care physician: PCP NONE Discharging clinician: Maris Ochoa Assessment and Plan - Patient/Caregiver Discharge Instructions Diet: regular diet - Follow up Plan Follow up with: [facility] [Outside] - 04/11/17 9:00 am (The above appointment is with Nicole Menendez for mental health and substance abuse counseling services.) Almita Benavidez [Advanced Practice Nurse] - 04/17/17 3:00 pm (The above appointment is with Almita Benavidez CNP, at Primary Care within [facility]. This appointment is to establish you with a primary care provider. Your needs for medication and/or Vivitrol will be assessed and treated as indicated as well. Please arrive 15 minutes early to complete paperwork. Please bring your insurance card, photo ID and list of current medications to your first appointment. This is the first available appointment. You may contact the office regularly to check for cancellations that may allow you to be seen sooner. ) Functional capacity at discharge: independent ambulation Overall status at discharge: Stable Disposition: Home, Self-Care Hospital Course Hospital course: Ms. Fournier is a 22 year old female with history of bipolar and substance use and borderline personality disorder. She presented to ER with depression and suicidal ideation , she was admitted to 1A for stabilization, she denied suicidal from day 1 and during her stay was focused oh her discharge. she has been compliant with meds and unit mileu , she has been interacting with peers , she was given education about Borderline Personality and her substance use. she feels she knows how to stay sober. she declined inpatient rehab and senior care placement. she is psychiatrically stable at present and not in imenent danger to self/ others. she has some hoarsness of voice since she was intubated in 12/10 . she will be refered to PCP also . Time spent discussing smoking cessation with patient: 3 to 10 minutes Does patient wish to continue nicotine replacement upon disc: No - Time Spent with Patient Total time spent providing and/or coordinating discharge services: Less than 30 minutes Quality - Multiple Antipsychotics Patient discharged on 2 or more antipsychotic medications: No Procedures - Procedures Procedures: Medication Management, Crisis Stabilization, Supportive Therapy, Group Therapy, Psychoeducational Therapy Mental Status Exam - Mental Status Exam Patient orientation: Yes Person, Yes Time, Yes Place Level of alertness: Alert Patient appearance: Appropriate Behavior: calm, cooperative Psychomotor activity: Normal Eye contact: Maintains Eye Contact Mood description: Euthymic/stable Affect description: congruent with mood Speech pattern: Normal rate Speech Volume: Normal Thought process: Intact Thought Content: Yes Intact Judgment: Good Insight: Partial
== END 2017-04-02 11:45 | disposition home or self-care (01) | DRG 753 ==
LOC: EMEROO 12:35 → 1ANU 18:44 → SUATTDRO 18:44 → 1ANU 18:52
PROVIDERS: ADMIT Student in an Organized Health Care Education/Training Program; ATTEND Psychiatry & Neurology Psychiatry

== ENCOUNTER 2019-07-05 22:54 | Inpatient (IN) ==
[2019-07-05] MEDS ORDERED: Nicotine 21 MG PATCH.TD24 TD STA (23:14)
[2019-07-05 23:22] LABS: Basophils % 0.5 %; Eosinophils # 0.4 K/mcL (0.0-0.6); Eosinophils % 7.2 %; Hematocrit 39.2 % (35.3-44.9); Hemoglobin 13.5 g/dL (11.5-15.4); Immature Granulocytes % 0.2 % (0-4); Immature Platelets 3.2 % (1.1-6.1); Lymphocytes # 2.4 K/mcL (0.6-4.6); Lymphocytes % 40.2 %; Mean Corpuscular HGB Conc 34.4 g/dL (31.6-35.5); Mean Corpuscular Hemoglobin 32.4 pg (28.0-33.3); Mean Platelet Volume 9.9 fL (9.4-12.4); Monocytes # 0.6 K/mcL (0.0-1.3); Monocytes % 9.3 %; Neutrophils # 2.5 K/mcL (1.6-8.9); Platelet Count 144 K/mcL (140-400); Red Blood Count 4.17 M/mcL (3.82-4.97); Red Cell Distribution Width 13.1 % (11.5-14.5); Segmented Neutrophils % 42.6 %; White Blood Count 5.9 K/mcL (4.3-11.1)
[2019-07-05 23:40] LABS: Bilirubin,Urine Small (Negative); Blood,Urine Trace (Negative); Clarity,Urine Cloudy (Clear); Color,Urine Dark Yellow (Yellow); Glucose,Urine (UA) Normal (Normal); Ketones,Urine Trace mg/dL (Negative); Leukocyte Esterase,Urine Moderate (Negative); Nitrite,Urine Negative (Negative); PH,Urine 5.5 pH Units (5.0-8.0); Protein,Urine Trace mg/dL (Neg-Trace); Specific Gravity,Urine 1.023 (1.010-1.025); Urobilinogen,Urine Normal (Normal)
[2019-07-05 23:42] LABS: Bacteria,Urine Few per hpf (None-Few); Squamous Epithelial Cell,Urine Many per lpf (None-Few)
[2019-07-05 23:45] LABS: Acetaminophen < 10 mcg/mL (10-20); BUN/Creatinine Ratio 10 (6-26); Blood Urea Nitrogen 5 mg/dL (6-20); Carbon Dioxide 28 mEq/L (23-29); Chloride 102 mEq/L (98-107); Ethanol < 10 mg/dL (Less than 10); Glucose 95 mg/dL (70-105); Osmolality,Calculated 279 (280-300); Potassium 3.8 mEq/L (3.5-5.1); Salicylate < 2.5 mg/dL (15.0-30.0); Sodium 136 mEq/L (136-145); eGFR For African Americans > 60 (> 60); eGFR For Non-African Americans > 60 (> 60)
[2019-07-05 23:51] LABS: Amphetamine Screen,Urine Positive ng/mL (Cutoff=1000); Barbiturate Screen,Urine Negative ng/mL (Cutoff=200); Benzodiazepines Screen,Urine Negative ng/mL (Cutoff=200); Cannabinoid Screen,Urine Positive ng/mL (Cutoff = 50); Cocaine Screen,Urine Negative ng/mL (Cutoff= 300); Opiate Screen,Urine Positive ng/mL (Cutoff=300); Phencyclidine Screen,Urine Negative ng/mL (Cutoff=25)
[2019-07-05 23:57] LABS: Mucus,Urine Few (Few)
[2019-07-05 23:58] LABS: RBC,Urine 0-3 per hpf (0-3)
[2019-07-06] MEDS ORDERED: Mag Hydrox/Al Hydrox/Simeth 30 ML UDC PO PRN (02:19)
[2019-07-06] MEDS ORDERED: *HR* LORazepam 1 MG TABLET PO PRN (02:19)
[2019-07-06] MEDS ORDERED: MOM Conc 10 ML UD.LIQ PO PRN (02:19)
[2019-07-06] MEDS ORDERED: Haloperidol Lactate 5 MG/ML VIAL IM PRN (02:19)
[2019-07-06] MEDS ORDERED: *HR* LORazepam 2 MG/ML VIAL IM PRN (02:19)
[2019-07-06] MEDS: Nicotine 21 MG PATCH.TD24 TD SCH (11:50)
[2019-07-06] MEDS: ARIPiprazole 10 MG TABLET PO SCH (14:02)
[2019-07-06] MEDS: Acetaminophen 325 MG TABLET PO PRN (17:29)
[2019-07-06] MEDS: Sulfamethoxazole/Trimeth DS 1 EACH TABLET PO SCH ×2 (20:35→20:43)
[2019-07-07] MEDS: Acetaminophen 325 MG TABLET PO PRN ×2 (08:21→20:04)
[2019-07-07] MEDS: Sulfamethoxazole/Trimeth DS 1 EACH TABLET PO SCH ×2 (08:22→20:43)
[2019-07-07] MEDS: ARIPiprazole 10 MG TABLET PO SCH (08:22)
[2019-07-07] MEDS: Nicotine 21 MG PATCH.TD24 TD SCH (08:22)
[2019-07-07] MEDS ORDERED: ARIPiprazole 10 MG TABLET PO ONE (11:22)
[2019-07-07] MEDS: hydrOXYzine pamoate 25 MG CAPSULE PO PRN (20:44)
[2019-07-08] MEDS: ARIPiprazole 10 MG TABLET PO SCH (08:34)
[2019-07-08] MEDS: Sulfamethoxazole/Trimeth DS 1 EACH TABLET PO SCH ×2 (08:34→20:23)
[2019-07-08] MEDS: Nicotine 21 MG PATCH.TD24 TD SCH (08:40)
[2019-07-08] MEDS: hydrOXYzine pamoate 25 MG CAPSULE PO PRN ×2 (12:12→18:58)
[2019-07-09] MEDS: Acetaminophen 325 MG TABLET PO PRN ×2 (02:12→14:37)
[2019-07-09] MEDS: hydrOXYzine pamoate 25 MG CAPSULE PO PRN ×3 (02:13→20:36)
[2019-07-09] MEDS: ARIPiprazole 10 MG TABLET PO SCH (08:43)
[2019-07-09] MEDS: Sulfamethoxazole/Trimeth DS 1 EACH TABLET PO SCH ×2 (08:44→20:36)
[2019-07-09] MEDS: Nicotine 21 MG PATCH.TD24 TD SCH (08:45)
[2019-07-10] MEDS: ARIPiprazole 10 MG TABLET PO SCH (08:37)
[2019-07-10] MEDS: Nicotine 21 MG PATCH.TD24 TD SCH (08:37)
[2019-07-10] MEDS: Sulfamethoxazole/Trimeth DS 1 EACH TABLET PO SCH (08:37)
[2019-07-10 10:03] VITALS: BP 133/89
== END 2019-07-10 10:10 | disposition home or self-care (01) | DRG 776 ==
LOC: 1ANU 22:54 → EMEROOARM 22:54 → SUATTDRO 07-06 02:14 → 1ANU 07-06 02:20
PROVIDERS: ADMIT Psychiatry & Neurology Psychiatry; ATTEND Psychiatry & Neurology Psychiatry

== ENCOUNTER 2019-09-15 21:45 | Observation (INO) ==
[2019-09-15] MEDS ORDERED: 0.9 % Sodium Chloride 1,000 ML IVC ONE (22:32)
[2019-09-15] MEDS ORDERED: Isovue-370 500 ML BOTTLE IVP ONE ×2 (22:42→22:56)
[2019-09-15 23:46] LABS: Basophils % 0.4 %; Eosinophils # 0.2 K/mcL (0.0-0.6); Hematocrit 36.8 % (35.3-44.9); Hemoglobin 13.1 g/dL (11.5-15.4); Immature Granulocytes % 0.4 % (0-4); Lymphocytes % 28.9 %; Mean Corpuscular HGB Conc 35.6 g/dL (31.6-35.5); Mean Corpuscular Hemoglobin 31.8 pg (28.0-33.3); Mean Corpuscular Volume 89.3 fL (83.0-100.0); Mean Platelet Volume 8.9 fL (9.4-12.4); Monocytes # 0.7 K/mcL (0.0-1.3); Monocytes % 6.5 %; Neutrophils # 6.4 K/mcL (1.6-8.9); Platelet Count 285 K/mcL (140-400); Red Blood Count 4.12 M/mcL (3.82-4.97); Red Cell Distribution Width 12.9 % (11.5-14.5); Segmented Neutrophils % 61.8 %; White Blood Count 10.3 K/mcL (4.3-11.1)
[2019-09-15 23:53] LABS: INR 1.2; Prothrombin Time 13.8 Seconds (9.4-12.1)
[2019-09-15 23:56] LABS: Activated Partial Thrombo Time 32.1 Seconds (26.0-36.0)
[2019-09-15 23:58] LABS: Bacteria,Urine Many per hpf (None-Few); Bilirubin,Urine Small (Negative); Blood,Urine Negative (Negative); Clarity,Urine Cloudy (Clear); Color,Urine Dark Yellow (Yellow); Glucose,Urine (UA) Normal (Normal); Hyaline Casts,Urine Few per lpf (None-Few); Ketones,Urine Negative (Negative); Leukocyte Esterase,Urine Small (Negative); Nitrite,Urine Negative (Negative); Protein,Urine Negative (Neg-Trace); RBC,Urine 0-3 per hpf (0-3); Specific Gravity,Urine 1.026 (1.010-1.025); Squamous Epithelial Cell,Urine Many per lpf (None-Few); Urobilinogen,Urine Normal (Normal); WBC,Urine 30-50 per hpf (0-3)
[2019-09-16 00:09] LABS: Alanine Aminotransferase 17 Units/L (7-52); Albumin 3.6 g/dL (3.5-5.7); Albumin/Globulin Ratio 0.9 (1.1-2.2); Alkaline Phosphatase 77 Units/L (34-104); Aspartate Amino Transferase 24 Units/L (13-39); BUN/Creatinine Ratio 18 (6-26); Bilirubin,Direct 0.2 mg/dL (0.0-0.2); Bilirubin,Indirect 0.4 mg/dL (0.0-1.0); Bilirubin,Total 0.6 mg/dL (0.3-1.0); Blood Urea Nitrogen 10 mg/dL (6-20); Calcium 8.7 mg/dL (8.6-10.3); Carbon Dioxide 25 mEq/L (23-29); Chloride 101 mEq/L (98-107); Globulin 4.1 g/dL (2.4-3.5); Glucose 95 mg/dL (70-105); Osmolality,Calculated 277 (280-300); Potassium 3.8 mEq/L (3.5-5.1); Sodium 134 mEq/L (136-145); Total Protein 7.7 g/dL (6.4-8.9); Troponin I < 0.03 ng/mL (< 0.04); eGFR For African Americans > 60 (> 60); eGFR For Non-African Americans > 60 (> 60)
[2019-09-16 04:02] LABS: Chlamydia Trachomatis DNA Ur NOT DETECTED (Not Detect)
[2019-09-16] MEDS ORDERED: Naloxone 0.4 MG/ML INJ IVP PRN ×3 (05:55→20:10)
[2019-09-16] MEDS: Ketorolac 30 MG/ML VIAL IVP PRN ×2 (06:44→13:20)
[2019-09-16] MEDS ORDERED: *HR* OxyCODONE Immed Rel 5 MG TABLET PO PRN ×4 (07:51→20:10)
[2019-09-16] MEDS ORDERED: Acetaminophen 325 MG TABLET PO PRN (07:51)
[2019-09-16] MEDS ORDERED: Chloraseptic Spray 177 ML BOTTLE MM PRN ×2 (10:00→20:10)
[2019-09-16] MEDS ORDERED: cloNIDine HCl 0.1 MG TABLET PO ONE (10:02)
[2019-09-16] MEDS ORDERED: Ringers Solution, Lactated 1,000 ML IVC SCH (12:30)
[2019-09-16] MEDS: Ampicillin/Sulbactam 3,000 MG in 0.9 % Sodium Chloride Mini Bag 100 ML IVPB SCH ×2 (13:21→17:30)
[2019-09-16] MEDS ORDERED: *HR* FentaNYL PATCH 50 MCG PATCH TD SCH (13:45)
[2019-09-16] MEDS ORDERED: ARIPiprazole 10 MG TABLET PO SCH (14:11)
[2019-09-16] MEDS ORDERED: OLANZapine 10 MG TAB.RAPDIS PO SCH (14:12)
[2019-09-16 14:52] LABS: Candida DNA Not Detected (Not Detect); Gardnerella DNA DETECTED (Not Detect); Trichomonas DNA Not Detected (Not Detect)
[2019-09-16 15:48] LABS: Hepatitis B Surface Antigen Nonreactive (Nonreactive)
[2019-09-16] MEDS ORDERED: Piperacillin/Tazobactam 3.375 GM in 0.9 % Sodium Chloride Mini Bag 100 ML IVPB SCH (16:00)
[2019-09-16 16:38] LABS: Amphetamine Screen,Urine Positive ng/mL (Cutoff=1000); Barbiturate Screen,Urine Negative ng/mL (Cutoff=200); Benzodiazepines Screen,Urine Negative ng/mL (Cutoff=200); Cannabinoid Screen,Urine Positive ng/mL (Cutoff = 50); Cocaine Screen,Urine Negative ng/mL (Cutoff= 300); Opiate Screen,Urine Positive ng/mL (Cutoff=300); Phencyclidine Screen,Urine Negative ng/mL (Cutoff=25)
[2019-09-16 16:57] LABS: HIV-1&2 Antibody & p24 Ag Nonreactive (Nonreactive)
[2019-09-16] MEDS ORDERED: *HR* Heparin 5,000 UNIT/ML VIAL SQ SCH (18:00)
[2019-09-16] MEDS ORDERED: *HR* Propofol 200 MG/20 ML VIAL IVP ONE (18:22)
[2019-09-16] MEDS ORDERED: Lidocaine -MPF 2% 2 ML VIAL ONE (18:22)
[2019-09-16] MEDS ORDERED: *HR* FentaNYL (PF) 100 MCG/2 ML VIAL ONE (18:22)
[2019-09-16] MEDS ORDERED: *HR* Labetalol 20 MG/4 ML SYRINGE IVP PRN ×2 (18:22→20:10)
[2019-09-16] MEDS ORDERED: *HR* Midazolam HCl 2 MG/2 ML VIAL ONE (18:22)
[2019-09-16] MEDS ORDERED: Bupivacaine/EPI 1:200k 0.5%PF 10 ML VIAL ONE (18:23)
[2019-09-16] MEDS ORDERED: *HR* LORazepam 2 MG/ML VIAL IVP PRN ×2 (18:25→20:10)
[2019-09-16] MEDS ORDERED: Morphine Sulfate 2 MG/ML SYRINGE IVP PRN ×2 (18:25→20:10)
[2019-09-16] MEDS ORDERED: Isovue-370 500 ML BOTTLE IVP ONE (20:10)
[2019-09-16] MEDS ORDERED: metroNIDAZOLE 500 MG TABLET PO SCH ×2 (21:00)
[2019-09-16] MEDS: Ringers Solution, Lactated 1,000 ML IVC SCH (21:33)
[2019-09-17] MEDS: Ampicillin/Sulbactam 3,000 MG in 0.9 % Sodium Chloride Mini Bag 100 ML IVPB SCH ×4 (00:13→18:45)
[2019-09-17 02:44] LABS: Immature Platelets 0.7 % (1.1-6.1); Red Cell Distribution Width 12.9 % (11.5-14.5)
[2019-09-17 02:55] LABS: Basophils % 0.2 %; Eosinophils # 0.2 K/mcL (0.0-0.6); Eosinophils % 2.9 %; Hematocrit 33.7 % (35.3-44.9); Hemoglobin 11.2 g/dL (11.5-15.4); Immature Granulocytes % 0.3 % (0-4); Lymphocytes # 2.1 K/mcL (0.6-4.6); Lymphocytes % 35.4 %; Mean Corpuscular HGB Conc 33.2 g/dL (31.6-35.5); Mean Corpuscular Volume 93.4 fL (83.0-100.0); Mean Platelet Volume 9.2 fL (9.4-12.4); Monocytes # 0.4 K/mcL (0.0-1.3); Monocytes % 6.2 %; Neutrophils # 3.2 K/mcL (1.6-8.9); Platelet Count 246 K/mcL (140-400); Red Blood Count 3.61 M/mcL (3.82-4.97); White Blood Count 5.8 K/mcL (4.3-11.1)
[2019-09-17 03:04] LABS: BUN/Creatinine Ratio 15 (6-26); Blood Urea Nitrogen 8 mg/dL (6-20); Calcium 8.4 mg/dL (8.6-10.3); Carbon Dioxide 25 mEq/L (23-29); Chloride 108 mEq/L (98-107); Glucose 84 mg/dL (70-105); Osmolality,Calculated 292 (280-300); Potassium 3.9 mEq/L (3.5-5.1); Sodium 142 mEq/L (136-145); eGFR For African Americans > 60 (> 60); eGFR For Non-African Americans > 60 (> 60)
[2019-09-17] MEDS: Ringers Solution, Lactated 1,000 ML IVC SCH ×2 (05:09→23:53)
[2019-09-17] MEDS: *HR* Heparin 5,000 UNIT/ML VIAL SQ SCH ×2 (05:16→18:17)
[2019-09-17] MEDS ORDERED: *HR* OxyCODONE Immed Rel 5 MG TABLET PO PRN (07:40)
[2019-09-17] MEDS ORDERED: OLANZapine 10 MG TAB.RAPDIS PO SCH (09:00)
[2019-09-17] MEDS: Ketorolac 30 MG/ML VIAL IVP PRN (09:09)
[2019-09-17] MEDS: ARIPiprazole 10 MG TABLET PO SCH (09:09)
[2019-09-17] MEDS: metroNIDAZOLE 500 MG TABLET PO SCH ×4 (12:37→21:24)
[2019-09-17] MEDS ORDERED: Aminoglycoside Consult 1 EACH MC ONE (14:51)
[2019-09-18] MEDS: Acetaminophen 325 MG TABLET PO PRN ×2 (01:32→14:40)
[2019-09-18] MEDS: Ampicillin/Sulbactam 3,000 MG in 0.9 % Sodium Chloride Mini Bag 100 ML IVPB SCH ×2 (01:34→06:03)
[2019-09-18] MEDS: *HR* Heparin 5,000 UNIT/ML VIAL SQ SCH ×2 (06:04→17:38)
[2019-09-18 06:09] LABS: Basophils % 0.4 %; Eosinophils # 0.3 K/mcL (0.0-0.6); Hematocrit 33.3 % (35.3-44.9); Hemoglobin 11.6 g/dL (11.5-15.4); Immature Granulocytes % 0.3 % (0-4); Lymphocytes # 2.5 K/mcL (0.6-4.6); Mean Corpuscular HGB Conc 34.8 g/dL (31.6-35.5); Mean Corpuscular Hemoglobin 31.7 pg (28.0-33.3); Mean Platelet Volume 8.8 fL (9.4-12.4); Monocytes # 0.5 K/mcL (0.0-1.3); Monocytes % 7.1 %; Neutrophils # 4.1 K/mcL (1.6-8.9); Platelet Count 249 K/mcL (140-400); Red Blood Count 3.66 M/mcL (3.82-4.97); Red Cell Distribution Width 12.4 % (11.5-14.5); Segmented Neutrophils % 55.2 %; White Blood Count 7.5 K/mcL (4.3-11.1)
[2019-09-18 06:33] LABS: BUN/Creatinine Ratio 14 (6-26); Blood Urea Nitrogen 8 mg/dL (6-20); Calcium 8.4 mg/dL (8.6-10.3); Carbon Dioxide 26 mEq/L (23-29); Chloride 102 mEq/L (98-107); Glucose 137 mg/dL (70-105); Osmolality,Calculated 288 (280-300); Potassium 3.7 mEq/L (3.5-5.1); Sodium 139 mEq/L (136-145); eGFR For African Americans > 60 (> 60); eGFR For Non-African Americans > 60 (> 60)
[2019-09-18] MEDS: metroNIDAZOLE 500 MG TABLET PO SCH ×2 (09:29→20:25)
[2019-09-18] MEDS: ARIPiprazole 10 MG TABLET PO SCH (09:29)
[2019-09-18] MEDS: Ketorolac 30 MG/ML VIAL IVP PRN ×2 (09:34→19:02)
[2019-09-18] MEDS: Doxycycline 100 MG CAPSULE PO SCH ×2 (11:51→20:24)
[2019-09-19 02:39] LABS: Basophils % 0.5 %; Eosinophils # 0.3 K/mcL (0.0-0.6); Eosinophils % 4.4 %; Hematocrit 32.3 % (35.3-44.9); Hemoglobin 10.7 g/dL (11.5-15.4); Immature Granulocytes % 0.2 % (0-4); Lymphocytes # 2.1 K/mcL (0.6-4.6); Lymphocytes % 32.4 %; Mean Corpuscular HGB Conc 33.1 g/dL (31.6-35.5); Mean Corpuscular Hemoglobin 31.4 pg (28.0-33.3); Mean Corpuscular Volume 94.7 fL (83.0-100.0); Mean Platelet Volume 9.5 fL (9.4-12.4); Monocytes # 0.5 K/mcL (0.0-1.3); Monocytes % 7.2 %; Neutrophils # 3.6 K/mcL (1.6-8.9); Platelet Count 243 K/mcL (140-400); Red Blood Count 3.41 M/mcL (3.82-4.97); Red Cell Distribution Width 12.5 % (11.5-14.5); Segmented Neutrophils % 55.3 %; White Blood Count 6.5 K/mcL (4.3-11.1)
[2019-09-19] MEDS: *HR* Heparin 5,000 UNIT/ML VIAL SQ SCH (05:37)
[2019-09-19] MEDS: Doxycycline 100 MG CAPSULE PO SCH (10:03)
[2019-09-19] MEDS: metroNIDAZOLE 500 MG TABLET PO SCH (10:03)
[2019-09-19] MEDS: ARIPiprazole 10 MG TABLET PO SCH (10:03)
[2019-09-19] MEDS: Ketorolac 30 MG/ML VIAL IVP PRN (10:32)
[2019-09-19 10:49] LABS: BUN/Creatinine Ratio 22 (6-26); Blood Urea Nitrogen 12 mg/dL (6-20); Calcium 8.4 mg/dL (8.6-10.3); Carbon Dioxide 27 mEq/L (23-29); Chloride 105 mEq/L (98-107); Glucose 179 mg/dL (70-105); Osmolality,Calculated 292 (280-300); Potassium 3.7 mEq/L (3.5-5.1); Sodium 139 mEq/L (136-145); eGFR For African Americans > 60 (> 60); eGFR For Non-African Americans > 60 (> 60)
[2019-09-19 10:56] LABS: HCV Quant Interpretation DETECTED (Not Detected); HCV Quant Log <1.00 log IU/mL
[2019-09-19 12:56] VITALS: BP 124/70
[2019-09-19] MEDS ORDERED: *HR* FentaNYL PATCH 50 MCG PATCH TD SCH (13:45)
== END 2019-09-19 14:52 | disposition home health service (06) ==
LOC: CDU 21:45 → EMEROOARM 21:45 → SUATTDRO 09-16 02:40 → CDU 09-16 02:44 → 3NENU 09-17 16:19
PROVIDERS: ADMIT Family Medicine; ATTEND Internal Medicine

== ENCOUNTER 2019-11-07 14:30 | Observation (INO) ==
[2019-11-07 18:29] LABS: Bilirubin,Urine Negative (Negative); Blood,Urine Moderate (Negative); Clarity,Urine Cloudy (Clear); Color,Urine Yellow (Yellow); Glucose,Urine (UA) Normal (Normal); Ketones,Urine Negative (Negative); Leukocyte Esterase,Urine Negative (Negative); Nitrite,Urine Negative (Negative); PH,Urine 6.5 pH Units (5.0-8.0); Protein,Urine Negative (Neg-Trace); Urobilinogen,Urine Normal (Normal)
[2019-11-07 18:31] LABS: Bacteria,Urine None Seen per hpf (None-Few); Hyaline Casts,Urine None Seen per lpf (None-Few); RBC,Urine 0-3 per hpf (0-3); Squamous Epithelial Cell,Urine Moderate per lpf (None-Few); WBC,Urine 0-3 per hpf (0-3)
[2019-11-07] MEDS ORDERED: Isovue-370 500 ML BOTTLE IVP ONE (18:52)
[2019-11-07 19:01] LABS: Candida DNA Not Detected (Not Detect); Gardnerella DNA Not Detected (Not Detect); Trichomonas DNA Not Detected (Not Detect)
[2019-11-07] MEDS: Piperacillin/Tazobactam 3.375 GM in 0.9 % Sodium Chloride Mini Bag 100 ML IVPB STA ×2 (21:07)
[2019-11-07] MEDS ORDERED: Naloxone 0.4 MG/ML INJ IVP PRN (21:53)
[2019-11-07] MEDS ORDERED: Ondansetron 4 MG/2 ML VIAL IVP PRN (21:53)
[2019-11-07] MEDS ORDERED: Vancomycin 0 MG in 0.9 % Sodium Chloride 250 ML IVPB SCH (22:00)
[2019-11-07] MEDS: *HR* Heparin 5,000 UNIT/ML VIAL SQ SCH (22:40)
[2019-11-07] MEDS: 0.9 % Sodium Chloride 1,000 ML IVC SCH (23:06)
[2019-11-08] MEDS ORDERED: *HR* OxyCODONE/APAP 5/325 TABLET PO ONE (01:01)
[2019-11-08 01:36] LABS: Activated Partial Thrombo Time 34.4 Seconds (26.0-36.0); INR 1.3; Prothrombin Time 14.5 Seconds (9.4-12.1)
[2019-11-08 01:48] LABS: Troponin I < 0.03 ng/mL (< 0.04)
[2019-11-08] MEDS ORDERED: Melatonin 3 MG TABLET PO PRN (02:13)
[2019-11-08 02:23] LABS: Basophils % 0.9 %; Eosinophils # 0.3 K/mcL (0.0-0.6); Eosinophils % 7.4 %; Hematocrit 36.9 % (35.3-44.9); Hemoglobin 12.2 g/dL (11.5-15.4); Immature Granulocytes % 0.2 % (0-4); Lymphocytes # 1.7 K/mcL (0.6-4.6); Lymphocytes % 38.4 %; Mean Corpuscular HGB Conc 33.1 g/dL (31.6-35.5); Mean Corpuscular Hemoglobin 30.8 pg (28.0-33.3); Mean Corpuscular Volume 93.2 fL (83.0-100.0); Mean Platelet Volume 8.9 fL (9.4-12.4); Monocytes # 0.4 K/mcL (0.0-1.3); Monocytes % 9.9 %; Neutrophils # 1.9 K/mcL (1.6-8.9); Platelet Count 215 K/mcL (140-400); Red Blood Count 3.96 M/mcL (3.82-4.97); Red Cell Distribution Width 12.3 % (11.5-14.5); Segmented Neutrophils % 43.2 %; White Blood Count 4.4 K/mcL (4.3-11.1)
[2019-11-08 02:33] LABS: Alanine Aminotransferase 41 Units/L (7-52); Albumin 3.6 g/dL (3.5-5.7); Albumin/Globulin Ratio 0.9 (1.1-2.2); Alkaline Phosphatase 114 Units/L (34-104); Aspartate Amino Transferase 48 Units/L (13-39); BUN/Creatinine Ratio 11 (6-26); Bilirubin,Direct 0.1 mg/dL (0.0-0.2); Bilirubin,Indirect 0.3 mg/dL (0.0-1.0); Bilirubin,Total 0.4 mg/dL (0.3-1.0); Blood Urea Nitrogen 6 mg/dL (6-20); Calcium 9.1 mg/dL (8.6-10.3); Carbon Dioxide 22 mEq/L (23-29); Chloride 100 mEq/L (98-107); Globulin 4.2 g/dL (2.4-3.5); Glucose 78 mg/dL (70-105); Magnesium 2.3 mg/dL (1.6-2.6); Osmolality,Calculated 276 (280-300); Potassium 3.9 mEq/L (3.5-5.1); Sodium 135 mEq/L (136-145); Total Protein 7.8 g/dL (6.4-8.9); eGFR For African Americans > 60 (> 60); eGFR For Non-African Americans > 60 (> 60)
[2019-11-08 02:38] LABS: BUN/Creatinine Ratio 9 (6-26); Blood Urea Nitrogen 6 mg/dL (6-20); Calcium 8.6 mg/dL (8.6-10.3); Carbon Dioxide 32 mEq/L (23-29); Chloride 102 mEq/L (98-107); Glucose 91 mg/dL (70-105); Magnesium 2.2 mg/dL (1.6-2.6); Osmolality,Calculated 283 (280-300); Potassium 3.5 mEq/L (3.5-5.1); Sodium 138 mEq/L (136-145); eGFR For African Americans > 60 (> 60); eGFR For Non-African Americans > 60 (> 60)
[2019-11-08] MEDS: *HR* Heparin 5,000 UNIT/ML VIAL SQ SCH (05:40)
[2019-11-08 06:37] LABS: Hematocrit 38.4 % (35.3-44.9); Hemoglobin 12.6 g/dL (11.5-15.4); Mean Corpuscular HGB Conc 32.8 g/dL (31.6-35.5); Mean Corpuscular Hemoglobin 30.4 pg (28.0-33.3); Mean Corpuscular Volume 92.8 fL (83.0-100.0); Mean Platelet Volume 9.1 fL (9.4-12.4); Neutrophils # 2.7 K/mcL (1.6-8.9); Platelet Count 242 K/mcL (140-400); Red Blood Count 4.14 M/mcL (3.82-4.97); Red Cell Distribution Width 42.1 % (11.5-14.5); Segmented Neutrophils % 53.9 %
[2019-11-08] MEDS ORDERED: Ketorolac 30 MG/ML VIAL IVP PRN (07:32)
[2019-11-08] MEDS: Piperacillin/Tazobactam 3.375 GM in 0.9 % Sodium Chloride Mini Bag 100 ML IVPB SCH ×3 (08:44→23:03)
[2019-11-08 10:07] LABS: Amphetamine Screen,Urine Positive ng/mL (Cutoff=1000); Barbiturate Screen,Urine Negative ng/mL (Cutoff=200); Benzodiazepines Screen,Urine Negative ng/mL (Cutoff=200); Cannabinoid Screen,Urine Negative ng/mL (Cutoff = 50); Cocaine Screen,Urine Negative ng/mL (Cutoff= 300); Opiate Screen,Urine Negative ng/mL (Cutoff=300); Phencyclidine Screen,Urine Negative ng/mL (Cutoff=25)
[2019-11-08] MEDS: 0.9 % Sodium Chloride 1,000 ML IVC SCH (10:57)
[2019-11-08] MEDS: Ketorolac 15 MG/ML VIAL IVP PRN ×2 (10:59→22:46)
[2019-11-08] MEDS ORDERED: Pantoprazole 40 MG VIAL IVP SCH (11:00)
[2019-11-08] MEDS ORDERED: *HR* LORazepam 2 MG/ML VIAL IVP ONE (22:52)
[2019-11-09 05:15] LABS: Basophils % 0.7 %; Eosinophils # 0.2 K/mcL (0.0-0.6); Eosinophils % 6.3 %; Hematocrit 37.6 % (35.3-44.9); Hemoglobin 11.9 g/dL (11.5-15.4); Mean Corpuscular HGB Conc 31.6 g/dL (31.6-35.5); Mean Corpuscular Hemoglobin 29.5 pg (28.0-33.3); Mean Corpuscular Volume 93.3 fL (83.0-100.0); Monocytes # 0.2 K/mcL (0.0-1.3); Monocytes % 7.4 %; Neutrophils # 1.2 K/mcL (1.6-8.9); Platelet Count 221 K/mcL (140-400); Red Blood Count 4.03 M/mcL (3.82-4.97); Red Cell Distribution Width 12.4 % (11.5-14.5); Segmented Neutrophils % 41.6 %; White Blood Count 2.8 K/mcL (4.3-11.1)
[2019-11-09 05:25] LABS: BUN/Creatinine Ratio 13 (6-26); Blood Urea Nitrogen 7 mg/dL (6-20); Calcium 8.3 mg/dL (8.6-10.3); Carbon Dioxide 28 mEq/L (23-29); Chloride 109 mEq/L (98-107); Glucose 99 mg/dL (70-105); Osmolality,Calculated 288 (280-300); Potassium 4.1 mEq/L (3.5-5.1); Sodium 140 mEq/L (136-145); eGFR For African Americans > 60 (> 60); eGFR For Non-African Americans > 60 (> 60)
[2019-11-09 05:27] LABS: Lymphocytes # 1.2 K/mcL (0.6-4.6)
[2019-11-09 05:49] LABS: Platelet Estimate Normal (Normal); Reactive Lymphocytes Present (Not Present)
[2019-11-09] MEDS ORDERED: ARIPiprazole 10 MG TABLET PO SCH (09:00)
[2019-11-09 10:19] VITALS: BP 144/75
[2019-11-09] MEDS: Piperacillin/Tazobactam 3.375 GM in 0.9 % Sodium Chloride Mini Bag 100 ML IVPB SCH (10:19)
[2019-11-09] MEDS ORDERED: Aminoglycoside Consult 1 EACH MC ONE (11:16)
== END 2019-11-09 11:17 | disposition left against medical advice (07) ==
LOC: 3ANU 14:30 → EMEROOARM 14:30 → SUATTDRO 21:26 → 3ANU 21:57
PROVIDERS: ADMIT Student in an Organized Health Care Education/Training Program; ATTEND Internal Medicine

== ENCOUNTER 2019-12-21 17:04 | Observation (INO) ==
[2019-12-21] MEDS ORDERED: 0.9 % Sodium Chloride 1,000 ML IVC ONE (17:57)
[2019-12-21] MEDS ORDERED: Piperacillin/Tazobactam 3.375 GM in Water for inj. (sterile) 20 ML IVP ONE (17:57)
[2019-12-21 18:47] LABS: Basophils % 0.4 %; Eosinophils # 0.2 K/mcL (0.0-0.6); Hematocrit 38.1 % (35.3-44.9); Hemoglobin 12.5 g/dL (11.5-15.4); Immature Granulocytes % 0.3 % (0-4); Lymphocytes # 2.3 K/mcL (0.6-4.6); Lymphocytes % 28.8 %; Mean Corpuscular HGB Conc 32.8 g/dL (31.6-35.5); Mean Corpuscular Hemoglobin 29.9 pg (28.0-33.3); Mean Corpuscular Volume 91.1 fL (83.0-100.0); Mean Platelet Volume 9.2 fL (9.4-12.4); Monocytes # 0.5 K/mcL (0.0-1.3); Monocytes % 6.2 %; Neutrophils # 4.9 K/mcL (1.6-8.9); Platelet Count 220 K/mcL (140-400); Red Blood Count 4.18 M/mcL (3.82-4.97); Red Cell Distribution Width 13.4 % (11.5-14.5); Segmented Neutrophils % 61.3 %
[2019-12-21 19:08] LABS: Alanine Aminotransferase 355 Units/L (7-52); Albumin 3.8 g/dL (3.5-5.7); Alkaline Phosphatase 113 Units/L (34-104); Aspartate Amino Transferase 347 Units/L (13-39); BUN/Creatinine Ratio 25 (6-26); Bilirubin,Direct 0.3 mg/dL (0.0-0.2); Bilirubin,Indirect 0.4 mg/dL (0.0-1.0); Bilirubin,Total 0.7 mg/dL (0.3-1.0); Blood Urea Nitrogen 13 mg/dL (6-20); Calcium 8.8 mg/dL (8.6-10.3); Carbon Dioxide 23 mEq/L (23-29); Chloride 101 mEq/L (98-107); Globulin 3.9 g/dL (2.4-3.5); Glucose 95 mg/dL (70-105); Magnesium 1.7 mg/dL (1.6-2.6); Osmolality,Calculated 274 (280-300); Potassium 3.7 mEq/L (3.5-5.1); Sodium 132 mEq/L (136-145); Total Protein 7.7 g/dL (6.4-8.9); Troponin I < 0.03 ng/mL (< 0.04); eGFR For African Americans > 60 (> 60); eGFR For Non-African Americans > 60 (> 60)
[2019-12-21] MEDS ORDERED: Ziprasidone 10 MG in Water for inj. (sterile) 0.5 ML IM ONE (20:28)
[2019-12-21] MEDS ORDERED: *HR* HYDROmorphone (PF) 1 MG/ML SYRINGE IVP ONE (20:28)
[2019-12-21 20:35] LABS: INR 1.3; Prothrombin Time 14.3 Seconds (9.4-12.1)
[2019-12-21 20:37] LABS: Activated Partial Thrombo Time 35.5 Seconds (26.0-36.0)
[2019-12-21 21:10] LABS: Hepatitis B Surface Antigen Nonreactive (Nonreactive)
[2019-12-21 21:39] LABS: Hepatitis B Core IgM Nonreactive (Nonreactive)
[2019-12-21 21:41] LABS: Hepatitis A Antibody IgM Nonreactive (Nonreactive)
[2019-12-21] MEDS ORDERED: Isovue-370 500 ML BOTTLE IVP ONE (21:55)
[2019-12-21] MEDS ORDERED: Ondansetron ODT 4 MG TAB.RAPDIS SL PRN (21:59)
[2019-12-21] MEDS ORDERED: Naloxone 0.4 MG/ML INJ IVP PRN (21:59)
[2019-12-21 22:25] LABS: Gamma Glutamyl Transpeptidase 66 Units/L (7-64)
[2019-12-21 22:36] LABS: C-Reactive Protein 14 mg/L (Less than 10)
[2019-12-22] MEDS: Piperacillin/Tazobactam 3.375 GM in 0.9 % Sodium Chloride Mini Bag 100 ML IVPB SCH ×2 (00:35→07:43)
[2019-12-22 02:40] LABS: Procalcitonin 0.23 ng/mL (0.00-0.15)
[2019-12-22 03:48] LABS: Hepatitis C Virus Antibody Reactive (Nonreactive)
[2019-12-22] MEDS ORDERED: *HR* Midazolam HCl 2 MG/2 ML VIAL ONE (12:01)
[2019-12-22] MEDS ORDERED: *HR* Propofol 200 MG/20 ML VIAL IVP ONE (12:01)
[2019-12-22] MEDS ORDERED: Dexamethasone 4 MG/ML VIAL ONE (12:01)
[2019-12-22] MEDS ORDERED: Ondansetron 4 MG/2 ML VIAL ONE (12:01)
[2019-12-22] MEDS ORDERED: Lidocaine -MPF 2% 2 ML VIAL ONE (12:01)
[2019-12-22] MEDS ORDERED: *HR* FentaNYL (PF) 100 MCG/2 ML VIAL ONE ×2 (12:01→12:45)
[2019-12-22] MEDS ORDERED: Bupivacaine/EPI 1:200k 0.5%PF 10 ML VIAL ONE (12:10)
[2019-12-22] MEDS ORDERED: *HR* Promethazine 25 MG/ML VIAL IVP PRN ×2 (12:26→13:30)
[2019-12-22] MEDS ORDERED: *HR* HYDROmorphone PF 0.5 MG/0.5 ML SYRINGE IVP PRN ×2 (12:26→13:30)
[2019-12-22] MEDS ORDERED: *HR* OxyCODONE Immed Rel 5 MG TABLET PO PRN (12:26)
[2019-12-22] MEDS: Ondansetron 4 MG/2 ML VIAL IVP ONE ×2 (13:00→13:33)
[2019-12-22] MEDS ORDERED: Ondansetron ODT 4 MG TAB.RAPDIS SL PRN (13:30)
[2019-12-22] MEDS ORDERED: Ondansetron 4 MG/2 ML VIAL IVP ONE (13:30)
[2019-12-22] MEDS ORDERED: Naloxone 0.4 MG/ML INJ IVP PRN (13:30)
[2019-12-22] MEDS ORDERED: Piperacillin/Tazobactam 3.375 GM in 0.9 % Sodium Chloride Mini Bag 100 ML IVPB SCH (16:00)
[2019-12-22 17:57] LABS: Amphetamine Screen,Urine Positive ng/mL (Cutoff=1000)
[2019-12-22 17:58] LABS: Barbiturate Screen,Urine Negative ng/mL (Cutoff=200); Benzodiazepines Screen,Urine Positive ng/mL (Cutoff=200); Cannabinoid Screen,Urine Positive ng/mL (Cutoff = 50); Cocaine Screen,Urine Negative ng/mL (Cutoff= 300); Opiate Screen,Urine Positive ng/mL (Cutoff=300); Phencyclidine Screen,Urine Negative ng/mL (Cutoff=25)
[2019-12-22 18:39] VITALS: BP 108/63
[2019-12-22] MEDS ORDERED: Aminoglycoside Consult 1 EACH MC ONE (20:09)
[2019-12-22] MEDS ORDERED: *HR* Heparin 5,000 UNIT/ML VIAL SQ SCH (22:00)
== END 2019-12-22 20:10 | disposition left against medical advice (07) ==
LOC: EMEROOARM 17:04 → 3ANU 17:04 → SUATTDRO 20:43 → 3ANU 21:23
PROVIDERS: ADMIT Internal Medicine; ATTEND Pharmacist

== ENCOUNTER 2021-01-10 20:03 | Observation (INO) ==
[2021-01-10] MEDS ORDERED: Isovue-370 500 ML BOTTLE IVP ONE (21:55)
[2021-01-10 23:24] LABS: Basophils % 0.4 %; Eosinophils # 0.2 K/mcL (0.0-0.6); Eosinophils % 2.4 %; Hematocrit 39.2 % (35.3-44.9); Hemoglobin 12.9 g/dL (11.5-15.4); Immature Granulocytes % 0.3 % (0-4); Lymphocytes # 1.7 K/mcL (0.6-4.6); Lymphocytes % 23.6 %; Mean Corpuscular HGB Conc 32.9 g/dL (31.6-35.5); Mean Corpuscular Hemoglobin 31.4 pg (28.0-33.3); Mean Corpuscular Volume 95.4 fL (83.0-100.0); Mean Platelet Volume 9.1 fL (9.4-12.4); Monocytes # 0.6 K/mcL (0.0-1.3); Monocytes % 7.9 %; Neutrophils # 4.6 K/mcL (1.6-8.9); Platelet Count 211 K/mcL (140-400); Red Blood Count 4.11 M/mcL (3.82-4.97); Red Cell Distribution Width 11.7 % (11.5-14.5); Segmented Neutrophils % 65.4 %
[2021-01-10 23:41] LABS: Alanine Aminotransferase 15 Units/L (7-52); Albumin 3.9 g/dL (3.5-5.7); Alkaline Phosphatase 101 Units/L (34-104); Aspartate Amino Transferase 17 Units/L (13-39); BUN/Creatinine Ratio 13 (6-26); Bilirubin,Direct 0.2 mg/dL (0.0-0.2); Bilirubin,Indirect 0.5 mg/dL (0.0-1.0); Bilirubin,Total 0.7 mg/dL (0.3-1.0); Blood Urea Nitrogen 7 mg/dL (6-20); Calcium 9.2 mg/dL (8.6-10.3); Carbon Dioxide 29 mEq/L (23-29); Chloride 96 mEq/L (98-107); Globulin 4.1 g/dL (2.4-3.5); Glucose 84 mg/dL (70-105); Osmolality,Calculated 275 (280-300); Potassium 4.1 mEq/L (3.5-5.1); Sodium 134 mEq/L (136-145); Troponin I < 0.03 ng/mL (< 0.04); eGFR For African Americans > 60 (> 60); eGFR For Non-African Americans > 60 (> 60)
[2021-01-11] MEDS ORDERED: 0.9 % Sodium Chloride 1,000 ML IVC ONE (01:03)
[2021-01-11] MEDS ORDERED: Cefepime HCl 1,000 MG in Water for inj. (sterile) 10 ML IVP ONE (06:17)
[2021-01-11] MEDS ORDERED: Tdap (Boostrix) Vaccine 0.5 ML SYRINGE IM ONE (06:36)
[2021-01-11 06:59] LABS: Bilirubin,Urine Negative (Negative); Blood,Urine Negative (Negative); Clarity,Urine Clear (Clear); Color,Urine Colorless (Yellow); Glucose,Urine (UA) Normal (Normal); Ketones,Urine Negative (Negative); Leukocyte Esterase,Urine Trace (Negative); Nitrite,Urine Negative (Negative); Protein,Urine Trace mg/dL (Neg-Trace); RBC,Urine 0-3 per hpf (0-3); Specific Gravity,Urine > 1.030 (1.010-1.025); Squamous Epithelial Cell,Urine Moderate per hpf (None-Few); Urobilinogen,Urine Normal (Normal)
[2021-01-11 07:29] LABS: Barbiturate Screen,Urine Negative ng/mL (Cutoff=200)
[2021-01-11 07:31] LABS: Amphetamine Screen,Urine Positive ng/mL (Cutoff=1000); Benzodiazepines Screen,Urine Negative ng/mL (Cutoff=300); Cannabinoid Screen,Urine Positive ng/mL (Cutoff = 50); Cocaine Screen,Urine Negative ng/mL (Cutoff= 300); Opiate Screen,Urine Negative ng/mL (Cutoff=300); Phencyclidine Screen,Urine Negative ng/mL (Cutoff=25)
[2021-01-11] MEDS ORDERED: Ondansetron 4 MG/2 ML VIAL IVP PRN ×3 (07:43→16:31)
[2021-01-11] MEDS ORDERED: Naloxone 0.4 MG/ML INJ IVP PRN ×2 (07:43→16:31)
[2021-01-11] MEDS ORDERED: Ringers Solution, Lactated 1,000 ML IVC SCH ×2 (07:45→16:31)
[2021-01-11] MEDS ORDERED: *HR* Propofol 200 MG/20 ML VIAL IVP ONE (13:31)
[2021-01-11] MEDS ORDERED: *HR* Midazolam HCl 2 MG/2 ML VIAL ONE (13:31)
[2021-01-11] MEDS ORDERED: Ondansetron 4 MG/2 ML VIAL ONE (13:32)
[2021-01-11] MEDS ORDERED: Lidocaine -MPF 2% 2 ML VIAL ONE (13:32)
[2021-01-11] MEDS ORDERED: *HR* Rocuronium Bromide 50 MG/5 ML VIAL ONE (13:32)
[2021-01-11] MEDS ORDERED: Lidocaine HCL 4 ML Topical Solution (Laryng-O-Jet Kit Sterile Pak) TP ONE (13:32)
[2021-01-11] MEDS ORDERED: *HR* HYDROmorphone PF 0.5 MG/0.5 ML SYRINGE IVP PRN (13:48)
[2021-01-11] MEDS ORDERED: Famotidine 20 MG/2 ML VIAL ONE (13:52)
[2021-01-11] MEDS ORDERED: Bacitracin 50,000 UNIT, Polymyxin B Sulfate 500,000 UNIT, Sodium Chloride IRRigation 1,... IR ONE ×2 (14:00→16:31)
[2021-01-11] MEDS ORDERED: Lidocaine/EPI 1:100k 2% 20 ML VIAL ONE (14:51)
[2021-01-11] MEDS ORDERED: Sugammadex Sodium 200 MG/2 ML VIAL IV ONE (15:26)
[2021-01-11] MEDS ORDERED: Cefepime HCl 1,000 MG in 0.9 % Sodium Chloride Mini Bag 100 ML IVPB SCH (16:00)
[2021-01-11] MEDS ORDERED: Vancomycin 1,500 MG/265 ML IV.SOLN IVPB SCH ×2 (18:00)
[2021-01-11 18:45] VITALS: BP 114/74
[2021-01-11] MEDS ORDERED: Permethrin CRM 60 GM TUBE TP ONE ×2 (20:00)
[2021-01-11] MEDS ORDERED: *HR* Buprenorphine HCl 8 MG TAB.SUBL SL SCH (21:00)
[2021-01-12] MEDS ORDERED: Cefepime HCl 1,000 MG in 0.9 % Sodium Chloride Mini Bag 100 ML IVPB SCH
[2021-01-12] MEDS ORDERED: SODIUM CHLORIDE IRRIGATION IR ONE (06:00)
[2021-01-12] MEDS ORDERED: BACITRACIN 50000 UNIT IR ONE (06:00)
== END 2021-01-11 21:12 | disposition left against medical advice (07) ==
LOC: 3BNU 20:03 → EMEROOARM 20:03 → 3BNU 01-11 07:38
PROVIDERS: ADMIT Student in an Organized Health Care Education/Training Program; ATTEND Student in an Organized Health Care Education/Training Program

== ENCOUNTER 2021-12-15 16:36 | Inpatient (IN) ==
[2021-12-15 22:18] LABS: Influenza A PCR Negative (Negative); Influenza B PCR Negative (Negative); Resp. Syncytial Virus PCR Negative (Negative)
[2021-12-15 22:19] LABS: SARS-CoV-2 by PCR (In House) Negative (Negative)
[2021-12-15] MEDS ORDERED: Haloperidol Lactate 5 MG/ML VIAL IM PRN (23:04)
[2021-12-15] MEDS ORDERED: *HR* LORazepam 1 MG TABLET PO PRN (23:04)
[2021-12-15] MEDS ORDERED: *HR* LORazepam 2 MG/ML VIAL IM PRN (23:04)
[2021-12-15] MEDS ORDERED: haloperidoL 5 MG TABLET PO PRN (23:04)
[2021-12-15] MEDS ORDERED: hydrOXYzine pamoate 25 MG CAPSULE PO PRN (23:04)
[2021-12-16] MEDS ORDERED: MOM Conc 10 ML UD.LIQ PO PRN (11:30)
[2021-12-16] MEDS ORDERED: Mag Hydrox/Al Hydrox/Simeth 30 ML UDC PO PRN (11:30)
[2021-12-16] MEDS: ARIPiprazole 5 MG TABLET PO SCH (20:58)
[2021-12-16] MEDS: QUEtiapine Fumarate 25 MG TABLET PO PRN (20:58)
[2021-12-16] MEDS ORDERED: Lithium Carbonate ER 300 MG TABLET.ER PO SCH (21:00)
[2021-12-16 23:13] LABS: Albumin 3.8 g/dL (3.5-5.7); Albumin/Globulin Ratio 1.2 (1.1-2.2); Bilirubin,Direct 0.1 mg/dL (0.0-0.2); Bilirubin,Indirect 0.4 mg/dL (0.0-1.0); Bilirubin,Total 0.5 mg/dL (0.3-1.0); Globulin 3.3 g/dL (2.4-3.5); Total Protein 7.1 g/dL (6.4-8.9)
[2021-12-16 23:26] LABS: Thyroid Stimulating Hormone 0.558 mcIU/mL (0.340-5.600)
[2021-12-17] MEDS: Nicotine 21 MG PATCH.TD24 TD SCH (11:15)
[2021-12-17] MEDS: Cyanocobalamin (B-12) 1,000 MCG TABLET PO SCH (14:19)
[2021-12-17] MEDS: Vitamin E 200 UNIT (90MG) CAPSULE PO SCH (16:45)
[2021-12-17] MEDS: QUEtiapine Fumarate 25 MG TABLET PO PRN (20:48)
[2021-12-17] MEDS: Lithium Carbonate ER 300 MG TABLET.ER PO SCH (20:49)
[2021-12-17] MEDS: ARIPiprazole 5 MG TABLET PO SCH (20:49)
[2021-12-18] MEDS: Lithium Carbonate ER 300 MG TABLET.ER PO SCH ×2 (09:41→20:52)
[2021-12-18] MEDS: Cyanocobalamin (B-12) 1,000 MCG TABLET PO SCH (09:41)
[2021-12-18] MEDS: Vitamin E 200 UNIT (90MG) CAPSULE PO SCH (09:41)
[2021-12-18] MEDS: Nicotine 21 MG PATCH.TD24 TD SCH (09:42)
[2021-12-18] MEDS: Acetaminophen 325 MG TABLET PO PRN ×2 (15:47→21:01)
[2021-12-18 20:41] VITALS: TEMP 98.1
[2021-12-18] MEDS: QUEtiapine Fumarate 25 MG TABLET PO PRN (20:52)
[2021-12-18] MEDS ORDERED: ARIPiprazole 10 MG TABLET PO SCH (21:00)
[2021-12-19] MEDS: Acetaminophen 325 MG TABLET PO PRN (04:09)
[2021-12-19] MEDS ORDERED: Benzocaine 20% 12 APPL GEL..GRAM. TP PRN (08:26)
[2021-12-19] MEDS ORDERED: Ibuprofen 400 MG TABLET PO PRN (08:27)
[2021-12-19] MEDS: Cyanocobalamin (B-12) 1,000 MCG TABLET PO SCH (09:02)
[2021-12-19] MEDS: Vitamin E 200 UNIT (90MG) CAPSULE PO SCH (09:02)
[2021-12-19] MEDS: Nicotine 21 MG PATCH.TD24 TD SCH (09:02)
[2021-12-19] MEDS: Lithium Carbonate ER 300 MG TABLET.ER PO SCH (09:03)
[2021-12-19 09:18] VITALS: BP 110/80; PULSE 100; O2SAT 98
[2021-12-19] MEDS ORDERED: ARIPiprazole 400 MG SUSER.SYR IM SCH (10:00)
== END 2021-12-19 14:50 | disposition home or self-care (01) | DRG 753 ==
LOC: EMEROOARM 16:36 → 1ANU 23:14
PROVIDERS: ADMIT Psychiatry & Neurology Psychiatry; ATTEND Psychiatry & Neurology Psychiatry